=== PATIENT | female | born 1950 | race Caucasian/White ===

== ENCOUNTER 2022-01-13 11:10 | Outpatient (REF) | payer OTHER, SELFPAY ==
[2022-01-13 13:40] LABS: MANUAL DIFF FLAG NO
[2022-01-13 13:47] LABS: Basophils Absolute Auto 0.1 X10*3/uL (0.0-0.2); Basophils Percent Auto 1.2 % (0-2); Eosinophils Absolute Auto 0.2 X10*3/uL (0.0-0.4); Hematocrit 34.9 % (37.0-47.0); Hemoglobin 11.5 g/dl (12.0-16.0); Imm Gran Abs Auto 0.02 X10*3/uL (0.00-0.03); Imm Gran Pct Auto 0.4 % (0.0-0.4); Lymphocytes Absolute Auto 1.4 X10*3/uL (1.2-4.9); Lymphocytes Percent Auto 25.4 % (20-40); Mean Corpuscular Hemoglobin 29.1 pg (27.0-33.0); Mean Corpuscular Volume 88.4 fL (80.0-98.0); Mean Platelet Volume 9.2 fL (9.4-12.3); Monocytes Absolute Auto 0.4 X10*3/uL (0.1-1.2); Monocytes Percent Auto 7.4 % (2-11); Neutrophils Absolute Auto 3.5 x10*3/uL (2.0-8.3); Neutrophils Percent Auto 62.6 % (45-73); Platelet Count 372 X10*3/uL (160-400); Red Blood Count 3.95 X10*6/uL (4.20-5.50); Red Cell Distribution Width 12.7 % (11.0-16.0); White Blood Count 5.7 X10*3/uL (4.8-10.8)
[2022-01-13 14:28] LABS: Erythrocyte Sedimentation Rate 55 MM/HR (0-20)
[2022-01-13 14:30] LABS: Alanine Aminotransferase 25 U/L (0-31); Alkaline Phosphatase 132 U/L (39-117); Anion Gap 14 (12-20); Aspartate Amino Transferase 25 U/L (5-31); Bilirubin Total 0.4 mg/dL (0.0-1.0); Blood Urea Nitrogen 10 mg/dL (9-16); C Reactive Protein 0.88 mg/dL (< or = 0.50); Calcium 9.4 mg/dL (8.4-10.2); Carbon Dioxide 27 mmol/L (22-29); Chloride 103 mmol/L (96-108); Estimated Glomerular Filt Rate > 60; Glucose Random 91 mg/dL (60-115); Potassium 4.5 mmol/L (3.3-5.1); Sodium 139 mmol/L (135-145); Total Protein 7.6 g/dL (6.5-8.0)
[2022-01-14 07:53] LABS: HBS Num1 1.62 mIU/mL (0-7.99); HBc Num1 0.15 S/CO (0.00-0.79); HBsAGNum1 0.23 S/CO (0.00-0.99); Hepatitis B Core Antibody Nonreactive (Nonreactive); Hepatitis B Surface Antigen Negative (Negative); ~HepC Num1 0.09 S/CO (0.00-0.79); ~Hepatitis B Surface Antibody NONREACTIVE (Nonreactive); ~Hepatitis C Antibody Nonreactive (Nonreactive)
[2022-01-14 18:31] LABS: Cyclic Citrullinated Peptide >250 UNITS
[2022-01-15 07:55] LABS: Hepatitis A Antibody IgM 0.12 Index (0-0.79); ~Hepatitis A Antibody IgM Nonreactive (Nonreactive)
[2022-01-18 12:46] LABS: TS Negative Control Passed; TS Panel A 0; TS Panel B 0; TS Positive Control Passed; TSpotTB Negative (Negative)
== END 2022-01-13 11:11 | disposition home or self-care (01) ==
LOC: HO.10HDL 11:10
PROVIDERS: Visit Provider Internal Medicine Rheumatology
DX: Z11.1 Encounter for screening for respiratory tuberculosis (principal); M06.9 Rheumatoid arthritis, unspecified
CPT/HCPCS: 36415; 80053; 85025; 85652; 86140; 86200; 86431; 86481; 86704; 86706; 86709; 86803; 87340

== ENCOUNTER 2022-03-02 10:10 | Outpatient (REF) | payer OTHER, SELFPAY ==
[2022-03-02 10:49] LABS: MANUAL DIFF FLAG NO
[2022-03-02 10:53] LABS: Basophils Absolute Auto 0.1 X10*3/uL (0.0-0.2); Basophils Percent Auto 1.2 % (0-2); Eosinophils Absolute Auto 0.2 X10*3/uL (0.0-0.4); Eosinophils Percent Auto 3.1 % (0-4); Hematocrit 34.5 % (37.0-47.0); Hemoglobin 11.2 g/dl (12.0-16.0); Imm Gran Abs Auto 0.01 X10*3/uL (0.00-0.03); Imm Gran Pct Auto 0.1 % (0.0-0.4); Lymphocytes Absolute Auto 1.7 X10*3/uL (1.2-4.9); Lymphocytes Percent Auto 25.2 % (20-40); Mean Corpuscular HGB Conc 32.5 g/dl (31.0-35.0); Mean Corpuscular Volume 89.4 fL (80.0-98.0); Mean Platelet Volume 9.1 fL (9.4-12.3); Monocytes Absolute Auto 0.5 X10*3/uL (0.1-1.2); Monocytes Percent Auto 6.7 % (2-11); Neutrophils Absolute Auto 4.2 x10*3/uL (2.0-8.3); Neutrophils Percent Auto 63.7 % (45-73); Platelet Count 458 X10*3/uL (160-400); Red Blood Count 3.86 X10*6/uL (4.20-5.50); Red Cell Distribution Width 12.8 % (11.0-16.0); White Blood Count 6.7 X10*3/uL (4.8-10.8)
[2022-03-02 11:04] LABS: Alanine Aminotransferase 20 U/L (0-31); Aspartate Amino Transferase 17 U/L (5-31); C Reactive Protein 0.53 mg/dL (< or = 0.50); Estimated Glomerular Filt Rate > 60
[2022-03-02 11:33] LABS: Erythrocyte Sedimentation Rate 64 MM/HR (0-20)
== END 2022-03-02 10:11 | disposition home or self-care (01) ==
LOC: HO.10HDL 10:10
PROVIDERS: Visit Provider Internal Medicine Rheumatology
DX: M06.9 Rheumatoid arthritis, unspecified (principal); Z79.899 Other long term (current) drug therapy
CPT/HCPCS: 36415; 82565; 84450; 84460; 85025; 85652; 86140

== ENCOUNTER 2022-05-26 12:21 | Outpatient (REF) | payer OTHER, SELFPAY ==
[2022-05-26 13:55] LABS: MANUAL DIFF FLAG NO
[2022-05-26 14:01] LABS: Basophils Absolute Auto 0.1 X10*3/uL (0.0-0.2); Basophils Percent Auto 1.3 % (0-2); Eosinophils Absolute Auto 0.2 X10*3/uL (0.0-0.4); Eosinophils Percent Auto 3.1 % (0-4); Hematocrit 33.8 % (37.0-47.0); Imm Gran Abs Auto 0.01 X10*3/uL (0.00-0.03); Imm Gran Pct Auto 0.2 % (0.0-0.4); Lymphocytes Absolute Auto 1.8 X10*3/uL (1.2-4.9); Lymphocytes Percent Auto 30.1 % (20-40); Mean Corpuscular HGB Conc 32.5 g/dl (31.0-35.0); Mean Corpuscular Hemoglobin 29.1 pg (27.0-33.0); Mean Corpuscular Volume 89.4 fL (80.0-98.0); Mean Platelet Volume 9.3 fL (9.4-12.3); Monocytes Absolute Auto 0.4 X10*3/uL (0.1-1.2); Monocytes Percent Auto 6.8 % (2-11); Neutrophils Absolute Auto 3.6 x10*3/uL (2.0-8.3); Neutrophils Percent Auto 58.5 % (45-73); Platelet Count 393 X10*3/uL (160-400); Red Blood Count 3.78 X10*6/uL (4.20-5.50); Red Cell Distribution Width 12.7 % (11.0-16.0); White Blood Count 6.1 X10*3/uL (4.8-10.8)
[2022-05-26 14:21] LABS: Alanine Aminotransferase 15 U/L (0-31); Aspartate Amino Transferase 16 U/L (5-31); C Reactive Protein 0.42 mg/dL (< or = 0.50); Estimated Glomerular Filt Rate > 60
[2022-05-26 14:39] LABS: Erythrocyte Sedimentation Rate 44 MM/HR (0-20)
== END 2022-05-26 12:22 | disposition home or self-care (01) ==
LOC: HO.WFDLDS 12:21
PROVIDERS: Visit Provider Internal Medicine Rheumatology
DX: M06.9 Rheumatoid arthritis, unspecified (principal); Z79.899 Other long term (current) drug therapy
CPT/HCPCS: 36415; 82565; 84450; 84460; 85025; 85652; 86140

== ENCOUNTER → 2022-06-02 09:42 | Outpatient (BNVA) | payer OTHER, SELFPAY | PROVIDERS: PCP Internal Medicine; Visit Provider Internal Medicine Rheumatology | DX: M17.0 Bilateral primary osteoarthritis of knee (principal) ==

== ENCOUNTER 2022-09-09 11:01 | Outpatient (REF) | payer OTHER, SELFPAY ==
[2022-09-09 14:23] LABS: MANUAL DIFF FLAG NO
[2022-09-09 14:27] LABS: Basophils Absolute Auto 0.1 X10*3/uL (0.0-0.2); Basophils Percent Auto 1.6 % (0-2); Eosinophils Absolute Auto 0.2 X10*3/uL (0.0-0.4); Hematocrit 32.7 % (37.0-47.0); Hemoglobin 10.8 g/dl (12.0-16.0); Imm Gran Abs Auto 0.01 X10*3/uL (0.00-0.03); Imm Gran Pct Auto 0.2 % (0.0-0.4); Lymphocytes Absolute Auto 1.7 X10*3/uL (1.2-4.9); Mean Corpuscular Hemoglobin 29.9 pg (27.0-33.0); Mean Corpuscular Volume 90.6 fL (80.0-98.0); Mean Platelet Volume 9.3 fL (9.4-12.3); Monocytes Absolute Auto 0.4 X10*3/uL (0.1-1.2); Monocytes Percent Auto 6.9 % (2-11); Neutrophils Absolute Auto 3.7 x10*3/uL (2.0-8.3); Neutrophils Percent Auto 60.3 % (45-73); Platelet Count 404 X10*3/uL (160-400); Red Blood Count 3.61 X10*6/uL (4.20-5.50); Red Cell Distribution Width 13.4 % (11.0-16.0); White Blood Count 6.1 X10*3/uL (4.8-10.8)
[2022-09-09 14:34] LABS: Alanine Aminotransferase 27 U/L (0-31); Aspartate Amino Transferase 22 U/L (5-31); C Reactive Protein 0.53 mg/dL (< or = 0.50); Estimated Glomerular Filt Rate > 60
[2022-09-09 15:19] LABS: Erythrocyte Sedimentation Rate 38 MM/HR (0-20)
== END 2022-09-09 11:02 | disposition home or self-care (01) ==
LOC: HO.WFDLDS 11:01
PROVIDERS: Visit Provider Internal Medicine Rheumatology
DX: M06.9 Rheumatoid arthritis, unspecified (principal); Z79.899 Other long term (current) drug therapy
CPT/HCPCS: 36415; 82565; 84450; 84460; 85025; 85652; 86140

== ENCOUNTER 2022-09-15 08:33 | Outpatient (REF) | payer OTHER, SELFPAY ==
--- NOTE | ~2022-09-15 | XR_ITS ---
EXAMINATION: XR HIP, RIGHT CLINICAL INFORMATION: Pain COMPARISON: None available. TECHNIQUE: Two views of the right hip. FINDINGS: Bone alignment is normal. No fracture or dislocation. Severe right hip arthritis with joint space narrowing, osteophyte formation and subchondral cyst formation. Soft tissues are normal. XR/XR hip RT min 2V IMPRESSION: Severe right hip osteoarthritis.
== END 2022-09-15 08:34 | disposition home or self-care (01) ==
LOC: HO.XRAY 08:33
PROVIDERS: PCP Internal Medicine; Visit Provider Internal Medicine Rheumatology
DX: M06.9 Rheumatoid arthritis, unspecified (principal); M25.551 Pain in right hip; M17.0 Bilateral primary osteoarthritis of knee; Z79.899 Other long term (current) drug therapy
CPT/HCPCS: 73502

== ENCOUNTER 2022-11-22 12:36 | Outpatient (REF) | payer OTHER, SELFPAY ==
[2022-11-22 13:48] LABS: MANUAL DIFF FLAG NO
[2022-11-22 14:01] LABS: Basophils Absolute Auto 0.1 X10*3/uL (0.0-0.2); Basophils Percent Auto 1.9 % (0-2); Eosinophils Absolute Auto 0.2 X10*3/uL (0.0-0.4); Eosinophils Percent Auto 3.4 % (0-4); Hematocrit 32.9 % (37.0-47.0); Imm Gran Abs Auto 0.03 X10*3/uL (0.00-0.03); Imm Gran Pct Auto 0.4 % (0.0-0.4); Lymphocytes Absolute Auto 1.6 X10*3/uL (1.2-4.9); Lymphocytes Percent Auto 23.7 % (20-40); Mean Corpuscular HGB Conc 33.4 g/dl (31.0-35.0); Mean Corpuscular Hemoglobin 30.1 pg (27.0-33.0); Mean Corpuscular Volume 89.9 fL (80.0-98.0); Mean Platelet Volume 9.3 fL (9.4-12.3); Monocytes Absolute Auto 0.4 X10*3/uL (0.1-1.2); Monocytes Percent Auto 6.4 % (2-11); Neutrophils Absolute Auto 4.3 x10*3/uL (2.0-8.3); Neutrophils Percent Auto 64.2 % (45-73); Platelet Count 352 X10*3/uL (160-400); Red Blood Count 3.66 X10*6/uL (4.20-5.50); Red Cell Distribution Width 13.2 % (11.0-16.0); White Blood Count 6.7 X10*3/uL (4.8-10.8)
[2022-11-22 14:21] LABS: Alanine Aminotransferase 18 U/L (0-31); Aspartate Amino Transferase 19 U/L (5-31); C Reactive Protein 0.58 mg/dL (< or = 0.50); Estimated Glomerular Filt Rate > 60
[2022-11-22 14:51] LABS: Erythrocyte Sedimentation Rate 40 MM/HR (0-20)
== END 2022-11-22 12:37 | disposition home or self-care (01) ==
LOC: HO.WFDLDS 12:36
PROVIDERS: Visit Provider Internal Medicine Rheumatology
DX: M06.9 Rheumatoid arthritis, unspecified (principal); Z79.899 Other long term (current) drug therapy
CPT/HCPCS: 36415; 82565; 84450; 84460; 85025; 85652; 86140

== ENCOUNTER 2022-12-16 09:26 | Outpatient (AMB) | payer OTHER, SELFPAY ==
[2022-12-16 09:28] VITALS: BP 118/70; PULSE 76; TEMP 36.5; O2SAT 97; BMI 24.9
--- NOTE | 2022-12-16 09:28 | MHC.OFFVIS ---
Intake Vital Signs 12/16/22 09:28 Height 5 ft 4 in Weight 145 lb 4.554 oz BMI 24.9 BP 118/70 Blood Pressure Location Rt brachial Position Sitting Pulse 76 Pulse Source Pulse Oximeter Temp 97.7 F Temp Source Skin Pulse Oximetry (%) 97 Intake Visit Reasons: RA Intake Note: Pt seen today for RA follow up. Reports she went to [place] ED for stomach issues last week. Representative Government Relations Required: No Accompanied by: Self / Same As Patient Allergies erythromycin base Allergy (Intermediate, Verified 12/16/22 09:30) Vomiting Seasonal Allergies Allergy (Intermediate, Verified 12/16/22 09:30) Runny Nose codeine [CODEINE] Allergy (Unknown, Unverified 12/16/22 09:30) NAUSEA Medication List - Last Reconciled 12/16/22 by Jef Turner MD acetaminophen ER (Tylenol 8 Hour) 650 mg PO Q8H PRN calcium carbonate-vitamin D3 500 mg-10 mcg (400 unit) (Calcium 500 With D) 1 tab PO BID cyanocobalamin (vitamin B-12) 500 mcg PO DAILY famotidine 20 mg PO BID folic acid 1 mg PO DAILY methotrexate sodium 15 mg (6 x 2.5 mg) PO QWEEK psyllium husk (Metamucil) 1 tbsp PO DAILY HPI HPI Comments History of Present Illness Details The patient returns for evaluation of her rheumatoid arthritis. She remains on 15 mg weekly methotrexate and folic acid 1 mg daily. She had another episode of left lower quadrant pain. She went to the ER last week. CT scanning did not reveal diverticulitis. Her methotrexate was continued. She says she is thought to have irritable bowel symptoms. She does take Metamucil which is somewhat helpful but she alternates between constipation and diarrhea. There is some intermittent medial knee compartment pain with walking. She has known mild osteoarthritis in the right hip but that does not currently bother her. PFSH Surgical History Hx of cataract extraction Hx of colonoscopy Hx of eye surgery Hx of tonsillectomy S/P breast biopsy, right S/P fine needle aspiration Family History Mother Anemia Breast cancer Hypertension Father Rheumatoid arthritis Lung cancer Hypertension Daughter Thyroid cancer Social History Household Members Other:: lives alone Housing: House Are you a primary day care aide to a significant other at home: No Do you presently have visiting nurse or other home services: No 75 years or older and lives alone: No Alcohol intake: current Alcohol intake frequency: holidays/special occasions only Alcohol type: hard liquor Patient Tobacco Use Status: Former Tobacco user Quit Date: 2017 e-Cigarette/Vaping Use: Never Used service: No Current occupational status: retired 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 Card Details: Negative chest pain, edema and syncope Resp Details: Negative for SOB, cough and wheezing GI Details: Alternating constipation and diarrhea. Occasional lower abdominal pains. Negative indigestion/heartburn, nausea, bowel changes, and bloody stool. Details: Negative for dysuria, hematuria, nocturia, decreased force/flow and genital discharge Endo Details: Negative for polyuria and polydypsia Cesar/Lymph Details: Negative for excessive bruising or bleeding. Physical Exam Vital Signs: Last Vital Signs Temp 97.7 F 12/16/22 09:28 Pulse 76 12/16/22 09:28 BP 118/70 12/16/22 09:28 Pulse Ox 97 12/16/22 09:28 BMI result Body Mass Index 24.9 APPEARANCE: Patient in no acute distress EYES no redness, pupils equal and reactive to light, eyelids normal ABD: Normal bowel sounds, no organomegaly, masses or tenderness. EXTREMITIES: No edema, no calf tenderness, normal peripheral pulses. JOINT EXAM:?? Cervical Spine:.? Mild discomfort with lateral flexion at 10 degrees of rotation at 45 degrees.? Some cervical muscle tenderness. Thoracic Spine:.? No scoliosis.? No tenderness on palpation. Lumbar Spine:.? Alignment normal.? Full range of motion without pain, no tenderness. Chest Wall:.? No tenderness, swelling, increased warmth or erythema. Hands:.? Right:? There is mild soft tissue swelling at the 1st 3 MCPs but they are not tender today.? There is some bony enlargement without tenderness at the thumb IP and 2nd PIP joints..? There is no thenar atrophy, flexor tendon triggering, or sensory loss.? Left:? There is a suggestion of some slight swelling in the 1st MCP joint but they are not tender.? There is some minimal bony enlargement at the thumb IP joint without tenderness.? No thenar atrophy, sensory loss or flexor tendon triggering.? Wrists: Right: Mild pain with flexion extension at 75 degrees with some slight dorsal tenderness.? There does seem to be some thickening on the volar aspect.? No redness or warmth.? Left: Pain-free range of motion to 75 degrees flexion or extension with some slight volar thickening and mild tenderness today.? No redness or warmth.? Negative Phalen's and Tinel signs. Elbows:. Normal pain-free range of motion without tenderness, swelling, increased warmth or erythema. Shoulders:.?? Left: Slight pain with extremes of motion with some minimal anterior tenderness.? No abductor weakness or adenopathy .? Right:? Full range of motion without pain. No tenderness, weakness, swelling, increased warmth or erythema. Hips:? Right:? She has limitation of internal and external rotation.? There is no apparent hyperabduction possible.? Attempts to push these ranges of motion cause some groin and buttock pains.? normal pain free range of motion..? Left:? Full range of motion without pain. Hip bursa:.? No tenderness. Knees: Right:? Mild patellofemoral crepitus with pain at the extremes of full extension or flexion beyond 90 degrees.? There is mild medial tenderness without effusion, tenderness, swelling, increased warmth or erythema.? Left:? Mild pain with extremes of flexion or extension.? There is moderate patellofemoral crepitus and mild medial tenderness with no effusion, redness or warmth. Ankles:.? Normal pain-free range of motion without tenderness, swelling, increased warmth or erythema. Feet:? Normal pain-free range of motion with mild 1st MTP bony enlargement bilaterally.? There is hallux valgus deformity bilaterally but no tenderness, soft tissue swelling, increased warmth or erythema.? Results Reviewed Results Reviewed: Laboratory Tests 11/22/22 11/22/22 11/22/22 12:40 12:40 12:40 WBC 6.7 Hgb 11.0 L ESR 40 H Creatinine 0.72 AST 19 ALT 18 C-Reactive Protein 0.58 H 12/06/2022: Lab work from [facility]: Hemoglobin 11.5, white count normal, AST 17, ALT 16, creatinine 0.7 [facility] Result Report Patient: Johanne Gomes Date of Service: 05/26/21 ? ? Patient Gender: Female Ordering Provider: Denise Rubio : 1950 ? ? ? Final X-RAY KNEE 3 VIEW - W/O INJURY Exam Date: 05/26/2021 11:05 AM Ordering Diagnosis: Chronic pain of both knees ? History: Chronic pain. ? Bilateral knees, 3 views each: ? PRIOR: None. ? FINDINGS: Bony structures are radiographically intact. ? There is moderate narrowing of the medial femoral tibial compartment bilaterally. ? There is mild degenerative spurring of the patellofemoral compartment of the right knee. ? There is mild degenerative spurring of the medial femoral tibial compartment and patellofemoral compartment of the left knee. ? There is a small left knee joint effusion. ? There is atherosclerosis. ? IMPRESSION Degenerative changes of both knees, left greater than right. ? Small left knee joint effusion. ? 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 Rheumatoid factor and CCP markedly positive. January,: Methotrexate started Code(s): M06.9 - Rheumatoid arthritis, unspecified Plan Rheumatoid arthritis with good control of symptoms with current treatment. Unfortunately she still gets this abdominal pain and and she has a hiistory of 1 episode of diverticulitis. Therefore there will always be this concern that these episodes of pain could be another bout of diverticulitis. For now we will continue with current treatment as the lab work looks good. She does have some mild OA in the right hip and knees but hopefully those will not progress with continued treatment of her rheumatoid arthritis. We will schedule her back for 3-4 months with lab work before that visit. Orders: Orders Alanine Aminotransferase Today M06.9 - Rheumatoid arthritis, unspecified, Z79.899 - Other termite control service representative (current) drug therapy Aspartate Amino Transferase Today M06.9 - Rheumatoid arthritis, unspecified, Z79.899 - Other senior care (current) drug therapy Creatinine Today M06.9 - Rheumatoid arthritis, unspecified, Z79.899 - Other termite control service representative (current) drug therapy C Reactive Protein Today M06.9 - Rheumatoid arthritis, unspecified Complete Blood Count Auto Diff Today M06.9 - Rheumatoid arthritis, unspecified, Z79.899 - Other senior care (current) drug therapy Erythrocyte Sedimentation Rate Today M06.9 - Rheumatoid arthritis, unspecified Coding Level of Care Code Est Pt Level 3 (39831) Diagnoses Osteoarthritis of knees, bilateral M17.0 Osteoarthritis of right hip M16.11 MCC current use of immunosuppressive drug Z79.899 Rheumatoid arthritis M06.9
== END 2022-12-16 09:57 | disposition home or self-care (01) ==
PROVIDERS: PCP Internal Medicine; Visit Provider Internal Medicine Rheumatology
DX: M17.0 Bilateral primary osteoarthritis of knee (principal); M16.11 Unilateral primary osteoarthritis, right hip; Z79.899 Other long term (current) drug therapy; M06.9 Rheumatoid arthritis, unspecified
CPT/HCPCS: 99213

== ENCOUNTER → 2022-12-16 09:26 | Outpatient (BNVA) | payer OTHER, SELFPAY | PROVIDERS: PCP Internal Medicine; Visit Provider Internal Medicine Rheumatology ==

== ENCOUNTER 2023-04-12 12:15 | Outpatient (REF) | payer OTHER, SELFPAY ==
[2023-04-12 14:41] LABS: MANUAL DIFF FLAG NO
[2023-04-12 14:43] LABS: Basophils Absolute Auto 0.1 X10*3/uL (0.0-0.2); Basophils Percent Auto 1.8 % (0-2); Eosinophils Absolute Auto 0.1 X10*3/uL (0.0-0.4); Eosinophils Percent Auto 2.4 % (0-4); Hematocrit 32.9 % (37.0-47.0); Hemoglobin 10.8 g/dl (12.0-16.0); Imm Gran Abs Auto 0.01 X10*3/uL (0.00-0.03); Imm Gran Pct Auto 0.2 % (0.0-0.4); Lymphocytes Absolute Auto 1.2 X10*3/uL (1.2-4.9); Lymphocytes Percent Auto 23.6 % (20-40); Mean Corpuscular HGB Conc 32.8 g/dl (31.0-35.0); Mean Corpuscular Hemoglobin 29.1 pg (27.0-33.0); Mean Corpuscular Volume 88.7 fL (80.0-98.0); Mean Platelet Volume 9.2 fL (9.4-12.3); Monocytes Absolute Auto 0.4 X10*3/uL (0.1-1.2); Monocytes Percent Auto 6.9 % (2-11); Neutrophils Absolute Auto 3.3 x10*3/uL (2.0-8.3); Neutrophils Percent Auto 65.1 % (45-73); Platelet Count 350 X10*3/uL (160-400); Red Blood Count 3.71 X10*6/uL (4.20-5.50); Red Cell Distribution Width 13.5 % (11.0-16.0); White Blood Count 5.1 X10*3/uL (4.8-10.8)
[2023-04-12 15:05] LABS: Estimated Glomerular Filt Rate > 60
[2023-04-12 15:24] LABS: Erythrocyte Sedimentation Rate 51 MM/HR (0-20)
== END 2023-04-12 12:16 | disposition home or self-care (01) ==
LOC: HO.WFDLDS 12:15
PROVIDERS: Visit Provider Internal Medicine Rheumatology
DX: M06.9 Rheumatoid arthritis, unspecified (principal); Z79.899 Other long term (current) drug therapy
CPT/HCPCS: 36415; 82565; 85025; 85652

== ENCOUNTER 2023-04-21 10:37 | Outpatient (AMB) | payer OTHER, SELFPAY ==
[2023-04-21 10:44] VITALS: BP 138/70; PULSE 69; RESP 15; TEMP 36.6; O2SAT 98; BMI 24.0
--- NOTE | 2023-04-21 10:44 | A.OFFVIS_ITS ---
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 Required: No Accompanied by: Self / Same As Patient Allergies erythromycin base Allergy (Intermediate, Verified 04/21/23 10:46) Vomiting Seasonal Allergies Allergy (Intermediate, Verified 04/21/23 10:46) Runny Nose codeine [CODEINE] Allergy (Unknown, Unverified 04/21/23 10:46) NAUSEA Medication List - Last Reconciled 04/21/23 by Maggie Souza RN acetaminophen ER (Tylenol 8 Hour) 650 mg PO Q8H PRN calcium carbonate-vitamin D3 500 mg-10 mcg (400 unit) (Calcium 500 With D) 1 tab PO BID cyanocobalamin (vitamin B-12) 500 mcg PO DAILY famotidine 20 mg PO BID folic acid 1 mg PO DAILY methotrexate sodium 15 mg (6 x 2.5 mg) PO QWEEK NS psyllium husk (Metamucil) 1 tbsp PO DAILY HPI HPI Comments History of Present Illness Details The patient returns for evaluation of her rheumatoid arthritis. She remains on methotrexate 15 mg weekly, folic acid 1 mg daily, acetaminophen 650 mg 2 or 3 times a day if needed for pain. In general the peripheral joints are doing okay. She does have some pain in the knees particularly with longer periods of standing or walking. On those days she does take more acetaminophen. She does not think she has had any side effects with the medication. There is intermittent lower abdominal crampy pain. This is helped with various laxatives. She is currently taking the prune juice rather than the Metamucil. PFSH Surgical History Hx of cataract extraction Hx of colonoscopy Hx of eye surgery Hx of tonsillectomy S/P breast biopsy, right S/P fine needle aspiration Family History Mother Anemia Breast cancer Hypertension Father Rheumatoid arthritis Lung cancer Hypertension Daughter Thyroid cancer Social History (Reviewed 12/16/22 @ 09:32 by OBED Welch Household Members Other:: lives alone Housing: House Are you a primary primary care physician to a significant other at home: No Do you presently have visiting nurse or other home services: No Alcohol intake: current Alcohol intake frequency: holidays/special occasions only Alcohol type: hard liquor Patient Tobacco Use Status: Former Tobacco user Quit Date: 2017 e-Cigarette/Vaping Use: Never Used service: No Current occupational status: retired 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 Card Details: Negative chest pain, edema and syncope Resp Details: Negative for SOB, cough and wheezing GI Details: Intermittent crampy pains with constipation. Thought to be IBS. Negative indigestion/heartburn, nausea, bowel changes, diarrhea, constipation and bloody stool. Endo Details: Negative for polyuria and polydypsia Cesar/Lymph Details: Negative for excessive bruising or bleeding. Physical Exam Vital Signs: Last Vital Signs Temp 97.8 F 04/21/23 10:44 Pulse 69 04/21/23 10:44 Resp 15 04/21/23 10:44 BP 138/70 04/21/23 10:44 Pulse Ox 98 04/21/23 10:44 Oxygen Delivery Method Room Air 04/21/23 10:44 BMI result Body Mass Index 24.0 APPEARANCE: Patient in no acute distress EYES no redness, pupils equal and reactive to light, eyelids normal ABD: Normal bowel sounds, no organomegaly, masses or tenderness. EXTREMITIES: No edema, no calf tenderness, normal peripheral pulses. JOINT EXAM:?? Cervical Spine:? Mild discomfort with lateral flexion at 10 degrees of rotation at 45 degrees.? Some cervical muscle tenderness. Thoracic Spine:.? No scoliosis.? No tenderness on palpation. Lumbar Spine:.? Alignment normal.? Full range of motion without pain, no tenderness. Chest Wall:.? No tenderness, swelling, increased warmth or erythema. Hands:.? Right:? There is mild soft tissue swelling at the 3rd MCP without tenderness today.? There is some bony enlargement without tenderness at the thumb IP and 2nd PIP joints..? There is no thenar atrophy, flexor tendon triggering, or sensory loss.? Left:? There is a suggestion of some slight swelling in the 1st MCP joint but it is not tender.? There is some minimal bony enlargement at the thumb IP joint without tenderness.? No thenar atrophy, sensory loss or flexor tendon triggering.? Wrists: Right: No pain with flexion extension at 75 degrees with some slight dorsal tenderness.? There does seem to be some thickening on the volar aspect.? No redness or warmth.? Left: Pain-free range of motion to 75 degrees flexion or extension with some slight volar thickening and mild tenderness today.? No redness or warmth.? Negative Phalen's and Tinel signs. Elbows: Normal pain-free range of motion without tenderness, swelling, increased warmth or erythema. Shoulders:?? Left: Slight pain with extremes of motion with some minimal anterior tenderness.? No abductor weakness or adenopathy .? Right:? Full range of motion without pain. No tenderness, weakness, swelling, increased warmth or erythema. Hips:? Right:? She has limitation of internal and external rotation.? There is no apparent hyperextension possible.? Attempts to push these ranges of motion cause some groin and buttock pains.? normal pain free range of motion..? Left:? Full range of motion without pain. Hip bursa:.? No tenderness. Knees: Right:? Mild patellofemoral crepitus with pain at the extremes of full extension or flexion beyond 90 degrees.? There is mild medial tenderness without effusion, tenderness, swelling, increased warmth or erythema.? Left:? Mild pain with extremes of flexion or extension.? There is moderate patellofemoral crepitus and mild medial tenderness with no effusion, redness or warmth. Ankles:? Normal pain-free range of motion without tenderness, swelling, increased warmth or erythema. Feet:? Normal pain-free range of motion with mild 1st MTP bony enlargement bilaterally.? There is hallux valgus deformity bilaterally but no tenderness, soft tissue swelling, increased warmth or erythema.? Results Reviewed Results Reviewed: Laboratory Tests 11/22/22 04/12/23 12:40 12:17 WBC 5.1 Hgb 10.8 L ESR 51 H Creatinine 0.70 AST 19 ALT 18 C-Reactive Protein 0.58 H Assessment & Plan Assessment & Plan (1) Osteoarthritis of right hip: Code(s): M16.11 - Unilateral primary osteoarthritis, right hip (2) residential current use of immunosuppressive drug: Code(s): Z79.899 - Other retirement (current) drug therapy (3) Osteoarthritis of knees, bilateral: Code(s): M17.0 - Bilateral primary osteoarthritis of knee (4) Rheumatoid arthritis: Comment: Onset May 2021. Rheumatoid factor and CCP markedly positive. January,: Methotrexate started Code(s): M06.9 - Rheumatoid arthritis, unspecified Plan Rheumatoid arthritis with I think good control of synovitis with current treatment. The knee pain I think is primarily due to longstanding osteoarthritis. She also has some findings of OA in the hips, more common on the right. That may be giving her some knee pain but she does not really have much in the way of hip pain. She is tolerating the methotrexate at the above dose so we will continue as above. For some reason the LFTs did not get checked with the lab work last weeks so I will ask her to go to the lab today. Labs are also ordered before the next visit in about 4 months. Orders: Orders Erythrocyte Sedimentation Rate Today M06.9 - Rheumatoid arthritis, unspecified Alanine Aminotransferase Today M06.9 - Rheumatoid arthritis, unspecified, Z79.899 - Other retirement (current) drug therapy Aspartate Amino Transferase Today M06.9 - Rheumatoid arthritis, unspecified, Z79.899 - Other retirement (current) drug therapy Complete Blood Count Auto Diff Today M06.9 - Rheumatoid arthritis, unspecified, Z79.899 - Other retirement (current) drug therapy C Reactive Protein Today M06.9 - Rheumatoid arthritis, unspecified Creatinine Today M06.9 - Rheumatoid arthritis, unspecified, Z79.899 - Other intermodal truck driver (current) drug therapy Coding Level of Care Code Est Pt Level 3 (19640) Diagnoses Osteoarthritis of right hip 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
== END 2023-04-21 11:08 | disposition home or self-care (01) ==
PROVIDERS: PCP Internal Medicine; Visit Provider Internal Medicine Rheumatology
DX: M16.11 Unilateral primary osteoarthritis, right hip (principal); Z79.899 Other long term (current) drug therapy; M17.0 Bilateral primary osteoarthritis of knee; M06.9 Rheumatoid arthritis, unspecified
CPT/HCPCS: 99213

== ENCOUNTER → 2023-04-21 10:37 | Outpatient (BNVA) | payer OTHER, SELFPAY | PROVIDERS: PCP Internal Medicine; Visit Provider Internal Medicine Rheumatology ==

== ENCOUNTER 2023-04-21 11:12 | Outpatient (REF) | payer OTHER, SELFPAY ==
[2023-04-21 13:45] LABS: Alanine Aminotransferase 16 U/L (0-31); Aspartate Amino Transferase 15 U/L (5-31)
== END 2023-04-21 11:13 | disposition home or self-care (01) ==
LOC: HO.10HDL 11:12
PROVIDERS: Visit Provider Internal Medicine Rheumatology
DX: M06.9 Rheumatoid arthritis, unspecified (principal); Z79.899 Other long term (current) drug therapy
CPT/HCPCS: 36415; 84450; 84460

== ENCOUNTER 2023-08-12 11:17 | Outpatient (REF) | payer OTHER, SELFPAY ==
[2023-08-12 15:08] LABS: MANUAL DIFF FLAG NO
[2023-08-12 15:20] LABS: Basophils Absolute Auto 0.1 X10*3/uL (0.0-0.2); Basophils Percent Auto 1.4 % (0-2); Eosinophils Absolute Auto 0.1 X10*3/uL (0.0-0.4); Eosinophils Percent Auto 1.9 % (0-4); Hematocrit 32.7 % (37.0-47.0); Hemoglobin 10.8 g/dl (12.0-16.0); Imm Gran Abs Auto 0.02 X10*3/uL (0.00-0.03); Imm Gran Pct Auto 0.3 % (0.0-0.4); Lymphocytes Absolute Auto 1.3 X10*3/uL (1.2-4.9); Lymphocytes Percent Auto 21.2 % (20-40); Mean Corpuscular Hemoglobin 29.5 pg (27.0-33.0); Mean Corpuscular Volume 89.3 fL (80.0-98.0); Mean Platelet Volume 9.5 fL (9.4-12.3); Monocytes Absolute Auto 0.4 X10*3/uL (0.1-1.2); Monocytes Percent Auto 6.6 % (2-11); Neutrophils Absolute Auto 4.3 x10*3/uL (2.0-8.3); Neutrophils Percent Auto 68.6 % (45-73); Platelet Count 367 X10*3/uL (160-400); Red Blood Count 3.66 X10*6/uL (4.20-5.50); Red Cell Distribution Width 13.8 % (11.0-16.0); White Blood Count 6.3 X10*3/uL (4.8-10.8)
[2023-08-12 15:52] LABS: Alanine Aminotransferase 17 U/L (0-31); Aspartate Amino Transferase 15 U/L (5-31); Estimated Glomerular Filt Rate > 60
[2023-08-12 15:57] LABS: Erythrocyte Sedimentation Rate 57 MM/HR (0-20)
== END 2023-08-12 11:18 | disposition home or self-care (01) ==
LOC: HO.WFDLDS 11:17
PROVIDERS: Visit Provider Internal Medicine Rheumatology
DX: M06.9 Rheumatoid arthritis, unspecified (principal); Z79.899 Other long term (current) drug therapy
CPT/HCPCS: 36415; 82565; 84450; 84460; 85025; 85652; 86140

== ENCOUNTER 2023-08-18 11:36 | Outpatient (AMB) | payer OTHER, SELFPAY ==
--- NOTE | 2023-08-18 11:43 | MHC.OFFVIS ---
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: No Accompanied by: Self / Same As Patient Allergies erythromycin base Allergy (Intermediate, Verified 08/18/23 11:44) Vomiting Seasonal Allergies Allergy (Intermediate, Verified 08/18/23 11:44) Runny Nose codeine [CODEINE] Allergy (Unknown, Unverified 08/18/23 11:44) NAUSEA Medication List - Last Reconciled 08/18/23 by BRITTANI Mccann acetaminophen ER (Tylenol 8 Hour) 650 mg PO Q8H PRN calcium carbonate-vitamin D3 500 mg-10 mcg (400 unit) (Calcium 500 With D) 1 tab PO BID cyanocobalamin (vitamin B-12) 500 mcg PO DAILY dicyclomine 10 mg PO TID famotidine 20 mg PO BID folic acid 1 mg PO DAILY methotrexate sodium 15 mg (6 x 2.5 mg) PO QWEEK NS HPI HPI Comments History of Present Illness Details Ms. Hayward 73-year-old female returns for evaluation of her rheumatoid arthritis. She remains on methotrexate 15 mg weekly, folic acid 1 mg daily, acetaminophen 650 mg 2 or 3 times a day if needed for pain. In general the peripheral joints are doing okay but she continues with intermittent swelling and soreness to her hands and feet. She she also does have some pain in the knees particularly with longer periods of standing or walking. On those days she does take more acetaminophen. She denies any no side effects with the medication. There is intermittent lower abdominal crampy pain and she sees GI and was recently prescribed Bentyl. [facility], [facility] Medical History (Updated 08/18/23 @ 14:54 by BRITTANI Mccann) Anemia, iron deficiency Intermittent pain and swelling of hand Surgical History Hx of tonsillectomy Hx of eye surgery Hx of colonoscopy Hx of cataract extraction S/P fine needle aspiration S/P breast biopsy, right Family History Mother Anemia Breast cancer Hypertension Father Rheumatoid arthritis Lung cancer Hypertension Daughter Thyroid cancer Social History Household Members Other:: lives alone Housing: House Are you a primary resident care technician to a significant other at home: No Do you presently have visiting nurse or other home services: No 75 years or older and lives alone: No Alcohol intake: current Alcohol intake frequency: holidays/special occasions only Alcohol type: hard liquor Patient Tobacco Use Status: Former Tobacco user Quit Date: 2017 e-Cigarette/Vaping Use: Never Used service: No Current occupational status: retired 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 Regular rhythm, S1-S2 heard, no murmurs, rubs or gallops. LUNG:? Clear to percussion and auscultation EXTREMITIES: No edema, no calf tenderness, normal peripheral pulses. JOINT EXAM:?? Cervical Spine:? Mild discomfort with lateral flexion at 10 degrees of rotation at 45 degrees.? Some cervical muscle tenderness. Thoracic Spine:.? No scoliosis.? No tenderness on palpation. Lumbar Spine:.? Alignment normal.? Full range of motion without pain, no tenderness. Chest Wall:.? No tenderness, swelling, increased warmth or erythema. Hands:.? Right:? There is mild soft tissue swelling at the 3rd MCP with some tenderness.? There is bony enlargement without tenderness at the thumb IP and but tenderness at 2nd PIP joints..? There is no thenar atrophy, flexor tendon triggering, or sensory loss.? Left:? There is swelling in the 1st MCP joint and is mildly tender.? There is some minimal bony enlargement at the thumb IP joint without tenderness.? No thenar atrophy, sensory loss or flexor tendon triggering.? Wrists: Right: No pain with flexion extension at 75 degrees with some slight dorsal tenderness.? There does seem to be some thickening on the volar aspect.? No redness or warmth.? Left: Pain-free range of motion to 75 degrees flexion or extension with some slight volar thickening and mild tenderness today.? No redness or warmth.? Negative Phalen's and Tinel signs. Elbows: Normal pain-free range of motion without tenderness, swelling, increased warmth or erythema. Shoulders:?? Left: Slight pain with extremes of motion with some minimal anterior tenderness.? No abductor weakness or adenopathy .? Right:? Full range of motion without pain. No tenderness, weakness, swelling, increased warmth or erythema. Hips:? Right:? She has limitation of internal and external rotation.? There is no apparent hyperextension possible.? Attempts to push these ranges of motion cause some groin and buttock pains.? normal pain free range of motion..? Left:? Full range of motion without pain. Hip bursa:.? No tenderness. Knees: Right:? Mild patellofemoral crepitus with pain at the extremes of full extension or flexion beyond 90 degrees.? There is mild medial tenderness without effusion, tenderness, swelling, increased warmth or erythema.? Left:? Mild pain with extremes of flexion or extension.? There is moderate patellofemoral crepitus and mild medial tenderness with no effusion, redness or warmth. Ankles:? Normal pain-free range of motion without tenderness, swelling, increased warmth or erythema. Feet:? Normal pain-free range of motion with mild 1st MTP bony enlargement bilaterally.? There is hallux valgus deformity bilaterally but no tenderness, soft tissue swelling, increased warmth or erythema.? Results Reviewed Results Reviewed: Laboratory Tests 08/12/23 11:20 WBC 6.3 RBC 3.66 L Hgb 10.8 L Hct 32.7 L ESR 57 H Creatinine 0.69 Estimated GFR > 60 AST 15 ALT 17 C-Reactive Protein 0.40 Lab work from [place], May 2021: ESR 78, rheumatoid factor 38, hand x-ray showed mild degenerative disease. The left knee x-ray showed mild osteoarthritis. 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 Rheumatoid factor and CCP markedly positive. January,: Methotrexate started Code(s): M06.9 - Rheumatoid arthritis, unspecified Qualifiers: Rheumatoid arthritis location: multiple sites Rheumatoid factor presence: without rheumatoid factor Qualified Code(s): M06.09 - Rheumatoid arthritis without rheumatoid factor, multiple sites (5) Anemia, iron deficiency: Code(s): D50.9 - Iron deficiency anemia, unspecified Qualifiers: Iron deficiency anemia type: inadequate dietary iron intake Qualified Code(s): D50.8 - Other iron deficiency anemias Plan #+RF+CCP RA: The rheumatoid arthritis management can be improved from current treatment. The frequency of hand swelling and soreness and the consistently elevated ESR/CRP suggests that there is active disease. At this time I will increase the MTX to 8 pills QW and reassess for improvement. She will continue Folic acid 1 mg QD. #OA Multiple Joints. The knee pain I think is primarily due to longstanding osteoarthritis. She also has some findings of OA in the hips, more common on the right. That may be giving her some knee pain but she does not really have much in the way of hip pain. She can continue to use the Tylenol PRN. #Anemia,JOSIANE: Per patient she notified by the pharmacy of Ferrous Sulphate prescribed by her PCP. She will start to take those. She reports a long history of bouts of JOSIANE. 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 She does have some cytopenias so we will monitor that. It is likely because of JOSIANE. Labs are also ordered before the next visit in about 3 months. Patient knows to hold MTX for infections, fevers, surgeries and non-healing wounds. Orders: Orders Complete Blood Count Auto Diff Today M06.9 - Rheumatoid arthritis, unspecified, Z79.899 - Other equipment operator intermodal yard (current) drug therapy Comprehensive Met. Panel Today M06.9 - Rheumatoid arthritis, unspecified, Z79.899 - Other long-term (current) drug therapy C Reactive Protein Today M06.9 - Rheumatoid arthritis, unspecified, Z79.899 - Other equipment operator intermodal yard (current) drug therapy Erythrocyte Sedimentation Rate Today M06.9 - Rheumatoid arthritis, unspecified, Z79.899 - Other long-term (current) drug therapy Medications: Changed From methotrexate sodium 15 mg (6 x 2.5 mg) PO QWEEK 24 tabs 3RF NS M06.9 - Rheumatoid arthritis, unspecified, M79.643 - Pain in unspecified hand, M79.89 - Other specified soft tissue disorders To methotrexate sodium 20 mg (8 x 2.5 mg) PO QWEEK 32 tabs 3RF NS M06.9 - Rheumatoid arthritis, unspecified, M79.643 - Pain in unspecified hand, M79.89 - Other specified soft tissue disorders Coding Level of Care Code Est Pt Level 3 (92298) Diagnoses Primary osteoarthritis of right hip M16.11 Osteoarthritis type: primary intermodal 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
[2023-08-18 11:44] VITALS: BP 120/62; PULSE 71; TEMP 36.1; O2SAT 96; BMI 23.8
== END 2023-08-18 12:26 | disposition home or self-care (01) ==
PROVIDERS: PCP Internal Medicine; Visit Provider Nurse Practitioner Family
DX: M16.11 Unilateral primary osteoarthritis, right hip (principal); Z79.899 Other long term (current) drug therapy; M17.0 Bilateral primary osteoarthritis of knee; M06.09 Rheumatoid arthritis without rheumatoid factor, multiple sites; D50.8 Other iron deficiency anemias
CPT/HCPCS: 99213

== ENCOUNTER → 2023-08-18 11:36 | Outpatient (BNVA) | payer OTHER, SELFPAY | PROVIDERS: PCP Internal Medicine; Visit Provider Nurse Practitioner Family ==

== ENCOUNTER 2023-11-03 08:33 | Outpatient (AMB) | payer OTHER, SELFPAY ==
--- NOTE | 2023-11-03 08:21 | A.OFFPC_ITS ---
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 Went to [facility] ER on 11/01/23 for vomiting blood. Records not available on [facility] EMR Credit Card Control Clerk Required: No Allergies erythromycin base Allergy (Intermediate, Verified 11/03/23 08:22) Vomiting Seasonal Allergies Allergy (Intermediate, Verified 11/03/23 08:22) Runny Nose codeine [CODEINE] Allergy (Unknown, Verified 11/03/23 08:22) NAUSEA Medication List - Last Reconciled 11/03/23 by Kiah Sofia PA-C calcium carbonate-vitamin D3 500 mg-10 mcg (400 unit) (Calcium 500 With D) 1 tab PO BID cyanocobalamin (vitamin B-12) 500 mcg PO DAILY famotidine 20 mg PO BID folic acid 1 mg PO DAILY ibuprofen 200 mg PO Q6H PRN methotrexate sodium 20 mg (8 x 2.5 mg) PO QWEEK NS Tobacco use date assessed: 11/03/23 Fall risk assessment: No Falls in past year Last assessed Fall Risk: 11/03/23 Dental Screening Dental Screen Date: 11/03/23 Did you have a dental visit in the last 12 months?: Yes Did you have a dental problem in the last 6 months where you did not have access to dental care?: No Was dental information given to patient?: Patient has dentist 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 GI: She states she went to the [facility] ER on 10/31 after vomiting blood. She states that morning she vomited and noted black/tar like material. She states that made her nervous so she went to the ER. She states that weeks prior to that she had dark/black like stools. She states that at the ER they told her her labs looked normal. She states they told her the hgb was at 11. She does take iron daily. She takes famotidine daily to help with her baseline GERD. It does not help her nausea. She states that every day she wakes up nauseous for the last year. She states normally it goes away on it's own but on Tuesday it made her vomit. -She did see GI at [facility] in the fall a nd she states no testing was done. The sx she states were reported as a part of her IBS. -She cannot recall ever having an endosc opy. She thinks she is coming up to being due for her colonoscopy. -No abdominal pain or weight loss. No ni ght sweats. No fatigue, bruising or swollen lymph nodes. Heme/onc: She reports JOSIANE and being placed on iron this past year. She states the anemia was new. Musculoskeletal: Follows with rheumatology, Dr. Carrillo and is on methotrexate and folic acid which was started in 2021. Up-to-date with ophthalmology. She uses Tylenol as needed. Cannot tolerate NSAIDs with gi sx. Pulm: reports an ER visit where they told her she had COPD. No pfts. No wheezing. Does get sob for the last year or so. CV: bp today is 128/62. She does report chest pain intermittently over the last 2 years. Not usually brought on by exertion. Only lasts a few mins. No associated sx. Does not believe related to GERD. She does get sob with exertion at times. She states it is pretty stable and unrelated to the chest pain. Murmur noted on exam today and she does note that that has ever been looked at but has been heard in the past. She does get leg swelling by the end of the day and attributes this to arthritis. She did go to ED one time a couple years ago for cp and had ekg, labs, cxr which were all reassuring. cxr showed copd. former smoker no ldct. Mammogram: UTD, follows every year at [facility] Bone density: overdue, -reports osteopenia Colonoscopy: UTD, goes q 5 years Former Smoker: smoked 0.5-1 ppd x 50 years quit 5 years ago - has not had lung cancer screening. Father had lung ca. [facility] Medical History (Updated 11/03/23 @ 09:36 by Kiah Sofia PA-C) Anemia, iron deficiency Intermittent pain and swelling of hand Surgical History Hx of tonsillectomy Hx of eye surgery Hx of colonoscopy Hx of cataract extraction S/P fine needle aspiration S/P breast biopsy, right Family History Mother Anemia Breast cancer Hypertension Father Rheumatoid arthritis Lung cancer Hypertension Daughter Thyroid cancer Social History Household Members Other:: lives alone Housing: House Are you a primary rn coronary care unit to a significant other at home: No Do you presently have visiting nurse or other home services: No Alcohol intake: current Alcohol intake frequency: holidays/special occasions only Alcohol type: hard liquor Patient Tobacco Use Status: Former Tobacco user Quit Date: 2017 e-Cigarette/Vaping Use: Never Used service: No Current occupational status: retired 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 1. Little interest or pleasure in doing things: not at all 2. Feeling down, depressed, or hopeless: not at all 3. Trouble falling or staying asleep, or sleeping too much: several days 4. Feeling tired or having little energy: several days 5. Poor appetite or overeating: not at all 6. Feeling bad about yourself - or that you are a failure or have let yourself or your family down: not at all 7. Trouble concentrating on things, such as reading the newspaper or watching television: not at all 8. Moving or speaking so slowly that other people could have noticed. Or the opposite - being so fidgety or restless that you have been moving around a lot more than usual: not at all 9. Thoughts that you would be better off or of hurting yourself in some way: not at all Total score: 2 Depression Screening Interpretation: Negative Depression Screening Done: Yes 83324 - PHQ-9 Billing: Yes Source: Developed by Drs. Clarence Stacy, Preethi Lea, Phil Figueroa and colleagues, with an educational nga from [employer]. Thrive Questionnaire Date Thrive assessed: 11/03/23 I am a: Patient What is your living situation today?: I have a steady place to live Within the past 12 months, did the food you bought not last and you didn't have the money to get more?: Never true Within the past 12 months, did you worry whether your food would run out before you got money to buy more?: Never true Do you have trouble paying for medicines?: No Do you have trouble getting transportation to medical appointments?: No Do you have trouble paying your heating and electricity bill?: No Do you have trouble taking care of your child, family member or friend?: No Do you have trouble with day-to-day activities such as bathing, preparing meals, shopping, managing finances, etc.?: No Are you currently unemployed and looking for a job?: No Are you interested in more education?: Yes Please select the resources that you would like help with: Education Currently or been in a relationship where the following occur: no concerns reported THRIVE Score: 0 AUDIT C Alcohol Use Questionnaire (AUDIT-C) 1. How often do you have a drink containing alcohol?: Monthly or less 2. How many drinks containing alcohol do you have on a typical day when you are drinking?: 1 or 2 3. How often do you have six or more drinks on one occasion?: Never Total Score: 1 Score Reviewed/Action Taken: Yes LISA-7 AMB Questionnaire LISA-7 Date LISA - 7 assessed: 11/03/23 Feeling nervous, anxious, or on edge: 0 = Not at all Not being able to stop or control worryin = Not at all Worrying too much about different things: 0 = Not at all Trouble relaxin = Not at all Being so restless that it is hard to sit still: 1 = Several days Becoming easily annoyed or irritable: 1 = Several days Feeling afraid as if something awful might happen: 0 = Not at all Total LISA-7 score (0-4 normal; 5-9 mild; 10-14 moderate; 15-21 severe): 2 Source: Developed by Drs. Clarence Stacy, Preethi Lea, Phil Figueroa and colleagues, with an educational nga from [employer]. LISA-7 Assessment Billing LISA-7 Assessment Tool: LISA-7 Assessment 11188 Physical exam (Primary Care) Vital Signs: Last Vital Signs Temp 98.1 F 11/03/23 08:56 Pulse 72 11/03/23 08:56 Resp 14 11/03/23 08:56 BP 128/62 11/03/23 08:56 Pulse Ox 96 11/03/23 08:56 Oxygen Delivery Method Room Air 11/03/23 08:56 BMI result Body Mass Index 26.0 Tobacco/Smoking Status: Tobacco use Status Tobacco use date assessed 11/03/23 11/03/23 08:23 Patient Tobacco Use Status Former Tobacco user 11/03/23 08:23 e-Cigarette/Vaping Use Never Used 11/03/23 08:23 Depression Screening Interpretation: Negative Currently or been in a relationship where the following occur: no concerns reported Const Orientation/consciousness: patient oriented x3 HENMT Ears: hearing grossly normal bilaterally Neck Thyroid: Thyroid normal Lymphatic: no lymphadenopathy noted Resp Auscultation: clear to auscultation bilaterally Cardio Rate: regular rate Rhythm: regular rhythm Heart sounds: S1 normal heart sound present and S2 normal heart sound present GI Inspection: Yes normal to inspection Palpation (GI): Soft to palpation and Other GI palpation findings present (n ontender, no cva tenderness) Auscultation: normoactive bowel sounds Rectal Exam - Female: deferred Skin General skin exam: no rashes or lesions noted Neuro General: patient oriented x3, gait normal and no focal motor deficits Office Procedures EKG Details: EKG today in the office is normal sinus rhythm at a rate of 64 beats per nonspecific STT wave abnormalities. EKG interpreted by myself. [id number], Complete Results Reviewed Results Reviewed: Laboratory Tests 08/12/23 11:20 WBC 6.3 RBC 3.66 L Hgb 10.8 L Hct 32.7 L Plt Count 367 ESR 57 H Estimated GFR > 60 AST 15 ALT 17 Assessment and Plan Assessment & Plan (1) Anemia, iron deficiency: Code(s): D50.9 - Iron deficiency anemia, unspecified Qualifiers: Iron deficiency anemia type: inadequate dietary iron intake Qualified Code(s): D50.8 - Other iron deficiency anemias Plan: per labs here she has been anemic since at least 2021. Started iron fall of 2022. Reports UTD colonoscopy. Does also report rectal bleeding intemittently. -referral to GI. -will check labs today (2) Dark emesis: Code(s): K92.0 - Hematemesis Plan: reports offered admission to hospital 2 days ago (physician note not completed yet) but pt declined. reports labs were stable. -referral to [facility]. Does not like the idea of [facility]. She is an existing pt at [facility] and I encouraged her to call them and discuss possible double endoscopy. abdominal exam today is benign, eating and drinking well, vital wnl. will check labs (3) Black stool: Code(s): K92.1 - Melena Plan: last few stools normal. as above (4) MALIK (dyspnea on exertion): Code(s): R06.09 - Other forms of dyspnea Plan: cxr ordered ekg today NSR labs ordered nuclear stress test (arthritis) and echo ordered likely has copd from smoking and denies ever having pfts (reports methotrexate use starting in 2021 upon dx of RA). will order PFTs (5) Murmur: Code(s): R01.1 - Cardiac murmur, unspecified Plan: echo (6) Atypical chest pain: Code(s): R07.89 - Other chest pain Plan: as above, asymptomatic currently (7) Former smoker: Code(s): Z87.891 - Personal history of nicotine dependence Plan: has fam hx of lung ca referral to thoracic surgery for ldct Plan f/u in 2 - 3 weeks or sooner prn bone density ordered mammo ordered labs and as above Orders: Orders TSH reflex Free T4 Today D50.8 - Other iron deficiency anemias, K92.0 - H ematemesis, K92.1 - Melena IRON PROFILE Today D50.8 - Other iron deficiency anemias, K92.0 - Hematemesis, K92.1 - Melena Ferritin Today D50.8 - Other iron deficiency anemias, K92.0 - Hematemesis, K92.1 - Melena XR DEXA axial skeleton Today D50.8 - Other iron deficiency anemias, K92.0 - Hematemesis, K92.1 - Melena, Z78.0 - Asymptomatic menopausal state AMB EKG-In Office Today R01.1 - Cardiac murmur, unspecified, R06.09 - Other forms of dyspnea, R07.89 - Other chest pain, Z87.891 - Personal history of nicotine dependence Complete Blood Count Auto Diff Today D50.8 - Other iron deficiency anemias, K92.0 - Hematemesis, K92.1 - Melena Comprehensive [place]. Panel Fast Today D50.8 - Other iron deficiency anemias, K92.0 - Hematemesis, K92.1 - Melena Lipid Panel Today D50.8 - Other iron deficiency anemias, K92.0 - Hematemesis, K92.1 - Melena MM screening mammo BI Today D50.8 - Other iron deficiency anemias, K92.0 - Hematemesis, K92.1 - Melena, Z12.31 - Encounter for screening mammogram for malignant neoplasm of breast XR chest 2V Today R01.1 - Cardiac murmur, unspecified, R06.09 - Other forms of dyspnea, R07.89 - Other chest pain, Z87.891 - Personal history of nicotine dependence CA echo limited Today R01.1 - Cardiac murmur, unspecified, R06.09 - Other forms of dyspnea, R07.89 - Other chest pain, Z87.891 - Personal history of nicotine dependence NM cardiolite stress test Today M06.09 - Rheumatoid arthritis without rheumatoid factor, multiple sites, R06.09 - Other forms of dyspnea, R07.89 - Other chest pain PFT pulmonary function test Today M06.09 - Rheumatoid arthritis without rheumatoid factor, multiple sites, R06.09 - Other forms of dyspnea, Z87.891 - Personal history of nicotine dependence Referrals Gastroenterology Referral D50.8 - Other iron deficiency anemias, K92.0 - Hematemesis, K92.1 - Melena Thoracic/General Surgery Referral Z87.891 - Personal history of nicotine dependence Coding Level of Care Code New Pt Level 5 (18354) Complex EM visit Add On G2211 Diagnoses Iron deficiency anemia secondary to inadequate dietary iron intake D50.8 Iron deficiency anemia type: inadequate dietary iron intake Dark emesis K92.0 Black stool K92.1 MALIK (dyspnea on exertion) R06.09 Murmur R01.1 Atypical chest pain R07.89 Former smoker Z87.891 CPT Codes EKG - CPT: 03629-[id number], Complete ([id number]) Additional Codes LISA-7 Assessment Billing - LISA-7 Assessment Tool: LISA-7 Assessment 23836 ([id number])
[2023-11-03 08:56] VITALS: BP 128/62; PULSE 72; RESP 14; TEMP 36.7; O2SAT 96; BMI 26.0
== END 2023-11-03 09:53 | disposition home or self-care (01) ==
PROVIDERS: PCP Internal Medicine; Visit Provider Physician Assistant
DX: K92.0 Hematemesis (principal); R01.1 Cardiac murmur, unspecified; R07.89 Other chest pain; R06.09 Other forms of dyspnea; K92.1 Melena; D50.8 Other iron deficiency anemias; Z87.891 Personal history of nicotine dependence
CPT/HCPCS: 93000; 99205; G2211

== ENCOUNTER 2023-11-03 10:24 | Outpatient (REF) | payer OTHER, SELFPAY ==
[2023-11-03 11:18] LABS: MANUAL DIFF FLAG NO
[2023-11-03 11:32] LABS: Basophils Absolute Auto 0.1 X10*3/uL (0.0-0.2); Basophils Percent Auto 2.2 % (0-2); Eosinophils Absolute Auto 0.2 X10*3/uL (0.0-0.4); Eosinophils Percent Auto 3.9 % (0-4); Hematocrit 32.6 % (37.0-47.0); Imm Gran Abs Auto 0.01 X10*3/uL (0.00-0.03); Imm Gran Pct Auto 0.2 % (0.0-0.4); Lymphocytes Absolute Auto 1.3 X10*3/uL (1.2-4.9); Lymphocytes Percent Auto 24.1 % (20-40); Mean Corpuscular HGB Conc 33.7 g/dl (31.0-35.0); Mean Corpuscular Hemoglobin 30.6 pg (27.0-33.0); Mean Corpuscular Volume 90.6 fL (80.0-98.0); Mean Platelet Volume 9.3 fL (9.4-12.3); Monocytes Absolute Auto 0.4 X10*3/uL (0.1-1.2); Monocytes Percent Auto 7.2 % (2-11); Neutrophils Absolute Auto 3.4 x10*3/uL (2.0-8.3); Neutrophils Percent Auto 62.4 % (45-73); Platelet Count 376 X10*3/uL (160-400); Red Cell Distribution Width 13.6 % (11.0-16.0); White Blood Count 5.4 X10*3/uL (4.8-10.8)
[2023-11-03 12:05] LABS: Erythrocyte Sedimentation Rate 64 MM/HR (0-20)
[2023-11-03 12:23] LABS: Alanine Aminotransferase 16 U/L (0-31); Albumin Level 3.9 g/dL (3.5-5.0); Alkaline Phosphatase 122 U/L (39-117); Anion Gap 14 (12-20); Aspartate Amino Transferase 16 U/L (5-31); Bilirubin Total 0.5 mg/dL (0.0-1.0); Blood Urea Nitrogen 12 mg/dL (9-16); C Reactive Protein 1.06 mg/dL (< or = 0.50); Calcium 9.9 mg/dL (8.4-10.2); Carbon Dioxide 26 mmol/L (22-29); Chloride 105 mmol/L (96-108); Cholesterol 194 mg/dL (<200); Estimated Glomerular Filt Rate > 60; Glucose Fasting 87 mg/dL (60-99); Glucose Random 86 mg/dL (60-115); HDL Cholesterol 33 mg/dL (>40); Iron 100 mcg/dL (30-160); LDL Cholesterol Calculated 138 mg/dL (<100); Percent Iron Saturation 36 % (15-50); Potassium 3.9 mmol/L (3.3-5.1); Sodium 141 mmol/L (135-145); Total Iron Binding Capacity 275 mcg/dL (228-428); Total Protein 7.5 g/dL (6.5-8.0); Triglycerides 119 mg/dL (<150); Unsaturated Iron Binding 175 ug/dL
[2023-11-03 12:27] LABS: Ferritin 79 ng/mL (10-250)
== END 2023-11-03 10:25 | disposition home or self-care (01) ==
LOC: HO.WFDLDS 10:24
PROVIDERS: Referring Provider Nurse Practitioner Family; Visit Provider Physician Assistant
DX: M06.9 Rheumatoid arthritis, unspecified (principal); D50.8 Other iron deficiency anemias; K92.0 Hematemesis; K92.1 Melena; Z79.899 Other long term (current) drug therapy
CPT/HCPCS: 36415; 80053; 80061; 82728; 83540; 84443; 85025; 85652; 86140

== ENCOUNTER 2023-11-18 10:42 | Outpatient (AMB) | payer OTHER, SELFPAY ==
--- NOTE | 2023-11-18 10:46 | MHC.OFFVIS ---
Vital Signs 11/18/23 10:51 Height 5 ft 2 in Weight 143 lb 1.28 oz BMI 26.2 BP 128/62 Blood Pressure Location Rt brachial Position Sitting Pulse 76 Pulse Source Pulse Oximeter Pulse Oximetry (%) 98 Oxygen Delivery Method Room Air Intake Visit Reasons: RA/Increase MTX Intake Note: Patient last seen 08/18/23 by Gerardo, presents today for follow up and test results. Has not received/started injection would like to discuss further. 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 Hayward 73-year-old female returns for evaluation of her rheumatoid arthritis. She remains on methotrexate 20 mg weekly, folic acid 1 mg daily, acetaminophen 650 mg 2 or 3 times a day if needed for pain. In general the peripheral joints are doing okay but she continues with intermittent swelling and soreness to her hands and feet and now her shoulders are being more painful. She she also does have some pain in the knees particularly with longer periods of standing or walking. On those days she does take more acetaminophen. She denies any no side effects with the medication. There is intermittent lower abdominal crampy pain and she sees GI and was recently prescribed Bentyl and this has also increased with the increased dose of MTX. She did get notify of the approval for the Hyrimoz and will call for delivery. 08/18/2023 Ms. Hayward 73-year-old female returns for evaluation of her rheumatoid arthritis. She remains on methotrexate 15 mg weekly, folic acid 1 mg daily, acetaminophen 650 mg 2 or 3 times a day if needed for pain. In general the peripheral joints are doing okay but she continues with intermittent swelling and soreness to her hands and feet. She she also does have some pain in the knees particularly with longer periods of standing or walking. On those days she does take more acetaminophen. She denies any no side effects with the medication. There is intermittent lower abdominal crampy pain and she sees GI and was recently prescribed Bentyl. [facility] Medical History (Updated 11/18/23 @ 11:25 by Alicia Carrillo, AERIAL CROP DUSTER-) Screening examination for infectious disease Anemia, iron deficiency Intermittent pain and swelling of hand Surgical History Hx of tonsillectomy Hx of eye surgery Hx of colonoscopy Hx of cataract extraction S/P fine needle aspiration S/P breast biopsy, right Family History Mother Anemia Breast cancer Hypertension Father Rheumatoid arthritis Lung cancer Hypertension Daughter Thyroid cancer Social History Household Members Other:: lives alone Housing: House Are you a primary career technical supervisor to a significant other at home: No Do you presently have visiting nurse or other home services: No 75 years or older and lives alone: No Alcohol intake: current Alcohol intake frequency: holidays/special occasions only Alcohol type: hard liquor Patient Tobacco Use Status: Former Tobacco user e-Cigarette/Vaping Use: Never Used service: No Current occupational status: retired 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 Regular rhythm, S1-S2 heard, no murmurs, rubs or gallops. LUNG:? Clear to percussion and auscultation EXTREMITIES: No edema, no calf tenderness, normal peripheral pulses. JOINT EXAM:?? Cervical Spine:? Mild discomfort with lateral flexion at 10 degrees of rotation at 45 degrees.? Some cervical muscle tenderness. Thoracic Spine:.? No scoliosis.? No tenderness on palpation. Lumbar Spine:.? Alignment normal.? Full range of motion without pain, no tenderness. Chest Wall:.? No tenderness, swelling, increased warmth or erythema. Hands:.? Right:? There is mild soft tissue swelling at the 3rd MCP with some tenderness.? There is bony enlargement without tenderness at the thumb IP and but tenderness at 2nd PIP joints..? There is no thenar atrophy, flexor tendon triggering, or sensory loss.? Left:? There is swelling in the 1st MCP joint and is mildly tender.? There is some minimal bony enlargement at the thumb IP joint without tenderness.? No thenar atrophy, sensory loss or flexor tendon triggering.? Wrists: Right: No pain with flexion extension at 75 degrees with some slight dorsal tenderness.? There does seem to be some thickening on the volar aspect.? No redness or warmth.? Left: Pain-free range of motion to 75 degrees flexion or extension with some slight volar thickening and mild tenderness today.? No redness or warmth.? Negative Phalen's and Tinel signs. Elbows: Normal pain-free range of motion without tenderness, swelling, increased warmth or erythema. Shoulders:?? Left: Slight pain with extremes of motion with some minimal anterior tenderness.? No abductor weakness or adenopathy .? Right:? Full range of motion without pain. No tenderness, weakness, swelling, increased warmth or erythema. Hips:? Right:? She has limitation of internal and external rotation.? There is no apparent hyperextension possible.? Attempts to push these ranges of motion cause some groin and buttock pains.? normal pain free range of motion..? Left:? Full range of motion without pain. Hip bursa:.? No tenderness. Knees: Right:? Mild patellofemoral crepitus with pain at the extremes of full extension or flexion beyond 90 degrees.? There is mild medial tenderness without effusion, tenderness, swelling, increased warmth or erythema.? Left:? Mild pain with extremes of flexion or extension.? There is moderate patellofemoral crepitus and mild medial tenderness with no effusion, redness or warmth. Ankles:? Normal pain-free range of motion without tenderness, swelling, increased warmth or erythema. Feet:? Normal pain-free range of motion with mild 1st MTP bony enlargement bilaterally.? There is hallux valgus deformity bilaterally but no tenderness, soft tissue swelling, increased warmth or erythema.? Results Reviewed Results Reviewed: more elevated ESR and CRP Assessment & Plan Assessment & Plan (1) Osteoarthritis of right hip: Code(s): M16.11 - Unilateral primary osteoarthritis, right hip Category: Medical Qualifiers: Osteoarthritis type: primary Qualified Code(s): M16.11 - Unilateral primary osteoarthritis, right hip (2) alf current use of immunosuppressive drug: Code(s): Z79.899 - Other concrete spreader (current) drug therapy Category: Medical (3) Osteoarthritis of knees, bilateral: Code(s): M17.0 - Bilateral primary osteoarthritis of knee Category: Medical Qualifiers: Osteoarthritis type: primary Qualified Code(s): M17.0 - Bilateral primary osteoarthritis of knee (4) Rheumatoid arthritis: Comment: Onset May 2021. Rheumatoid factor and CCP markedly positive. January,: Methotrexate started Code(s): M06.9 - Rheumatoid arthritis, unspecified Category: Medical Qualifiers: Rheumatoid arthritis location: multiple sites Rheumatoid factor presence: without rheumatoid factor Qualified Code(s): M06.09 - Rheumatoid arthritis without rheumatoid factor, multiple sites (5) Anemia, iron deficiency: Code(s): D50.9 - Iron deficiency anemia, unspecified Category: Medical Qualifiers: Iron deficiency anemia type: inadequate dietary iron intake Qualified Code(s): D50.8 - Other iron deficiency anemias Plan #+RF+CCP RA: The rheumatoid arthritis management can be improved from current treatment. The frequency of hand swelling and soreness and the consistently elevated ESR/CRP suggests that there is active disease. We had increased the MTX to 8 pills QW but no improvement and she has more abdominal cramping. She will continue Folic acid 1 mg QD. Will start Hyrimoz 40 mg Q2W and we demonstrated the use of the pen today and patient verbalized understanding. #OA Multiple Joints. The knee pain I think is primarily due to longstanding osteoarthritis but there is certainly some active RA with warmth today. She also has some findings of OA in the hips, more common on the right. That may be giving her some knee pain but she does not really have much in the way of hip pain. She can continue to use the Tylenol PRN. #Anemia,JOSIANE: Per patient she notified by the pharmacy of Ferrous Sulphate prescribed by her PCP. She has start to take those. She reports a long history of bouts of JOSIANE. It may also be that the uncontrolled RA is contributing so we will see if this improves when she starts the HYRIMOZ. #Residential Use: Liver enzymes are within good range to continue MTX. She does have some cytopenias so we will monitor that. It is likely because of JOSIANE. Labs are also ordered before the next visit in about 3 months. Patient knows to hold medications for infections, fevers, surgeries and non-healing wounds. Patient informed to do Hep and TB labs before starting Hyrimoz f/u 8 weeks to reassess Hyrimoz 30 minutes spent reviewing chart, teaching and discussing medications, evaluating patient and documenting. Orders: Orders Erythrocyte Sedimentation Rate 8 Weeks M06.09 - Rheumatoid arthritis without rheumatoid factor, multiple sites, Z79.899 - Other longterm (current) drug therapy Complete Blood Count Auto Diff 8 Weeks M06.09 - Rheumatoid arthritis without rheumatoid factor, multiple sites, Z79.899 - Other longterm (current) drug therapy Comprehensive Met. Panel 8 Weeks M06.09 - Rheumatoid arthritis without rheumatoid factor, multiple sites, Z79.899 - Other longterm (current) drug therapy C Reactive Protein 8 Weeks M06.09 - Rheumatoid arthritis without rheumatoid factor, multiple sites, Z79.899 - Other longterm (current) drug therapy T Spot TB Today Z11.9 - Encounter for screening for infectious and parasitic diseases, unspecified Hepatitis A,B,C Profile Today Z11.9 - Encounter for screening for infectious and parasitic diseases, unspecified Coding Level of Care Code Est Pt Level 4 (49028) Complex EM visit Add On G2211 Diagnoses Primary osteoarthritis of right hip M16.11 Osteoarthritis type: primary alf current use of 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
[2023-11-18 10:51] VITALS: BP 128/62; PULSE 76; O2SAT 98; BMI 26.2
== END 2023-11-18 11:19 | disposition home or self-care (01) ==
PROVIDERS: PCP Physician Assistant; Visit Provider Nurse Practitioner Family
DX: M16.11 Unilateral primary osteoarthritis, right hip (principal); Z79.899 Other long term (current) drug therapy; M17.0 Bilateral primary osteoarthritis of knee; M06.09 Rheumatoid arthritis without rheumatoid factor, multiple sites; D50.8 Other iron deficiency anemias
CPT/HCPCS: 99214; G2211

== ENCOUNTER → 2023-11-18 10:42 | Outpatient (BNVA) | payer OTHER, SELFPAY | PROVIDERS: PCP Physician Assistant; Visit Provider Nurse Practitioner Family ==

== ENCOUNTER 2023-11-21 08:10 | Outpatient (REF) | payer OTHER, SELFPAY ==
[2023-11-21 11:27] LABS: MANUAL DIFF FLAG NO
[2023-11-21 11:31] LABS: Basophils Absolute Auto 0.1 X10*3/uL (0.0-0.2); Basophils Percent Auto 1.7 % (0-2); Eosinophils Absolute Auto 0.2 X10*3/uL (0.0-0.4); Eosinophils Percent Auto 3.8 % (0-4); Hematocrit 33.1 % (37.0-47.0); Hemoglobin 10.8 g/dl (12.0-16.0); Imm Gran Abs Auto 0.02 X10*3/uL (0.00-0.03); Imm Gran Pct Auto 0.3 % (0.0-0.4); Lymphocytes Absolute Auto 1.1 X10*3/uL (1.2-4.9); Mean Corpuscular HGB Conc 32.6 g/dl (31.0-35.0); Mean Corpuscular Hemoglobin 30.3 pg (27.0-33.0); Mean Platelet Volume 9.2 fL (9.4-12.3); Monocytes Absolute Auto 0.5 X10*3/uL (0.1-1.2); Neutrophils Absolute Auto 3.8 x10*3/uL (2.0-8.3); Neutrophils Percent Auto 66.2 % (45-73); Platelet Count 371 X10*3/uL (160-400); Red Blood Count 3.56 X10*6/uL (4.20-5.50); Red Cell Distribution Width 13.8 % (11.0-16.0); White Blood Count 5.8 X10*3/uL (4.8-10.8)
[2023-11-21 11:46] LABS: Alanine Aminotransferase 16 U/L (0-31); Albumin Level 3.9 g/dL (3.5-5.0); Alkaline Phosphatase 121 U/L (39-117); Anion Gap 12 (12-20); Aspartate Amino Transferase 19 U/L (5-31); Bilirubin Total 0.4 mg/dL (0.0-1.0); Blood Urea Nitrogen 15 mg/dL (9-16); Calcium 9.3 mg/dL (8.4-10.2); Carbon Dioxide 28 mmol/L (22-29); Chloride 105 mmol/L (96-108); Estimated Glomerular Filt Rate > 60; Glucose Random 93 mg/dL (60-115); Potassium 3.9 mmol/L (3.3-5.1); Sodium 141 mmol/L (135-145); Total Protein 7.5 g/dL (6.5-8.0)
[2023-11-21 11:58] LABS: Erythrocyte Sedimentation Rate 62 MM/HR (0-20)
[2023-11-22 03:58] LABS: HBc Num1 0.09 S/CO (0.00-0.79); HBsAGNum1 0.25 S/CO (0.00-0.99); Hepatitis A Antibody IgM 0.11 Index (0-0.79); Hepatitis B Core Antibody Nonreactive (Nonreactive); Hepatitis B Surface Antigen Negative (Negative); ~HepC Num1 0.09 S/CO (0.00-0.79); ~Hepatitis A Antibody IgM Nonreactive (Nonreactive); ~Hepatitis B Surface Antibody NONREACTIVE (Nonreactive); ~Hepatitis C Antibody Nonreactive (Nonreactive)
[2023-11-24 01:53] LABS: TS Negative Control Passed; TS Panel A 0; TS Panel B 0; TS Positive Control Passed; TSpotTB Negative (Negative)
== END 2023-11-21 08:11 | disposition home or self-care (01) ==
LOC: HO.WFDLDS 08:10
PROVIDERS: Visit Provider Nurse Practitioner Family
DX: Z11.9 Encounter for screening for infectious and parasitic diseases, unspecified (principal); M06.09 Rheumatoid arthritis without rheumatoid factor, multiple sites; Z79.899 Other long term (current) drug therapy
CPT/HCPCS: 36415; 80053; 85025; 85652; 86140; 86481; 86704; 86706; 86709; 86803; 87340

== ENCOUNTER 2023-11-30 08:41 | Outpatient (AMB) | payer OTHER, SELFPAY ==
--- NOTE | 2023-11-30 08:47 | MHC.PC.OV ---
Vital Signs 11/30/23 08:48 11/30/23 09:17 Height 5 ft 2 in Weight 141 lb 4 oz BMI 25.8 BP 142/72 H 122/68 Blood Pressure Location Rt brachial Rt brachial Position Sitting Sitting Pulse 75 Pulse Source Pulse Oximeter Pulse Oximetry (%) 95 Oxygen Delivery Method Room Air Intake Visit Reasons: chest pain, labs, GI sx Allergies erythromycin base Allergy (Intermediate, Verified 11/30/23 08:48) Vomiting Seasonal Allergies Allergy (Intermediate, Verified 11/30/23 08:48) Runny Nose codeine [CODEINE] Allergy (Unknown, Verified 11/30/23 08:48) NAUSEA Tobacco use date assessed: 11/03/23 Fall risk assessment: No Falls in past year Last assessed Fall Risk: 11/30/23 Dental Screening Dental Screen Date: 11/03/23 HPI chest pain, labs, GI sx HPI Details Patient is a 73-year-old female with a significant past medical history of rheumatoid arthritis, iron deficiency anemia, osteoarthritis, GERD, diverticulosis, IBS and history of basal cell carcinoma presenting today for a follow up. Overall feeling well and at baseline. GI: At our last visit she was referred to GI for an endoscopy (she had a couple episodes of vomiting blood and nausea). She states that she saw [facility] last [place] and was told the endoscopy was normal. She has an appointment in February with [facility] for her IBS sx. She states she is excited for the second opinion. Heme/onc: She reports JOSIANE and being placed on iron this past year. She states the anemia was new. Musculoskeletal: Follows with rheumatology, Dr. Carrillo and is on methotrexate and folic acid which was started in 2021. Discussed switching treatment plan to methotrexate not being effective enough. She cannot afford the other treatments. Up-to-date with ophthalmology. She uses Tylenol as needed. Cannot tolerate NSAIDs with gi sx. Pulm: reports an ER visit where they told her she had COPD. PFTs and ldct ordered, not yet booked. CV: bp today is 128/62. Stress test is booked for 12/25 and echo is scheduled 12/15. She does report chest pain intermittently over the last 2 years. Not usually brought on by exertion. Only lasts a few mins. No associated sx. Does not believe related to GERD. She does get sob with exertion at times. She states it is pretty stable and unrelated to the chest pain. Murmur noted on exam today and she does note that that has ever been looked at but has been heard in the past. She does get leg swelling by the end of the day and attributes this to arthritis. She did go to ED one time a couple years ago for cp and had ekg, labs, cxr which were all reassuring. cxr showed copd. former smoker no ldct. Mammogram: UTD, follows every year at [place] Bone density: overdue, -reports osteopenia- booked for 12/14 Colonoscopy: UTD, goes q 5 years Former Smoker: smoked 0.5-1 ppd x 50 years quit 5 years ago - has not had lung cancer screening. Father had lung ca. [facility] Medical History (Updated 11/30/23 @ 09:27 by Kiah Sofia PA-C) Screening examination for infectious disease Anemia, iron deficiency Intermittent pain and swelling of hand Surgical History Hx of tonsillectomy Hx of eye surgery Hx of colonoscopy Hx of cataract extraction S/P fine needle aspiration S/P breast biopsy, right Family History Mother Anemia Breast cancer Hypertension Father Rheumatoid arthritis Lung cancer Hypertension Daughter Thyroid cancer Social History Household Members Other:: lives alone Housing: House Are you a primary child care lead teacher to a significant other at home: No Do you presently have visiting nurse or other home services: No 75 years or older and lives alone: No Alcohol intake: current Alcohol intake frequency: holidays/special occasions only Alcohol type: hard liquor Patient Tobacco Use Status: Former Tobacco user e-Cigarette/Vaping Use: Never Used service: No Current occupational status: retired 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 Depression Screening Interpretation: Negative Depression Screening Done: Yes Source: Developed by Drs. Clarence Stacy, PreethiPhil Cassidy and colleagues, with an educational nga from [employer]. Thrive Questionnaire Date Thrive assessed: 11/03/23 Currently or been in a relationship where the following occur: no concerns reported THRIVE Score: 0 LISA-7 AMB Questionnaire LISA-7 Date LISA - 7 assessed: 11/03/23 Source: Developed by Drs. Clarence Stacy, Phil Hay and colleagues, with an educational nga from [employer]. Physical exam (Primary Care) Vital Signs: Last Vital Signs Pulse 75 11/30/23 08:48 BP 142/72 H 11/30/23 08:48 Pulse Ox 95 11/30/23 08:48 Oxygen Delivery Method Room Air 11/30/23 08:48 BMI result Body Mass Index 25.8 Tobacco/Smoking Status: Tobacco use Status Tobacco use date assessed 11/03/23 11/30/23 08:52 Patient Tobacco Use Status Former Tobacco user 11/30/23 08:52 e-Cigarette/Vaping Use Never Used 11/30/23 08:52 Depression Screening Interpretation: Negative Thrive Assessment: Date of Thrive Assessment Date Thrive assessed 11/03/23 11/30/23 08:52 Currently or been in a relationship where the following occur: no concerns reported Const Orientation/consciousness: patient oriented x3 HENMT Ears: hearing grossly normal bilaterally Neck Thyroid: Thyroid normal Lymphatic: no lymphadenopathy noted Resp Auscultation: clear to auscultation bilaterally Cardio Rate: regular rate Rhythm: regular rhythm Heart sounds: S1 normal heart sound present and S2 normal heart sound present GI Inspection: Yes normal to inspection Palpation (GI): Soft to palpation and Other GI palpation findings present (nontender, no cva tenderness) Auscultation: normoactive bowel sounds Rectal Exam - Female: deferred Skin General skin exam: no rashes or lesions noted Neuro General: patient oriented x3, gait normal and no focal motor deficits Results Reviewed Results Reviewed: Laboratory Tests 04/12/23 08/12/23 11/03/23 12:17 11:20 10:26 WBC RBC 3.71 L 3.66 L 3.60 L Hgb 10.8 L 10.8 L 11.0 L Hct 32.9 L 32.7 L 32.6 L Plt Count Sodium Potassium Chloride Carbon Dioxide Anion Gap BUN Creatinine Estimated GFR Random Glucose AST ALT 11/21/23 08:12 WBC 5.8 RBC 3.56 L Hgb 10.8 L Hct 33.1 L Plt Count 371 Sodium 141 Potassium 3.9 Chloride 105 Carbon Dioxide 28 Anion Gap 12 BUN 15 Creatinine 0.63 Estimated GFR > 60 Random Glucose 93 AST 19 ALT 16 Assessment and Plan Assessment & Plan (1) Atypical chest pain: Code(s): R07.89 - Other chest pain Plan: We will follow up pending cardiac testing. Sooner if anything changes. Discussed warning signs of chest pain that would require emergent medical treatment. (2) MALIK (dyspnea on exertion): Code(s): R06.09 - Other forms of dyspnea Plan: As above. Orders for a chest x-ray, PFTs and low-dose CT scan screening were ordered. (3) IBS (irritable bowel syndrome): Code(s): K58.9 - Irritable bowel syndrome without diarrhea Qualifiers: Irritable bowel syndrome type: with diarrhea Qualified Code(s): K58.0 - Irritable bowel syndrome with diarrhea Plan: Has upcoming appointment with GI. Overdue for colonoscopy. (4) Anemia, iron deficiency: Code(s): D50.9 - Iron deficiency anemia, unspecified Qualifiers: Iron deficiency anemia type: inadequate dietary iron intake Qualified Code(s): D50.8 - Other iron deficiency anemias Plan: As above. Continue with iron. Overdue colonoscopy. She has been scheduled with GI. Did have an endoscopy last week which she reports as normal. Coding Level of Care Code Est Pt Level 4 (34167) Diagnoses Atypical chest pain R07.89 MALIK (dyspnea on exertion) R06.09 Irritable bowel syndrome with diarrhea K58.0 Irritable bowel syndrome type: with diarrhea Iron deficiency anemia secondary to inadequate dietary iron intake D50.8 Iron deficiency anemia type: inadequate dietary iron intake
[2023-11-30 08:48] VITALS: BP 142/72; PULSE 75; O2SAT 95; BMI 25.8
[2023-11-30 09:17] VITALS: BP 122/68
== END 2023-11-30 09:25 | disposition home or self-care (01) ==
PROVIDERS: PCP Physician Assistant; Visit Provider Physician Assistant
DX: R07.89 Other chest pain (principal); R06.09 Other forms of dyspnea; K58.0 Irritable bowel syndrome with diarrhea; D50.8 Other iron deficiency anemias
CPT/HCPCS: 99214

== ENCOUNTER 2023-12-14 10:43 | Outpatient (REF) | payer OTHER, SELFPAY ==
--- NOTE | ~2023-12-14 | MM_ITS ---
EXAMINATION: BONE DENSITOMETRY CLINICAL INDICATION: Asymptomatic menopausal state. COMPARISON: This is the patient's baseline examination. TECHNIQUE: Using a Virtual Web DXA System (software version: 13.1) manufactured by [employer], dual-energy x-ray absorptiometry was performed of the lumbar spine and left hip. The images are of good technical quality. Summary results are attached. FINDINGS: LEFT FEMUR, NECK: BMD 0.862 g/cm2, Z-score 0.5, T-score -1.3, osteopenia. LEFT FEMUR, TOTAL: BMD 0.899 g/cm2, Z-score 0.7, T-score -0.9, normal. AP SPINE L1-L4: BMD 0.892 g/cm2, Z-score -0.7, T-score -2.4, osteopenia. IDENTIFIED RISK FACTORS: Height loss, menopause, rheumatoid arthritis. HISTORY OF FRACTURE: None listed. MEDICATIONS: Calcium, vitamin D. MM/XR DEXA axial skeleton IMPRESSION: 1. DIAGNOSIS: Osteopenia based on the lowest T-score value of -2.4 in the lumbar spine applying World Health Organization criteria. 2. 10-YEAR FRACTURE RISK PREDICTION, FRAX: Major osteoporotic fracture (clinical spine, forearm, hip or shoulder) 12.9%. Hip fracture 2.1%. 3. Treatment Recommendations: NOF guidelines recommend consideration for treatment in postmenopausal women and men age 50 and older presenting with the following: -A hip or vertebral (clinical or morphometric) fracture. -T-score less than or equal to -2.5 at the femoral neck or spine after appropriate evaluation to exclude secondary causes. -Low bone mass at the hip or spine and a 10-year fracture probability by FRAX of greater than or equal to 3% for hip fracture or greater than or equal to 20% for major osteoporotic fracture based on the [place] adapted WHO algorithm. 4. Other Recommendations: All treatment decisions require clinical judgment and consideration of individual patient factors, including patient preferences, comorbidities, previous drug use, risk factors not captured in the FRAX model (e.g. frailty, falls, vitamin D deficiency, increased bone turnover, interval significant decline in bone density) and possible under or overestimation of fracture risk by FRAX. Additional medical evaluation for secondary cause of low bone mineral density may be appropriate. FUTURE SCAN RECOMMENDATION: People with diagnosed cases of osteoporosis or at high risk for fracture should have regular bone mineral density tests. For patients eligible for Medicare, routine testing is allowed once every 2 years. The testing frequency can be increased to one year for patients who have rapidly progressing disease, those who are receiving or discontinuing medical therapy to restore bone mass, or have additional risk factors.
== END 2023-12-14 10:44 | disposition home or self-care (01) ==
LOC: HO.MAMMO 10:43
PROVIDERS: PCP Physician Assistant; Visit Provider Physician Assistant
DX: Z13.820 Encounter for screening for osteoporosis (principal); Z78.0 Asymptomatic menopausal state
CPT/HCPCS: 77080

== ENCOUNTER → 2023-12-26 07:47 | Outpatient (REF) | payer OTHER, SELFPAY ==
--- NOTE | ~2023-12-26 | NM_ITS ---
Exercise Myocardial perfusion study Indication: Shortness of breath to evaluate for myocardial ischemia Technique: The patient was brought in for an exercise perfusion study on 12/26/2023. Patient performed exercise as per Blas protocol and was injected 25 mCi of sestamibi was given intravenously one target HR was achieved. Images were obtained using the SPECT gamma camera interlaced with the gating device. Images were obtained in supine position. Resting perfusion study was performed on 12/27/2023. Patient was administered 25 mCi of sestamibi intravenously at rest. Images were then obtained in supine position. Images obtained with and without CT attenuation. Total DLP 55 mGy-cm Images were processed with the software and compared side to side in short axis, horizontal long axis and vertical long axis views. Findings: The stress perfusion study showed non attenuated images minimal to mildly reduced distal anterior/anteroseptal wall of the LV myocardium as well as subtle reduced uptake in the inferolateral wall of the LV myocardium. . Attenuation corrected images show normal uptake of. The gated study shows normal LV systolic function with calculated LVEF of 73%. LV cavity is normal in size. The gated study shows normal systolic wall thickening and contraction of all segments. There is no obvious transient ischemic dilation. Resting study shows non attenuated images show improved uptake in the inferolateral wall of the LV myocardium.. Gating at rest reveals normal systolic wall motion with ejection fraction at 71%. The findings are consistent with possible mild intensity small area of distal anteroseptal as reversible defect suggestive of ischemia suggesting ischemia. NM/NM cardiolite stress test Impression: 1. Small area intensity distal anterior ischemia and equivocal inferolateral ischemia 2. Gated LVEF is 73% 3. Transient ischemic dilatation not present Stress EKG is positive for ischemia
--- NOTE | 2023-12-26 07:50 | CA_ITS ---
Acquisition Time: 2023-12-26 07:53:08 Total Exercise Time: 00:05:00 Test Indications: CP, SOB Medications: SEE H Protocol: INDIO Max HR: 137 BPM 92% of Pred: 148 BPM Max BP: 160/068 mmHG Max Work Load: 4.6 METS Exercise stress test exercise 5 mins of Indio stage 1 protocol achieving 93% MPHR, with moderate SOB, no chest discofmort, with isolated PACs and PVCs, short run of atrial tach, with normotensive is response to exericse, with horizontal depressions in leads 2, 3, aVF, V3-V6. Breathing returned to baseline. Nuclear images pending. Test reviewed with Dr. Cannon. Referred By: Kiah Sofia Overread By: Leslie Joseph
== END ==
LOC: HO.CARD 07:47
PROVIDERS: PCP Physician Assistant; Visit Provider Physician Assistant
DX: R07.89 Other chest pain (principal); R06.09 Other forms of dyspnea; R01.1 Cardiac murmur, unspecified; M06.09 Rheumatoid arthritis without rheumatoid factor, multiple sites
CPT/HCPCS: 78452; 93017; A9500

== ENCOUNTER → 2023-12-26 07:50 | Outpatient (BNV) | payer OTHER, SELFPAY | PROVIDERS: PCP Physician Assistant; Visit Provider Nurse Practitioner | DX: R06.02 Shortness of breath (principal) | CPT/HCPCS: 78452; 93016; 93018 ==

== ENCOUNTER 2024-01-19 08:37 | Outpatient (AMB) | payer OTHER, SELFPAY ==
--- NOTE | 2024-01-19 08:40 | A.OFFVIS_ITS ---
Vital Signs 01/19/24 08:45 Height 5 ft 2 in Weight 136 lb 3.931 oz BMI 24.9 BP 116/60 Blood Pressure Location Lt brachial Position Sitting Pulse 68 Pulse Source Pulse Oximeter Pulse Oximetry (%) 98 Oxygen Delivery Method Room Air Intake Visit Reasons: RA/Hyrimoz Start/CM Intake Note: Patient presents for RA/Hyrimoz start. Allergies erythromycin base Allergy (Intermediate, Verified 01/19/24 08:45) Vomiting Seasonal Allergies Allergy (Intermediate, Verified 01/19/24 08:45) Runny Nose codeine [CODEINE] Allergy (Unknown, Verified 01/19/24 08:45) NAUSEA Medication List - Last Reconciled 01/19/24 by Tonia Salomon MD calcium carbonate-vitamin D3 500 mg-10 mcg (400 unit) (Calcium 500 With D) 1 tab PO BID cyanocobalamin (vitamin B-12) 500 mcg PO DAILY famotidine 20 mg PO BID folic acid 1 mg PO DAILY ibuprofen 200 mg PO Q6H PRN methotrexate sodium 20 mg (8 x 2.5 mg) PO QWEEK NS HPI Comments Details: This is a 73-year-old female with seropositive RA who presents for follow-up. She states that she continues to have flare-ups affecting different joints including her shoulders, hands, wrists, hips, knees. She states that most recently she has been having frequent right hip pain, she could not sleep last night, due to the pain. She has pain in the inside of her right hip as well as the eye side of the hip. She takes Tylenol with little relief. She continues to take methotrexate 20 mg weekly plus folic acid 1 mg daily. She did not feel much improvement when methotrexate dose was increased from 15 to 20 mg weekly She has history of periodontal disease and gets deep cleaning regularly. Recent stress test was positive [facility] Medical History (Updated 01/19/24 @ 09:49 by Tonia Salomon MD) Periodontal disease Anemia, iron deficiency Intermittent pain and swelling of hand Surgical History Hx of tonsillectomy Hx of eye surgery Hx of colonoscopy Hx of cataract extraction S/P fine needle aspiration S/P breast biopsy, right Family History Mother Anemia Breast cancer Hypertension Father Rheumatoid arthritis Lung cancer Hypertension Daughter Thyroid cancer Social History Household Members Other:: lives alone Housing: House Are you a primary geriatric personal care aide to a significant other at home: No Do you presently have visiting nurse or other home services: No 75 years or older and lives alone: No Alcohol intake: current Alcohol intake frequency: holidays/special occasions only Alcohol type: hard liquor Patient Tobacco Use Status: Former Tobacco user e-Cigarette/Vaping Use: Never Used service: No Current occupational status: 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 Current occupational exposures/hazards: No Cognitive needs: No Hearing needs: Yes (some hearing loss) Vision needs: Yes (glasses) Review of Systems Musc Reports abnormal gait, Reports arthralgias, Reports joint swelling, Reports limited range of motion and Reports stiffness Neuro Reports abnormal gait Physical Exam Vital Signs: Last Vital Signs Pulse 68 01/19/24 08:45 BP 116/60 01/19/24 08:45 Pulse Ox 98 01/19/24 08:45 Oxygen Delivery Method Room Air 01/19/24 08:45 BMI result Body Mass Index 24.9 Const General: cooperative, healthy appearing and comfortable Nutritional Appearance: average body habitus Orientation/consciousness: patient oriented x3 Limitations: no limitations HEENT Head: Yes normocephalic and Yes atraumatic Mouth: moist mucous membranes Resp Effort & Inspection: normal respiratory effort and able to speak in complete sentences Skin General skin exam: no rashes or lesions noted Neuro General: patient oriented x3 Extrem Other: Right 5th MCP swelling but no tenderness Range of motion of hands, wrists, elbows and shoulders without pain today No knee swelling or tenderness today Significant bilateral knee crepitus Ankle swelling or tenderness today Negative MTP squeeze test Right trochanteric bursa area tenderness Patient limping on exam today Results Reviewed Results Reviewed: X-RAY EXAM OF HAND, 3+ VIEWS Exam Date: 05/26/2021 11:05 AM Ordering Diagnosis: Joint pain in both hands ? BILATERAL HANDS, 3 VIEWS EACH ? HISTORY: Bilateral hand pain. ? PRIOR: Right hand 04/10/2020. ? FINDINGS: ? Right hand: There is mild degenerative spurring of the IP joint; 2nd, 3rd, 4th and 5th DIP joints.. ? Left hand: There is mild degenerative spurring of the 2nd, 3rd, 4th and 5th DIP joints.. ? There is no acute fracture, malalignment, joint effusion, soft tissue abnormality, or radiopaque foreign body in either hand. ? IMPRESSION IMPRESSION: Mild degenerative changes of both hands as described. BONE DENSITOMETRY CLINICAL INDICATION: Asymptomatic menopausal state. COMPARISON: This is the patient's baseline examination. TECHNIQUE: Using a [employer] DXA System (software version: 13.1) manufactured by [employer], dual-energy x-ray absorptiometry was performed of the lumbar spine and left hip. The images are of good technical quality. Summary results are attached. FINDINGS: LEFT FEMUR, NECK: BMD 0.862 g/cm2, Z-score 0.5, T-score -1.3, osteopenia. LEFT FEMUR, TOTAL: BMD 0.899 g/cm2, Z-score 0.7, T-score -0.9, normal. AP SPINE L1-L4: BMD 0.892 g/cm2, Z-score -0.7, T-score -2.4, osteopenia. IDENTIFIED RISK FACTORS: Height loss, menopause, rheumatoid arthritis. HISTORY OF FRACTURE: None listed. MEDICATIONS: Calcium, vitamin D. MM/XR DEXA axial skeleton IMPRESSION: 1. DIAGNOSIS: Osteopenia based on the lowest T-score value of -2.4 in the lumbar spine applying World Health Organization criteria. 2. 10-YEAR FRACTURE RISK PREDICTION, FRAX: Major osteoporotic fracture (clinical spine, forearm, hip or shoulder) 12.9%. Hip fracture 2.1%. ? Assessment & Plan Assessment & Plan (1) Rheumatoid arthritis: Comment: Onset May 2021 +++RF+++CCP January,: Methotrexate started Code(s): M06.9 - Rheumatoid arthritis, unspecified Category: Medical Qualifiers: Rheumatoid arthritis location: multiple sites Rheumatoid factor presence: without rheumatoid factor Qualified Code(s): M06.09 - Rheumatoid arthritis without rheumatoid factor, multiple sites Plan: This is a 73-year-old female with seropositive rheumatoid arthritis who presents for follow-up. Her 1st visit with me. Patient continues to have numerous flare-ups. I think her condition is not well controlled. Last visit adalimumab was pursued but patient has co-pay was too high and she did not qualify for Copay assistance. She has lost some weight since last visit. She has a reduced appetite. I had a long conversation with patient today regarding her diagnosis and the im portance of optimizing disease control. Discussed complications of rheumatoid arthritis including joint pains stiffness, rupture joints, progressive osteoarthritis as well as extra-articular manifestations such as cardiovascular events and interstitial lung disease. This is relevant because patient recently had a positive stress test I think at this time last option would be to optimize her methotrexate. 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 Advised patient take take vitamin- D. Check a DEXA scan in 12/2023 (4) Osteoarthritis of right hip: Code(s): M16.11 - Unilateral primary osteoarthritis, right hip Category: Medical Qualifiers: Osteoarthritis type: primary Qualified Code(s): M16.11 - Unilateral primary osteoarthritis, right hip Plan: I think her symptoms today are due to right hip osteoarthritis as well as right hip bursitis. I suggested bursitis steroid injection today. Patient refused. I think patient should be evaluated by pain management and/or Orthopedics. She also declined at this time. Plan This is patient's 1st visit with me. 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
[2024-01-19 08:45] VITALS: BP 116/60; PULSE 68; O2SAT 98; BMI 24.9
== END 2024-01-19 09:15 | disposition home or self-care (01) ==
PROVIDERS: PCP Physician Assistant; Visit Provider Student in an Organized Health Care Education/Training Program
DX: M06.09 Rheumatoid arthritis without rheumatoid factor, multiple sites (principal); Z79.899 Other long term (current) drug therapy; M85.80 Other specified disorders of bone density and structure, unspecified site; M16.11 Unilateral primary osteoarthritis, right hip
CPT/HCPCS: 99215

== ENCOUNTER → 2024-01-19 08:37 | Outpatient (BNVA) | payer OTHER, SELFPAY | PROVIDERS: PCP Physician Assistant; Visit Provider Student in an Organized Health Care Education/Training Program ==

== ENCOUNTER 2024-01-31 14:02 | Outpatient (AMB) | payer OTHER, SELFPAY ==
[2024-01-31 14:02] VITALS: BP 122/52; PULSE 80; BMI 25.5
--- NOTE | 2024-01-31 14:02 | A.OFFVIS_ITS ---
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/Abn results function study Licensed Therapist Required: No Accompanied by: Self / Same As Patient Allergies erythromycin base Allergy (Intermediate, Verified 01/19/24 08:45) Vomiting Seasonal Allergies Allergy (Intermediate, Verified 01/19/24 08:45) Runny Nose codeine [CODEINE] Allergy (Unknown, Verified 01/19/24 08:45) NAUSEA Medication List - Last Reconciled 01/31/24 by Logan Cannon MD calcium carbonate-vitamin D3 500 mg-10 mcg (400 unit) (Calcium 500 With D) 1 tab PO BID famotidine 20 mg PO BID folic acid 1 mg PO DAILY ibuprofen 200 mg PO Q6H PRN insulin syringe-needle U-100 (BD Insulin Syringe) Use once weekly with methotrexate methotrexate sodium (PF) 25 mg subcut QWEEK prednisone Take 3 tabs daily for 1 week, 2 tabs daily for 1 week, 1 tab daily for 1 week then stop HPI Comments Details: Johanne is here for consultation regarding chest pain and abnormal stress test. Per PCP note, she has had chest pain for the last 2 years. Nonexertional pain. When I questioned her, she initially stated that it was not with exertion but later reported that it was indeed more so with physical exertion. Hence not entirely clear which way it is. Otherwise, no history of any coronary disease or myocardial infarction or cardiomyopathy. History of rheumatoid arthritis on immunosuppressive agents. FORMERLY [facility], [facility] Medical History (Updated 01/31/24 @ 14:33 by Logan Cannon MD) Periodontal disease Anemia, iron deficiency Intermittent pain and swelling of hand Surgical History Hx of tonsillectomy Hx of eye surgery Hx of colonoscopy Hx of cataract extraction S/P fine needle aspiration S/P breast biopsy, right Family History Mother Anemia Breast cancer Hypertension Father Rheumatoid arthritis Lung cancer Hypertension Daughter Thyroid cancer Social History Household Members Other:: lives alone Housing: House Are you a primary resident care spec to a significant other at home: No Do you presently have visiting nurse or other home services: No 75 years or older and lives alone: No Alcohol intake: current Alcohol intake frequency: holidays/special occasions only Alcohol type: hard liquor Patient Tobacco Use Status: Former Tobacco user e-Cigarette/Vaping Use: Never Used service: No Current occupational status: retired 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 Current occupational exposures/hazards: No Cognitive needs: No Hearing needs: Yes (some hearing loss) Vision needs: Yes (glasses) Review of Systems Const Denies chills, Denies daytime sleepiness, Denies fatigue, Denies fever(s), Denies poor appetite, Denies snoring, Denies stops breathing during sleep, Denies weakness, Denies weight gain and Denies weight loss Eyes Denies loss of vision ENT Denies dizziness and Denies hearing loss Card Denies chest pain, Denies irregular heart rhythm, Denies claudication, Denies leg edema, Denies lightheadedness, Reports palpitations, Denies dyspnea on exertion and Denies orthopnea Resp Denies cough, Denies excessive phlegm production, Denies dyspnea on exertion, Denies snoring and Denies wheezing GI Denies abdominal pain, Denies hematochezia, Denies change in bowel habits, Denies nausea and Denies vomiting Denies urinary frequency and Denies dysuria Musc Denies arthralgias, Denies muscle weakness, Denies numbness and Denies other Skin/Breast Denies nail changes and Denies rash Neuro Denies Abnormal speech present, Denies dizziness, Denies loss of vision, Denies memory loss, Denies numbness and Denies weakness Psych Denies depression and Denies memory loss Endo Denies fatigue and Reports palpitations Cesar/Lymph Denies easy bruising Aller/Immun Denies wheezing Physical Exam Vital Signs: Last Vital Signs Pulse 80 01/31/24 14:02 BP 122/52 L 01/31/24 14:02 BMI result Body Mass Index 25.5 Const General: comfortable and no acute distress Orientation/consciousness: patient oriented x3 HEENT Other: Unremarkable Head: Yes normal to inspection Neck Neck: Yes normal visual inspection Chest Chest palpation & inspection: normal inspection of the chest Resp Auscultation: clear to auscultation bilaterally Cardio Palpation: normal PMI Heart sounds: S1 normal heart sound present, S2 normal heart sound present, no gallops, Murmur heart sound present systolic III/ and at the right sternal border and no rubs GI Palpation (GI): Soft to palpation Back/Spine/Pelvis Other: unremarkable Skin General skin exam: no rashes or lesions noted Neuro General: patient oriented x3 Speech: No Abnormal speech present Extrem General: Yes normal to inspection Psych Mental Status: mental status grossly normal Assessment & Plan Assessment & Plan (1) Precordial chest pain: Code(s): R07.2 - Precordial pain Category: Medical (2) Abnormal stress test: Code(s): R94.39 - Abnormal result of other cardiovascular function study Category: Medical Plan Baseline EKG-underlying sinus rhythm at 64/Min; possible left atrial enlargement; no significant ST-T changes and otherwise unremarkable. In the exercise stress test, she was able to do up to 4.6 Mets on Blas protocol. Reached target heart rate and had some shortness of breath but no chest discomfort. There was evidence of ST depression-seen during stage I of exercise as well as during recovery. The ST depression does persist several minutes into recovery. In the perfusion component, thought to be possible ischemia in the distal anteroseptal/inferolateral areas. Overall, chest pain with varying descriptions and above stress test findings. On clinical exam, she has murmur of aortic sclerosis/stenosis. Obtain echocardiogram. Following this, possible diagnostic catheterization but to be decided. Plan discussed with patient and she agrees. Orders: Orders CA echo transthoracic complete Today I35.0 - Nonrheumatic aortic (valve) stenosis Coding Level of Care Code New Pt Level 4 (96905) Diagnoses Precordial chest pain R07.2 Abnormal stress test R94.39
== END 2024-01-31 14:29 | disposition home or self-care (01) ==
PROVIDERS: PCP Physician Assistant; Visit Provider Internal Medicine
DX: R07.2 Precordial pain (principal); R94.39 Abnormal result of other cardiovascular function study
CPT/HCPCS: 99204

== ENCOUNTER → 2024-01-31 14:02 | Outpatient (BNVA) | payer OTHER, SELFPAY | PROVIDERS: PCP Physician Assistant; Visit Provider Internal Medicine ==

== ENCOUNTER → 2024-02-07 09:56 | Outpatient (BNVA) | payer OTHER, SELFPAY | PROVIDERS: PCP Physician Assistant; Visit Provider Student in an Organized Health Care Education/Training Program ==

== ENCOUNTER → 2024-02-13 09:54 | Outpatient (BNVA) | payer OTHER, SELFPAY | PROVIDERS: PCP Physician Assistant; Visit Provider Student in an Organized Health Care Education/Training Program ==

== ENCOUNTER → 2024-03-02 10:54 | Outpatient (REF) | payer OTHER, SELFPAY ==
--- NOTE | 2024-03-02 10:56 | CA_ITS ---
Transthoracic Echocardiogram Patient (Last, First, Middle): Johanne Gomes, Gender: Female Date of : 1950 Age: 73 Procedure Date: 03/02/2024 Procedure Type: Transthoracic Echocardiogram Location: OP Height: 162.56 cm Weight: 63.5 kg BSA: 1.68 m2 Heart Rate: bpm BP: 120 / 70 mmHg Hand Spring Repairer: TO Referring MD: Logan Cannon MD Symptoms: I35.0 - Nonrheumatic aortic (valve) stenosis Study Quality: Adequate ECG Rhythm: Sinus Conclusions: - The left ventricular systolic function is normal. The calculated ejection fraction is 59% by biplane method. - There is moderate aortic valve stenosis. Findings Left Ventricle Normal left ventricular cavity size. The left ventricular systolic function is normal. The calculated ejection fraction is 59% by biplane method. There is no evidence of regional wall motion abnormalities. Evidence suggests grade I (mild) diastolic dysfunction. There is mild septal asymmetric hypertrophy. Right Ventricle Normal right ventricular cavity size and systolic function. Atria Both atria are normal in size. Aortic Valve There is severe calcification of the aortic valve. There is moderate aortic valve stenosis. The peak aortic velocity is 3.09 m/s with a calculated peak gradient of 38 mmHg. The mean gradient is 19 mmHg. The aortic valve area is 1.24 cm2. There is mild aortic valve regurgitation. Mitral Valve There is moderate mitral annular calcification. There is mild mitral valve regurgitation. There is no mitral valve stenosis. Pulmonic Valve The pulmonic valve is likely normal. Tricuspid Valve Normal tricuspid valve structure. There is mild tricuspid valve regurgitation. There is no evidence of pulmonary hypertension. Great Vessels The asc aorta is normal in size. Venous The inferior vena cava is mildly dilated and collapses greater than 50% with inspiration. Pericardium/Pleural There is no evidence of pericardial effusion. Prior Study Comparison No prior study available for comparison. Measurements 2D Linear Measurements IVSd: 1.23 0.6-0.9/0.6-1.0 cm LVIDd: 3.58 3.9-5.3/4.2-5.9 cm LVIDd Index: 2.13 2.4-3.2/2.2-3.1 cm/m2 LVIDs: 2.44 2.0-3.6 cm LVPWd: 0.96 0.7-1.1 cm LA Diam: 3.40 2.7-3.8/3.0-4.0 cm LAIDs Index: 2.02 1.5-2.3 cm/m2 LV Mass: 152.07 67-162/88-224 g LV Mass Index: 90.52 43-95/49-115 g/m2 LVOT Diam: 2.00 3.0+(-)1.3 cm 2D Systolic Function EF 4C: 57.30 >55% EF 2C: 61.90 >55% EF BiP: 58.90 >55% Mitral Valve MV VTI: 0.40 MV Pk Jose Raul: 1.45 MV Mn Jose Raul: 0.76 MV Pk Grad: 8.00 MV Mn Grad: 3.00 MV Pk E: 0.99 MV PK A: 1.25 MV Decel Time: 252.00 E/A: 0.80 E'Lateral: 5.00 E'Medial: 5.22 E/E' Med: 19.00 E/E' Lat: 19.80 PHT: 74.00 MVA PHT: 2.97 MVA Continuity: 2.43 Decel [place]: 3.92 Aortic Valve AoV Pk Jose Raul: 3.09 AoV Mn Jose Raul: 1.98 AoV VTI: 0.78 AoV Pk Grad: 38.00 Aov Mn Grad: 19.00 SHIRA Cont.VTI: 1.24 AI Pk Jose Raul: 3.43 AI [place]: 1.71 LVOT LVOT Pk Jose Raul: 1.27 LVOT Mn Jose Raul: 0.86 LVOT VTI: 0.31 LVOT Pk Grad: 6.00 LVOT Mn Grad: 3.00 LVOT Diam: 2.00 LVOT Area: 3.14 Diastolic Function MV Pk E: 0.99 MV Pk A: 1.25 E/A: 0.80 E'Medial: 5.22 E/E' Med: 19.00 E' Laterial: 5.00 E/E' Lat: 19.80 Right Ventricle TAPSE (mm): 24.20 TVS' Jose Raul: 11.50 Tricuspid Valve TR Pk Jose Raul: 2.32 TR Pk Grad: 22.00 RA Press: 8.00 RVSP: 30.00 Great Vessels Aorta Sinus of Valsalva: 3.07 2.0-3.5 cm Ao Asc: 3.10 2.1-3.4 cm Updated in Other Vendor System with Status of Final Logan Cannon MD electronically signed on 03/03/2024 1:24:14 PM with status of Final
== END ==
LOC: HO.CARD 10:54
PROVIDERS: PCP Physician Assistant; Visit Provider Internal Medicine
DX: R01.1 Cardiac murmur, unspecified (principal); I35.0 Nonrheumatic aortic (valve) stenosis; R06.02 Shortness of breath; R94.39 Abnormal result of other cardiovascular function study
CPT/HCPCS: 93306

== ENCOUNTER → 2024-03-02 10:56 | Outpatient (BNV) | payer OTHER, SELFPAY | PROVIDERS: PCP Physician Assistant; Visit Provider Internal Medicine | DX: I35.2 Nonrheumatic aortic (valve) stenosis with insufficiency (principal); I34.0 Nonrheumatic mitral (valve) insufficiency; I36.1 Nonrheumatic tricuspid (valve) insufficiency; I42.2 Other hypertrophic cardiomyopathy | CPT/HCPCS: 93306 ==

== ENCOUNTER 2024-03-21 11:24 | Outpatient (REF) | payer OTHER, SELFPAY ==
[2024-03-21 14:14] LABS: MANUAL DIFF FLAG NO
[2024-03-21 14:27] LABS: Basophils Absolute Auto 0.1 X10*3/uL (0.0-0.2); Basophils Percent Auto 1.5 % (0-2); Eosinophils Absolute Auto 0.2 X10*3/uL (0.0-0.4); Eosinophils Percent Auto 2.9 % (0-4); Hematocrit 34.3 % (37.0-47.0); Hemoglobin 11.5 g/dl (12.0-16.0); Imm Gran Abs Auto 0.02 X10*3/uL (0.00-0.03); Imm Gran Pct Auto 0.3 % (0.0-0.4); Lymphocytes Absolute Auto 1.4 X10*3/uL (1.2-4.9); Lymphocytes Percent Auto 20.7 % (20-40); Mean Corpuscular HGB Conc 33.5 g/dl (31.0-35.0); Mean Corpuscular Hemoglobin 30.3 pg (27.0-33.0); Mean Corpuscular Volume 90.3 fL (80.0-98.0); Monocytes Absolute Auto 0.5 X10*3/uL (0.1-1.2); Monocytes Percent Auto 7.1 % (2-11); Neutrophils Absolute Auto 4.4 x10*3/uL (2.0-8.3); Neutrophils Percent Auto 67.5 % (45-73); Platelet Count 320 X10*3/uL (160-400); Red Cell Distribution Width 13.5 % (11.0-16.0); White Blood Count 6.5 X10*3/uL (4.8-10.8)
[2024-03-21 14:44] LABS: Alanine Aminotransferase 21 U/L (0-31); Albumin Level 4.1 g/dL (3.5-5.0); Alkaline Phosphatase 116 U/L (39-117); Anion Gap 10 (12-20); Aspartate Amino Transferase 24 U/L (5-31); Bilirubin Total 0.5 mg/dL (0.0-1.0); Blood Urea Nitrogen 12 mg/dL (9-16); Carbon Dioxide 28 mmol/L (22-29); Chloride 104 mmol/L (96-108); Estimated Glomerular Filt Rate > 60; Glucose Random 93 mg/dL (60-115); Potassium 4.4 mmol/L (3.3-5.1); Sodium 138 mmol/L (135-145); Total Protein 7.3 g/dL (6.5-8.0)
[2024-03-21 15:09] LABS: Erythrocyte Sedimentation Rate 46 MM/HR (0-20)
== END 2024-03-21 11:25 | disposition home or self-care (01) ==
LOC: HO.WFDLDS 11:24
PROVIDERS: Visit Provider Student in an Organized Health Care Education/Training Program
DX: Z79.899 Other long term (current) drug therapy (principal)
CPT/HCPCS: 36415; 80053; 85025; 85652; 86140

== ENCOUNTER 2024-03-30 10:53 | Outpatient (AMB) | payer OTHER, SELFPAY ==
--- NOTE | 2024-03-30 10:57 | MHC.OFFVIS ---
Vital Signs 03/30/24 11:01 Height 5 ft 2 in Weight 141 lb 15.643 oz BMI 26.0 BP 122/70 Blood Pressure Location Rt brachial Position Sitting Pulse 66 Pulse Source Pulse Oximeter Pulse Oximetry (%) 98 Oxygen Delivery Method Room Air Intake Visit Reasons: RA/LM Intake Note: Patient presents for RA. Allergies erythromycin base Allergy (Intermediate, Verified 03/30/24 10:59) Vomiting Seasonal Allergies Allergy (Intermediate, Verified 03/30/24 10:59) Runny Nose codeine [CODEINE] Allergy (Unknown, Verified 03/30/24 10:59) NAUSEA Medication List - Last Reconciled 03/30/24 by Tonia Salomon MD calcium carbonate-vitamin D3 500 mg-10 mcg (400 unit) (Calcium 500 With D) 1 tab PO BID famotidine 20 mg PO BID folic acid 1 mg PO DAILY ibuprofen 200 mg PO Q6H PRN insulin syringe-needle U-100 (BD Insulin Syringe) Use once weekly with methotrexate methotrexate sodium (PF) 25 mg subcut QWEEK HPI Comments Details: This is a 73-year-old female with seropositive RA who presents for follow-up. She has been taking methotrexate 25 mg subcutaneously once weekly since last visit. She has noticed improvement. She states that the flare-ups are now very few and far in between and lasts less than 1 day. She states that she gets some GI upset and nausea 1 or 2 days after methotrexate injection. This happened the 1st couple of doses. She does not feel it as much anymore Her main complaint is bilateral knee pain, worse on the left from knee osteoarthritis. She denies any cough or shortness of breath. [facility] Medical History Personal history of nicotine dependence Periodontal disease Anemia, iron deficiency Intermittent pain and swelling of hand Surgical History Hx of tonsillectomy Hx of eye surgery Hx of colonoscopy Hx of cataract extraction S/P breast biopsy, right Family History Mother Anemia Breast cancer Hypertension Father Rheumatoid arthritis Lung cancer Hypertension Daughter Thyroid cancer Social History Household Members Other:: lives alone Housing: House Are you a primary floor care technician to a significant other at home: No Do you presently have visiting nurse or other home services: No 75 years or older and lives alone: No Alcohol intake: current Alcohol intake frequency: holidays/special occasions only Alcohol type: hard liquor Patient Tobacco Use Status: Former Tobacco user e-Cigarette/Vaping Use: Never Used service: No Current occupational status: retired 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 Current occupational exposures/hazards: No Cognitive needs: No Hearing needs: Yes (some hearing loss) Vision needs: Yes (glasses) Review of Systems Musc Reports arthralgias, Reports limited range of motion and Reports stiffness Physical Exam Vital Signs: Last Vital Signs Pulse 66 03/30/24 11:01 BP 122/70 03/30/24 11:01 Pulse Ox 98 03/30/24 11:01 Oxygen Delivery Method Room Air 03/30/24 11:01 BMI result Body Mass Index 26.0 Const General: cooperative, healthy appearing and comfortable Nutritional Appearance: average body habitus Orientation/consciousness: patient oriented x3 Limitations: no limitations HEENT Head: Yes normocephalic and Yes atraumatic Mouth: moist mucous membranes Resp Effort & Inspection: normal respiratory effort and able to speak in complete sentences Skin General skin exam: no rashes or lesions noted Neuro General: patient oriented x3 Extrem Other: no active synovitis both hands, wrists Normal Range of motion of hands, wrists, elbows and shoulders without pain today Significant bilateral knee crepitus Left knee pain with full flexion and extension, small Rosales's cyst No Ankle swelling or tenderness today Negative MTP squeeze test Bilateral hammertoes Results Reviewed Results Reviewed: X-RAY EXAM OF HAND, 3+ VIEWS Exam Date: 05/26/2021 11:05 AM Ordering Diagnosis: Joint pain in both hands ? BILATERAL HANDS, 3 VIEWS EACH ? HISTORY: Bilateral hand pain. ? PRIOR: Right hand 04/10/2020. ? FINDINGS: ? Right hand: There is mild degenerative spurring of the IP joint; 2nd, 3rd, 4th and 5th DIP joints.. ? Left hand: There is mild degenerative spurring of the 2nd, 3rd, 4th and 5th DIP joints.. ? There is no acute fracture, malalignment, joint effusion, soft tissue abnormality, or radiopaque foreign body in either hand. ? IMPRESSION IMPRESSION: Mild degenerative changes of both hands as described. BONE DENSITOMETRY CLINICAL INDICATION: Asymptomatic menopausal state. COMPARISON: This is the patient's baseline examination. TECHNIQUE: Using a [employer] DXA System (software version: 13.1) manufactured by [employer], dual-energy x-ray absorptiometry was performed of the lumbar spine and left hip. The images are of good technical quality. Summary results are attached. FINDINGS: LEFT FEMUR, NECK: BMD 0.862 g/cm2, Z-score 0.5, T-score -1.3, osteopenia. LEFT FEMUR, TOTAL: BMD 0.899 g/cm2, Z-score 0.7, T-score -0.9, normal. AP SPINE L1-L4: BMD 0.892 g/cm2, Z-score -0.7, T-score -2.4, osteopenia. IDENTIFIED RISK FACTORS: Height loss, menopause, rheumatoid arthritis. HISTORY OF FRACTURE: None listed. MEDICATIONS: Calcium, vitamin D. MM/XR DEXA axial skeleton IMPRESSION: 1. DIAGNOSIS: Osteopenia based on the lowest T-score value of -2.4 in the lumbar spine applying World Health Organization criteria. 2. 10-YEAR FRACTURE RISK PREDICTION, FRAX: Major osteoporotic fracture (clinical spine, forearm, hip or shoulder) 12.9%. Hip fracture 2.1%. ? Assessment & Plan Assessment & Plan (1) Rheumatoid arthritis: Comment: Onset May 2021 +++RF+++CCP January,: Methotrexate started. changed to SQ 01/2024 Code(s): M06.9 - Rheumatoid arthritis, unspecified Category: Medical Qualifiers: Rheumatoid arthritis location: multiple sites Rheumatoid factor presence: without rheumatoid factor Qualified Code(s): M06.09 - Rheumatoid arthritis without rheumatoid factor, multiple sites Plan: This is a 73-year-old female with seropositive rheumatoid arthritis who presents for follow-up. She is on methotrexate 25 mg subcutaneously weekly. Doing well overall with active synovitis on exam. She does get intermittent methotrexate flu symptoms but it looks like she is tolerating it. Discussed with patient that we can potentially add Robitussin weekly with methotrexate which may help her symptoms. At this time she does not feel the need to add anything. Continue current meds Labs before next visit in 4 months (2) medical terminologist current use of immunosuppressive drug: Code(s): Z79.899 - Other halfway (current) drug therapy Category: Medical Plan: Monitor safety labs for methotrexate (3) Osteopenia: Code(s): M85.80 - Other specified disorders of bone density and structure, unspecified site Category: Medical Plan: T-score is -2.4 at the L-spine, panic range. Advised patient take take vitamin-D. Vitamin-D level before next visit. Check a DEXA scan in 12/2025 (4) Bilateral primary osteoarthritis of knee: Code(s): M17.0 - Bilateral primary osteoarthritis of knee Category: Medical Plan I spent 25 minutes reviewing patient's chart, evaluating patient, ordering diagnostic workup, counseling patient and documenting in the chart Orders: Orders Complete Blood Count Auto Diff 4 Months M06.09 - Rheumatoid arthritis without rheumatoid factor, multiple sites, Z79.899 - Other medical terminologist (current) drug therapy C Reactive Protein 4 Months M06.09 - Rheumatoid arthritis without rheumatoid factor, multiple sites, Z79.899 - Other halfway (current) drug therapy Erythrocyte Sedimentation Rate 4 Months M06.09 - Rheumatoid arthritis without rheumatoid factor, multiple sites, Z79.899 - Other halfway (current) drug therapy Vitamin D 25-OH (D2 and D3) 4 Months E55.9 - Vitamin D deficiency, unspecified Comprehensive Met. Panel 4 Months M06.09 - Rheumatoid arthritis without rheumatoid factor, multiple sites, Z79.899 - Other medical terminologist (current) drug therapy Medications: Refilled insulin syringe-needle U-100 (BD Insulin Syringe) Use once weekly with methotrexate 10 ea 2RF methotrexate sodium (PF) Inject 25 mg once weekly (1.0 mL) discard the rest of the medication in the vial 25 mg subcut QWEEK 8 mL 2RF Coding Level of Care Code Est Pt Level 4 (05402) Complex EM visit Add On G2211 Diagnoses Rheumatoid arthritis of multiple sites with negative rheumatoid factor M06.09 Rheumatoid arthritis location: multiple sites Rheumatoid factor presence: without rheumatoid factor medical terminologist current use of immunosuppressive drug Z79.899 Osteopenia M85.80 Bilateral primary osteoarthritis of knee M17.0
[2024-03-30 11:01] VITALS: BP 122/70; PULSE 66; O2SAT 98; BMI 26.0
== END 2024-03-30 11:31 | disposition home or self-care (01) ==
PROVIDERS: PCP Physician Assistant; Visit Provider Student in an Organized Health Care Education/Training Program
DX: M06.09 Rheumatoid arthritis without rheumatoid factor, multiple sites (principal); Z79.899 Other long term (current) drug therapy; M85.80 Other specified disorders of bone density and structure, unspecified site; M17.0 Bilateral primary osteoarthritis of knee
CPT/HCPCS: 99214

== ENCOUNTER → 2024-03-30 10:53 | Outpatient (BNVA) | payer OTHER, SELFPAY | PROVIDERS: PCP Physician Assistant; Visit Provider Student in an Organized Health Care Education/Training Program ==

== ENCOUNTER 2024-04-02 15:07 | Outpatient (AMB) | payer OTHER, SELFPAY ==
--- NOTE | 2024-04-02 15:09 | MHC.OFFVIS ---
Vital Signs 04/02/24 15:10 Height 5 ft 2 in Weight 140 lb 10.479 oz BMI 25.7 BP 138/50 L Blood Pressure Location Lt brachial Position Sitting Pulse 80 Pulse Source Pulse Oximeter Intake Visit Reasons: f/up echo 2 mth B[employer] Labor Required: No Accompanied by: Self / Same As Patient Allergies erythromycin base Allergy (Intermediate, Verified 03/30/24 10:59) Vomiting Seasonal Allergies Allergy (Intermediate, Verified 03/30/24 10:59) Runny Nose codeine [CODEINE] Allergy (Unknown, Verified 03/30/24 10:59) NAUSEA Medication List - Last Reconciled 04/02/24 by Logan Cannon MD aspirin (Adult Aspirin Regimen) 81 mg PO DAILY calcium carbonate-vitamin D3 500 mg-10 mcg (400 unit) (Calcium 500 With D) 1 tab PO BID famotidine 20 mg PO BID folic acid 1 mg PO DAILY ibuprofen 200 mg PO Q6H PRN insulin syringe-needle U-100 (BD Insulin Syringe) Use once weekly with methotrexate methotrexate sodium (PF) 25 mg subcut QWEEK HPI Comments Details: Johanne returns for follow-up. Recently seen in consultation regarding abnormal stress test. Per PCP note, she has had chest pain for the last 2 years. Varying description from patient with both nonexertional as well as exertional chest pains. No documented coronary history. History of rheumatoid arthritis on immunosuppressive agents. [facility] Medical History (Updated 04/02/24 @ 15:43 by Logan Cannon MD) Osteopenia IBS (irritable bowel syndrome) Personal history of nicotine dependence Periodontal disease Anemia, iron deficiency Intermittent pain and swelling of hand Surgical History History of basal cell carcinoma (BCC) excision History of colonoscopy History of eye surgery History of cataract surgery History of tonsillectomy S/P breast biopsy, right Family History Mother Anemia Breast cancer Hypertension Father Rheumatoid arthritis Lung cancer Hypertension Daughter Thyroid cancer Social History Household Members Other:: lives alone Housing: House Are you a primary senior resident care director to a significant other at home: No Do you presently have visiting nurse or other home services: No 75 years or older and lives alone: No Alcohol intake: current Alcohol intake frequency: holidays/special occasions only Alcohol type: hard liquor Patient Tobacco Use Status: Former Tobacco user e-Cigarette/Vaping Use: Never Used service: No Current occupational status: retired 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 Current occupational exposures/hazards: No Cognitive needs: No Hearing needs: Yes (some hearing loss) Vision needs: Yes (glasses) Review of Systems Const Denies chills, Denies fatigue, Denies fever(s), Denies weight gain and Denies weight loss ENT Denies dizziness Card Denies chest pain, Denies leg edema, Denies lightheadedness, Denies palpitations, Denies dyspnea on exertion, Denies orthopnea and Denies other Resp Denies cough and Denies dyspnea on exertion GI Denies hematochezia and Denies change in stool character Musc Denies abnormal gait, Denies muscle weakness, Denies numbness, Denies radiating pain into limb and Denies tingling Neuro Denies Abnormal speech present, Denies abnormal gait, Denies dizziness, Denies numbness and Denies tingling Endo Denies fatigue and Denies palpitations Physical Exam Vital Signs: Last Vital Signs Pulse 80 04/02/24 15:10 BP 138/50 L 04/02/24 15:10 BMI result Body Mass Index 25.7 Const General: comfortable and no acute distress Orientation/consciousness: patient oriented x3 HEENT Other: Unremarkable Head: Yes normal to inspection Neck Neck: Yes normal visual inspection Chest Chest palpation & inspection: normal inspection of the chest Resp Auscultation: clear to auscultation bilaterally Cardio Palpation: normal PMI Heart sounds: S1 normal heart sound present, S2 normal heart sound present, no gallops, Murmur heart sound present systolic III/ and at the right sternal border and no rubs GI Palpation (GI): Soft to palpation Back/Spine/Pelvis Other: unremarkable Skin General skin exam: no rashes or lesions noted Neuro General: patient oriented x3 Speech: No Abnormal speech present Extrem General: Yes normal to inspection Psych Mental Status: mental status grossly normal Assessment & Plan Assessment & Plan (1) Precordial chest pain: Code(s): R07.2 - Precordial pain Category: Medical (2) Abnormal stress test: Code(s): R94.39 - Abnormal result of other cardiovascular function study Category: Medical (3) Nonrheumatic aortic (valve) stenosis: Code(s): I35.0 - Nonrheumatic aortic (valve) stenosis Category: Medical Plan Cardiac studies reviewed. Baseline EKG-underlying sinus rhythm at 64/Min; possible left atrial enlargement; no significant ST-T changes and otherwise unremarkable. In the exercise stress test, she was able to do up to 4.6 METS on Blas protocol. Reached target heart rate and had some shortness of breath but no chest discomfort. There was evidence of ST depression-seen during stage I of exercise as well as during recovery. The ST depression does persist several minutes into recovery. In the perfusion component, thought to be possible ischemia in the distal anteroseptal/inferolateral areas. In the echocardiogram, LVEF 59%. Severe calcification of the aortic valve with moderate stenosis. Moderate mitral annular calcification. Overall, chest pain with varying characteristics nonexertional as well as exertional; abnormal stress test; moderate aortic stenosis. Plan for diagnostic catheterization. Discussed with patient and she agrees. Per patient, she started taking aspirin recently after the stress test and since having nosebleeds. Discussed with , who recommended ENT consultation prior to scheduling catheterization. Hence this is being arranged. Plan discussed with patient in great detail and she agrees. Orders: Orders Complete Blood Count no Diff Today R07.2 - Precordial pain, R94.39 - Abnormal result of other cardiovascular function study Prothrombin Time INR Today I25.10 - Atherosclerotic heart disease of [place] coronary artery without angina pectoris Basic Metabolic Panel Today I50.9 - Heart failure, unspecified Cardiac Cath LT Diagnostic Today I25.10 - Atherosclerotic heart disease of [place] coronary artery without angina pectoris, R94.39 - Abnormal result of other cardiovascular function study Referrals Ear/Nose/Throat Referral R04.0 - Epistaxis Coding Level of Care Code Est Pt Level 5 (12876) Diagnoses Precordial chest pain R07.2 Abnormal stress test R94.39 Nonrheumatic aortic (valve) stenosis I35.0
[2024-04-02 15:10] VITALS: BP 138/50; PULSE 80; BMI 25.7
== END 2024-04-02 15:44 | disposition home or self-care (01) ==
LOC: HO.HCS 15:08
PROVIDERS: PCP Physician Assistant; Visit Provider Internal Medicine
DX: R07.2 Precordial pain (principal); R94.39 Abnormal result of other cardiovascular function study; I35.0 Nonrheumatic aortic (valve) stenosis
CPT/HCPCS: 99214

== ENCOUNTER → 2024-04-02 15:07 | Outpatient (BNVA) | payer OTHER, SELFPAY | PROVIDERS: PCP Physician Assistant; Visit Provider Internal Medicine ==

== ENCOUNTER 2024-04-06 11:05 | Outpatient (AMB) | payer OTHER, SELFPAY ==
--- NOTE | 2024-04-06 08:04 | A.OFFVIS_ITS ---
Intake Visit Reasons: Former Smoker Allergies erythromycin base Allergy (Intermediate, Verified 03/30/24 10:59) Vomiting Seasonal Allergies Allergy (Intermediate, Verified 03/30/24 10:59) Runny Nose codeine [CODEINE] Allergy (Unknown, Verified 03/30/24 10:59) NAUSEA HPI HPI Former Smoker: Details: Initial visit for this 73yo formersmoker with a 50PYH. Patient started smoking at age 17 for 51 years at 1ppd. She quit 03/2019. . Denies marijuana use. Denies second hand smoke exposure. Denies exposure to chemicals or substances like asbestos. 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 . Reports family history of lung cancer. Dad at 73yo. Reports personal history of BCC skin cancer. Denies chest CT in last year. . Denies recent travel outside the [place]. Denies recent respiratory illness or recent hospitalization for respiratory issu es. Reports testing positive for COVID. Admits receiving COVID Vaccine. . History of RA on long-term immunosuppressants Denies fever, chills, new/worsening cough, hemoptysis, hoarseness or dysphagia. Denies significant chest pain, significant dyspnea or unintentional weight loss. Patient Lung Cancer Screening Questionnaire reviewed with patient by provider. . Shared Decision Making Completed. Patient meets criteria. Discussed in detail with patient, the risk vs benefit of LDCT screening. Patient consents to proceed with scan. Discussed and encouraged continued smoking cessation. [facility] Medical History (Updated 04/06/24 @ 11:13 by Peggy Rodriguez PA-C) correction current use of immunosuppressive drug Rheumatoid arthritis (~2020) Osteopenia IBS (irritable bowel syndrome) Personal history of nicotine dependence Periodontal disease Anemia, iron deficiency Intermittent pain and swelling of hand Surgical History (Updated 04/06/24 @ 11:15 by Peggy Rodriguez PA-C) History of basal cell carcinoma (BCC) excision History of colonoscopy History of eye surgery History of cataract surgery History of tonsillectomy S/P breast biopsy, right Family History Mother Anemia Breast cancer Hypertension Father Rheumatoid arthritis Lung cancer Hypertension Daughter Thyroid cancer Social History (Updated 04/06/24 @ 11:13 by Peggy Rodriguez PA-C) Household Members Other:: lives alone Housing: House Are you a primary child care group leader to a significant other at home: No Do you presently have visiting nurse or other home services: No Alcohol intake: current Alcohol intake frequency: holidays/special occasions only Alcohol type: hard liquor Patient Tobacco Use Status: Former Tobacco user Years Smoked: (onset 17yo, 1ppd x 51yrs, 50pyh - quit 03/2019) e-Cigarette/Vaping Use: Never Used service: No Current occupational status: retired 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 - Patient meets criteria for LDCT for lung cancer screening purposes and is asymptomatic. - Smoking cessation counseling offered. Patients can always call [phone]. - Will arrange for a LDCT scan of the chest for screening purposes at [facility]. - Risks, benefits, and alternatives were discussed in detail and the patient agrees to proceed. - Risks discussed include but are not limited to: radiation exposure, anxiety during testing and while awaiting results, false negatives, false positives and possibility of additional intervention such as further imaging or surgical procedures for benign disease. - Benefits are obviously detection of lung cancer at an early stage which can lead to improved outcomes. - Discussed the importance of screening program compliance with adherence to yea rly LDCT scan as scheduled - or sooner interval scans for personalized screening regimen. - Discussed follow up plan. Our office will send a letter discussing results and if needed set up phone call and office visit based on CT findings. - Patient educated on results categorization and the management decisions for suspicious findings potentially found on the screening LDCT scan. Any patient with a Lung RADS score of 3 or 4 will be reviewed by a multidisciplinary team at [facility] to form a plan of action in regards to scan findings. - If further work up is warranted for a suspicious lung finding this will be followed by the Lung Cancer Screening program in conjunction with the Thoracic Surgery Department at [facility]. - A copy of the office note and LDCT will be sent to the patient's PCP - as well as documentation on any associated further plans of care. - Incidental findings on LDCT are the PCP's responsibility. These findings are indicated with an S finding on the LDCT Assessment. A note discussing the findings will be sent to the PCP who is then responsible for further management. - All questions answered.? Coding Level of Care Code Lung Cancer Screening G0296 Diagnoses Personal history of nicotine dependence Z87.891
== END 2024-04-06 11:23 | disposition home or self-care (01) ==
LOC: HO.HPS 11:06
PROVIDERS: PCP Physician Assistant; Visit Provider Physician Assistant Medical
DX: Z87.891 Personal history of nicotine dependence (principal)
CPT/HCPCS: G0296

== ENCOUNTER 2024-04-06 11:21 | Outpatient (REF) | payer OTHER, SELFPAY | END 2024-04-06 11:22 | disposition home or self-care (01) | LOC: HO.CT 11:21 | PROVIDERS: PCP Physician Assistant; Visit Provider Physician Assistant Medical | DX: Z12.2 Encounter for screening for malignant neoplasm of respiratory organs (principal); Z87.891 Personal history of nicotine dependence | CPT/HCPCS: 71271; G0296 ==

== ENCOUNTER 2024-04-20 10:56 | Outpatient (REF) | payer OTHER, SELFPAY ==
--- NOTE | 2024-04-20 11:02 | PFT_ITS ---
Flows: FEV1: 100 % of predicted at 1.98 L FVC: 100 % of predicted at 2.58 L FEV1/FVC: 77 % Bronchodilator response: Not performed Volumes: Total lung capacity: 99 % of predicted at 4.54 L Residual volume: 100 % of predicted at 1.87 L Slow vital capacity: 99 % of predicted at 2.67 L Expiratory reserve volume: 188 % of predicted at 1.20 L Diffusion capacity: Mildly decreased, corrects to normal after adjustment for alveolar ventilation. Impression: No obstructive or restrictive ventilatory defect. No bronchodilator response. Decreased diffusion capacity suggests emphysema. MTDD
[2024-04-20 14:25] VITALS: PULSE 86; O2SAT 99
== END 2024-04-20 10:57 | disposition home or self-care (01) ==
LOC: HO.RESP 10:56
PROVIDERS: PCP Physician Assistant; Visit Provider Physician Assistant
DX: R06.09 Other forms of dyspnea (principal); M06.09 Rheumatoid arthritis without rheumatoid factor, multiple sites; Z87.891 Personal history of nicotine dependence
CPT/HCPCS: 94010; 94640; 94727; 94729

== ENCOUNTER → 2024-04-20 11:02 | Outpatient (BNV) | payer OTHER, SELFPAY | PROVIDERS: PCP Physician Assistant; Visit Provider Internal Medicine Pulmonary Disease | DX: R06.09 Other forms of dyspnea (principal); Z87.891 Personal history of nicotine dependence | CPT/HCPCS: 94060; 94727; 94729 ==

== ENCOUNTER 2024-04-23 14:31 | Outpatient (REF) | payer OTHER, SELFPAY ==
[2024-04-23 17:34] LABS: Hemoglobin 10.5 g/dl (12.0-16.0); Mean Corpuscular HGB Conc 32.8 g/dl (31.0-35.0); Mean Corpuscular Hemoglobin 30.1 pg (27.0-33.0); Mean Corpuscular Volume 91.7 fL (80.0-98.0); Mean Platelet Volume 9.2 fL (9.4-12.3); Platelet Count 352 X10*3/uL (160-400); Red Blood Count 3.49 X10*6/uL (4.20-5.50); Red Cell Distribution Width 13.8 % (11.0-16.0); White Blood Count 5.6 X10*3/uL (4.8-10.8)
[2024-04-23 17:39] LABS: Prothrombin Time 11.4 SEC (10.9-12.4)
[2024-04-23 17:41] LABS: Anion Gap 9 (12-20); Blood Urea Nitrogen 10 mg/dL (9-16); Calcium 8.9 mg/dL (8.4-10.2); Carbon Dioxide 29 mmol/L (22-29); Chloride 107 mmol/L (96-108); Estimated Glomerular Filt Rate > 60; Glucose Random 101 mg/dL (60-115); Potassium 3.8 mmol/L (3.3-5.1); Sodium 141 mmol/L (135-145)
== END 2024-04-23 14:32 | disposition home or self-care (01) ==
LOC: HO.WFDLDS 14:31
PROVIDERS: Visit Provider Internal Medicine
DX: R07.2 Precordial pain (principal); I50.9 Heart failure, unspecified; R94.39 Abnormal result of other cardiovascular function study; I25.10 Atherosclerotic heart disease of native coronary artery without angina pectoris
CPT/HCPCS: 36415; 80048; 85027; 85610

== ENCOUNTER → 2024-05-01 23:59 | Outpatient (BNV) | payer OTHER, SELFPAY | PROVIDERS: PCP Physician Assistant; Visit Provider Internal Medicine Cardiovascular Disease | DX: I20.89 Other forms of angina pectoris (principal); R83.1 Abnormal level of hormones in cerebrospinal fluid | CPT/HCPCS: 93458; 99152 ==

== ENCOUNTER 2024-05-21 12:52 | Outpatient (AMB) | payer OTHER, SELFPAY ==
[2024-05-21 13:11] VITALS: BP 124/60; PULSE 78; BMI 25.8
--- NOTE | 2024-05-21 13:11 | A.OFFVIS_ITS ---
Vital Signs 05/21/24 13:11 Height 5 ft 2 in Weight 141 lb 1.533 oz BMI 25.8 BP 124/60 Blood Pressure Location Lt brachial Position Sitting Pulse 78 Pulse Source Pulse Oximeter Intake Visit Reasons: 2 wk s/p Cardiac CATH Allergies erythromycin base Allergy (Intermediate, Verified 03/30/24 10:59) Vomiting Seasonal Allergies Allergy (Intermediate, Verified 03/30/24 10:59) Runny Nose codeine [CODEINE] Allergy (Unknown, Verified 03/30/24 10:59) NAUSEA Medication List - Last Reconciled 05/21/24 by Logan Cannon MD calcium carbonate-vitamin D3 500 mg-10 mcg (400 unit) (Calcium 500 With D) 1 tab PO BID famotidine 20 mg PO BID folic acid 1 mg PO DAILY ibuprofen 200 mg PO Q6H PRN insulin syringe-needle U-100 (BD Insulin Syringe) Use once weekly with methotrexate methotrexate sodium 25 mg subcut QWEEK HPI Comments Details: Johanne returns for follow-up. Recently seen in consultation regarding abnormal stress test. Per PCP note, she has had chest pain for the last 2 years. Varying description from patient with both nonexertional as well as exertional chest pains. No documented coronary history. History of rheumatoid arthritis on immunosuppressive agents. After noninvasive workup, she underwent a diagnostic catheterization but no clear obstructive findings. She states she feels fine for the most part these days. She has not had any further chest pains. Otherwise, she was getting some epistaxis with aspirin, but saw ENT and had nose cauterization and no epistaxis since. [facility] Medical History (Updated 04/06/24 @ 11:13 by Peggy Rodriguez PA-C) longterm current use of immunosuppressive drug Rheumatoid arthritis (~2020) Osteopenia IBS (irritable bowel syndrome) Personal history of nicotine dependence Periodontal disease Anemia, iron deficiency Intermittent pain and swelling of hand Surgical History (Updated 04/06/24 @ 11:15 by Peggy Rodriguez PA-C) History of basal cell carcinoma (BCC) excision History of colonoscopy History of eye surgery History of cataract surgery History of tonsillectomy S/P breast biopsy, right Family History Mother Anemia Breast cancer Hypertension Father Rheumatoid arthritis Lung cancer Hypertension Daughter Thyroid cancer Social History (Updated 04/06/24 @ 11:13 by Peggy Rodriguez PA-C) Household Members Other:: lives alone Housing: House Are you a primary pharmacy customer care specialist to a significant other at home: No Do you presently have visiting nurse or other home services: No 75 years or older and lives alone: No Alcohol intake: current Alcohol intake frequency: holidays/special occasions only Alcohol type: hard liquor Patient Tobacco Use Status: Former Tobacco user Years Smoked: (onset 17yo, 1ppd x 51yrs, 50pyh - quit 03/2019) e-Cigarette/Vaping Use: Never Used service: No Current occupational status: retired 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 Current occupational exposures/hazards: No Cognitive needs: No Hearing needs: Yes (some hearing loss) Vision needs: Yes (glasses) Review of Systems Const Denies weakness ENT Denies dizziness Card Denies chest pain, Denies chest pain with activity, Denies syncope, Denies rapid heart rate, Denies pedal edema, Denies edema, Denies leg edema, Denies ligh theadedness, Denies palpitations, Denies dyspnea, Denies dyspnea on exertion and Denies orthopnea Resp Denies cough, Denies dyspnea and Denies dyspnea on exertion GI Denies hematochezia and Denies change in stool character Musc Denies abnormal gait, Denies muscle cramps, Denies muscle weakness, Denies numbness, Denies radiating pain into limb and Denies tingling Neuro Denies Abnormal speech present, Denies abnormal gait, Denies dizziness, Denies syncope, Denies numbness, Denies tingling and Denies weakness Endo Denies palpitations Physical Exam Vital Signs: Last Vital Signs Pulse 78 05/21/24 13:11 BP 124/60 05/21/24 13:11 BMI result Body Mass Index 25.8 Const General: comfortable and no acute distress Orientation/consciousness: patient oriented x3 HEENT Other: Unremarkable Head: Yes normal to inspection Neck Neck: Yes normal visual inspection Chest Chest palpation & inspection: normal inspection of the chest Resp Auscultation: clear to auscultation bilaterally Cardio Palpation: normal PMI Heart sounds: S1 normal heart sound present, S2 normal heart sound present, no gallops, Murmur heart sound present systolic III/ and at the right sternal border and no rubs GI Palpation (GI): Soft to palpation Back/Spine/Pelvis Other: unremarkable Skin General skin exam: no rashes or lesions noted Neuro General: patient oriented x3 Speech: No Abnormal speech present Extrem General: Yes normal to inspection Psych Mental Status: mental status grossly normal Assessment & Plan Assessment & Plan (1) Precordial chest pain: Code(s): R07.2 - Precordial pain Category: Medical (2) Abnormal stress test: Code(s): R94.39 - Abnormal result of other cardiovascular function study Category: Medical (3) Nonrheumatic aortic (valve) stenosis: Code(s): I35.0 - Nonrheumatic aortic (valve) stenosis Category: Medical Plan Cardiac studies reviewed. Baseline EKG-underlying sinus rhythm at 64/Min; possible left atrial enlargement; no significant ST-T changes and otherwise unremarkable. In the exercise stress test, she was able to do up to 4.6 METS on Blas protocol. Reached target heart rate and had some shortness of breath but no ch est discomfort. There was evidence of ST depression-seen during stage I of exercise as well as during recovery. The ST depression does persist several minutes into recovery. In the perfusion component, thought to be possible ischemia in the distal anteroseptal/inferolateral areas. In the echocardiogram, LVEF 59%. Severe calcification of the aortic valve with moderate stenosis. Moderate mitral annular calcification. In the cardiac catheterization, minimal irregularities in the LAD but otherwise normal coronary arteries. Normal LVEDP. Overall, chest pain with atypical/typical characteristics but none recently; abnormal stress test; unremarkable catheterization; moderate aortic stenosis; epistaxis with aspirin status post nose cauterization; concurrent arthritic pains. In this context, we can stop her aspirin and monitor. Chest pain could have some components of microvascular disease but not entirely clear. Could all be still just musculoskeletal. If any recurrent issues, we can reassess. With regard to the aortic stenosis, we can recheck with an echocardiogram in about 6 months' time. We will be eventually a TAVR candidate. Orders: Orders CA echo transthoracic complete 6 Months I35.0 - Nonrheumatic aortic (valve) stenosis Coding Level of Care Code Est Pt Level 4 (43951) Diagnoses Precordial chest pain R07.2 Abnormal stress test R94.39 Nonrheumatic aortic (valve) stenosis I35.0
== END 2024-05-21 13:44 | disposition home or self-care (01) ==
PROVIDERS: PCP Physician Assistant; Visit Provider Internal Medicine
DX: R07.2 Precordial pain (principal); R94.39 Abnormal result of other cardiovascular function study; I35.0 Nonrheumatic aortic (valve) stenosis
CPT/HCPCS: 99214

== ENCOUNTER 2024-05-23 08:42 | Outpatient (AMB) | payer OTHER, SELFPAY ==
--- OUTSIDE RECORDS SUMMARY | 2024-05-23 08:54 | XMS_ITS | Continuity of Care Document ---
Author Organization [facility] ter Address [address] [place] [id number]- Care Team Providers Care Kettle Firer Name Role Phone Lindsey Pichardo MD Primary Care Physic zoila [place] [facility] [place]): [place] - 05/01/[address] [address]- Discharge Disposition: A-D/C Home Attending Physician: Colton Mallory MD Admitting Physician: Colton Mallory MD Referring Physician: Logan Cannon MD Encounter Type: Disch Daystay Allergies, Adverse Reactions, Alerts Substance Criticality Severity Reaction Reaction Severity Status codeine Active azithromycin vomiting Active Medications aspirin 81 mg oral capsule 1 capsule = 81 mg, By Mouth, Daily, do not exceed 48 capsules in 24 hours, # 30 capsule, 0 Refills,Maintenance, 05/01/24 9:09:00 AM EST, Capsule, Partial fill upon patient request if the prescription is for a schedule II opioid drug. Start Date: 05/01/24 Status: Ordered Quantity: 30.0 Unit: capsule Repeat number: 1 calcium (as carbonate) 500 mg oral tablet, chewable 1 tablet = 500 mg, Chew, Daily, # 150 tablet, 0 Refills, Maintenance, 05/01/24 9:10:00 AM EST, ChewTablet, Partial fill upon patient request if the prescription is for a schedule II opioid drug. Start Date: 05/01/24 Status: Ordered Quantity: 150.0 Unit: tablet Repeat number: 1 dicyclomine 20 mg oral tablet 1 tablet = 20 mg, By Mouth, 4 times a day, # 12 tablet, 0 Refills, Maintenance, 12/06/22 9:35:00 PM EDT, Tablet, [id number], Partial fill upon patient request if the prescription is fora schedule II opioid drug., 165, cm, 12/06/22 18:14:00 EDT, Height, 66, kg, 12/06/22 18:14:00 EDT, Dry Weight Start Date: 12/06/22 Stop Date: 12/09/22 Status: Ordered Quantity: 12.0 Unit: tablet Repeat number: 1 folic acid 1 mg oral tablet 1 mg, 1, tablet, By Mouth, Daily, # 30 tablet, Refills 0, Maintenance, 04/08/22 3:15:00 PM EDT, Partial fill upon patient request if the prescription is for a schedule II opioid drug. Start Date: 04/08/22 Status: Ordered Quantity: 30.0 Unit: tablet Repeat number: 1 methotrexate 7.5 mg oral tablet 1 tablet = 7.5 mg, By Mouth, Every week, # 4 tablet, 0 Refills, Maintenance, 04/08/22 3:15:00 PM EDT, Tablet, Partial fill upon patient request if the prescription is for a schedule II opioid drug. Start Date: 04/08/22 Status: Ordered Quantity: 4.0 Unit: tablet Repeat number: 1 pantoprazole 40 mg oral delayed release tablet 1 tablet = 40 mg, By Mouth, Daily, # 30 tablet, 0 Refills, Maintenance, 11/01/23 1:10:00 PM EDT, EC Tablet, 164, cm, 11/01/23 13:01:00 EDT, Height, 65.9, kg, 11/01/23 13:01:00 EDT, Dry Weight Start Date: 11/01/23 Status: Ordered Quantity: 30.0 Unit: tablet Repeat number: 1 Pepcid 20 mg oral tablet 1 tablet = 20 mg, By Mouth, 2 times a day, # 180 tablet, 0 Refills, Maintenance, 05/21/21 1:43:00 PM EST, Tablet, Partial fill upon patient request if the prescription is for a schedule II opioid drug. Start Date: 05/21/21 Status: Ordered Quantity: 180.0 Unit: tablet Repeat number: 1 Vitamin B12 50 mcg oral tablet 1 tablet = 50 mcg, By Mouth, Daily, # 30 tablet, 0 Refills, Maintenance, 04/08/22 3:15:00 PM EDT, Tablet, Partial fill upon patient request if the prescription is for a schedule II opioid drug. Start Date: 04/08/22 Status: Ordered Quantity: 30.0 Unit: tablet Repeat number: 1 Vital Signs Most recent to oldest [Reference Range]: 1 2 3 Height 163 cm (05/01/24 9:00 AM) Weight 65 kg (05/01/24 9:00 AM) Oxygen Saturation [94-100 %] 100 % (05/01/24 2:01 PM) 100 % (05/01/24 1:59 PM) 100 % (05/01/24 1:14 PM) Pulse Rate [55-90 bpm] 65 bpm (05/01/24 9:00 AM) Body Mass Index [18.5-24.99 kg/m2] 24.46 kg/m2 (05/01/24 9:00 AM) Blood Pressure [90-138/55-84 mm Hg] 123/64mm Hg (05/01/24 2:30 PM) 124/68mm Hg (05/01/24 2:00 PM) 128/68mm Hg (05/01/24 1:45 PM) Respiratory Rate [16-30 br/min] 18 br/min (05/01/24 2:01 PM) 16 br/min (05/01/24 1:59 PM) 16 br/min (05/01/24 1:14 PM) Temperature [96.8-100.4 DegF] 98 DegF (05/01/24 9:00 AM) Mode of Delivery (Oxygen) Room air (05/01/24 9:00 AM) Blood pressure sites Arm, right (05/01/24 9:00 AM) Temperature Route Temporal (05/01/24 9:00 AM) Dry Weight 65 kg (05/01/24 9:00 AM) Social History Social History Type Response Smoking Status Former smoker, quit more than 30 days ago; Other: quit 03/2019, smoked 1/2 per day for a long time ; entered on: 06/05/19 Sex Sex Representation Female (finding) Note * Event Display: Hemodynamic Procedure Report Authored Date: * Yovani Ibrahim: PERFORM, SIGN, VERIFY Event Display: Cardiac Rehab Note Authored Date: [id number] Patient: JOSEP COVINGTON Age: 73 years Sex: Female : 1950 Associated Diagnoses: None Author: Yovani Ibrahim Diagnosis Cardiac Rehab Diagnosis: Pt does not have a qualifying diagnosis for Cardiac Rehab, will sign off.. * Bette Nash RN: PERFORM Event Display: Discharge/Transfer Note Hospital Authored Date: [id number] Nursing Discharge Note Entered On: 05/01/2024 15:49 EST Performed On: 05/01/2024 15:48 EST by Bette Nash RN Nursing Discharge Note 2 Discharge Time : 05/01/2024 15:40 EST Discharge Level of Care at Discharge : Home/Senior Living/Foster Care Patient Left Unit Via : Wheelchair Patient Accompanied Off Unit with : Responsible adult DC Instructions Provided & Signed by Pt : Yes Patient Understands D/C Instructions : Yes Patient Instructions Discharge Signed : Yes Did Pt have Specialty Bed or Wound Vac : No Bette Nash RN - 05/01/2024 15:48 EST * Bette Nash RN: PERFORM Event Display: Patient Education/Instruction Authored Date: [id number] Inpatient Adult Discharge Instructions. [place] [id number] Name: JOSEP COVINGTON : 1950?? Visit: 05/01/2024 08:53?? Current Date: 05/01/2024 15:31 ?? Account: [id number]?? Inpatient Adult Discharge Instructions We would like to thank you for allowing us to assist you with your healthcare needs. The following includes patient education materials and information regarding your injury/illness. Our entire staffstrives to provide an excellent experience for our patients and their families. PLEASE ENSURE YOU FOLLOW-UP PER THE INSTRUCTIONS BELOW! ?? YOUR OPINION IS IMPORTANT TO US! Please complete the survey you may receive by mail or email. Your feedback will be used to make improvements to the healthcare experiences of our patients and their families. Surveys are administered by [employer] ?? If further treatment with your primary care physician or another doctor is recommended, it is important for you to keep the appointment. Call your primary care physician or return to the Emergency Department immediately if your condition worsens, fails to improve, or new symptoms develop. If you need to find a doctor, you can call [facility] Link for a referral at [phone] or toll free at [phone] or log in to [email or web address].. ?? [facility], in keeping with [facility] guidance, no longer requires face masks for staff, patientsor visitors in most situations. Similiar to time spent indoors at other locations, there is the chance that you were exposed to repiratory viruses during your time with us (such as flu or COVID-19). If you develop symptoms concerning for a viral respiratory infection, please seek testing (and treatment if indicated) from your medical provider or home test kit. ?? You can view and manage your care through the patient portal or by using a health care [facility] of your choosing. [employer] is a website that allows you to securely view your medical information including your hospital discharge summary, office visit summaries, medications and follow-up visits. You can also request appointments, renew medications, and request access to your medical information using a health care [facility] of your choosing, or just ask a question. You can enroll at [email or web address] or register during your next office visit. You have been discharged from [facility], Patient Care Unit: CARE??. If you have any questions regarding these instructions, including results of studies pending, afteryou leave, please call us and we will be happy to assist you 27/12. [facility] Nursing Unit Direct Phone Number, for 27/12 contact and results of studies pending CARE [address] [place] [id number] Your Care Team Attending Physician Colton Mallory MD?? Consulting Providers Colton Mallory MD?? Discharging Providers Sandie Negrete MD Tests Performed Below is a partial list of the tests performed during your hospitalization. You may have had other tests and procedures not included in this list. Please discuss all test results with your provider. Type and Screen Type and Screen?? Primary Care Provider Lindsey Pichardo MD? Advance Directive Health Care Proxy on File No Discharge Vitals Temperature: 98 DegF Height: 163 cm Pulse Rate: 65 bpm Weight: 65 kg Respiratory Rate: 18 br/min Body Mass Index: 24.46 kg/m2 Systolic Blood Pressure: 123 mm Hg Body surface area: 1.72 Diastolic Blood Pressure: 64 mm Hg ?? Oxygen Saturation: 100 % ?? Studies Pending All studies ordered during this hospital stay have been completed unless listed below. Please discuss all pending results with your provider listed above in these instructions. ?? No incomplete studies found?? What to do next Instructions From Your Doctor ?? Orders?? Daystay Protocol, ??05/01/24 10:23:00 EST?? Discharge Medications JOSEP COVINGTON :1950 Visit Date:05/01/2024 Medications: Please continue your medications until treatment is completed or stopped by your provider. Medications not listed below should be discontinued. Discuss any questions related to medications with your provider. What How Much When Instructions Next Dose Unchanged Aspirin (aspirin 81 mg oral capsule) 1 capsule Oral Daily do not exceed 48 capsules in 24 hours ?? resume Unchanged Calcium Carbonate (calcium (as carbonate) 500 mg oral tablet, chewable) 1 tab(s) Chew Daily resume Unchanged Cyanocobalamin (Vitamin B12 50 mcg oral tablet) 1 tab(s) Oral Daily resume Unchanged Dicyclomine (dicyclomine 20 mg oral tablet) 1 tab(s) Oral 4 times a day Duration: 3 Days resume Unchanged Famotidine (Pepcid 20 mg oral tablet) 1 tab(s) Oral Twice a day resume Unchanged Folic Acid (folic acid 1 mg oral tablet) 1 tab(s) Oral Daily resume Unchanged Methotrexate (methotrexate 7.5 mg oral tablet) 1 tab(s) Oral Every week resume Unchanged Pantoprazole (pantoprazole 40 mg oral delayed release tablet) 1 tab(s) Oral Daily resume Prescription Given During Visit No new medications prescribed at time of discharge.?? Laboratory Results Below is a partial list of the most recent Laboratory test results done prior to this discharge. You may have had other tests and procedures not included in this list. Please discuss all test resultswith your provider. Type and Screen (05/01/2024) ???Blood Type - A Negative???Antibody Screen - Negative You will be contacted within 72 hours with your results. Allergies (NKA means No Known Allergies) azithromycin??(vomiting) codeine Problems No qualifying data available Education Materials Below is the list of Educational Leaflet Providered with your Discharge Instructions. [employer] Patient Education - Surgery Radial Cath Approach Discharge Instructions?? [employer] Patient Education - Procedural Sedation?? Valuables and Belongings I fully understand and agree that [facility] accepts no responsibility for all my personal property including clothing, toilet articles, radios, jewelry, dentures, hearing aids, rings, money, or any other property that is in my possession or is brought to me after admission. I understand certain valuables may be placed in a hospital safe for a short period of time. I understand that the hospital is not liable for loss or damage due to accident, fire, or other natural occurrence while said property is in the safe. I accept full responsibility for any personal property that I keep with me, and will not hold the hospital responsible in case of loss or disappearance. I acknowledge that i have been encouraged to send valuables and belongings home. ?? Review of Valuable and Belonging List: With patient Date for Pt to Sign Valuables/Belongings: 05/01/24 13:35:00 ?? Valuables & Belongings ?? Clothes Electronic devices Jewelry Monetary Items Personal devices Miscellaneous Medications (Valuables) Valuables at Bedside Pants, Shirt, Shoes, Undergarments Cell phone ?? Purse ?? Books ?? Valuables Sent Home ? Valuables Sent to Security ? Valuables Sent to Locker ? Other Discharge Information ? Pulmonary Rehab Status?? Pulmonary Rehab Discharge Status?? Respiratory Rate: 18 br/min ? Common Emergency Awareness Tips IS IT A STROKE? Act FAST and Check for these signs: FACE Does the face look uneven? ARM Does one arm drift down? SPEECH Does their speech sound strange? TIME Call at any sign of stroke ?? Heart Attack Signs Chest discomfort: Most heart attacks involve discomfort in the center of the chest and lasts more than a few minutes, or goes away and comes back. It can feel like uncomfortable pressure, squeezing, fullness or pain. Discomfort in upper body: Symptoms can include pain or discomfort in one or both arms, back, neck, jaw or stomach. Shortness of breath: With or without discomfort. Other signs: Breaking out in a cold sweat, nausea, or lightheaded. Remember, MINUTES DO MATTER. If you experience any of these heart attack warning signs, call to get immediate medical attention! ?? Smoking can increase your chances of developing chronic health problems and can cause harmful effects to other family members in your house. If you smoke, you are strongly encouraged to quit. Please call [facility] [employer] Link at [phone] or [phone] ([phone]) or log in to [email or web address] for referrals to smoking cessation programs. ?? 473 Suicide & Crisis Lifeline is available 27/12 if you or someone you know needs to find a reason to keep living. By calling 046 you'll be connected to a skilled, trained counselor at a crisis center in your area. INPATIENT DISCHARGE INSTRUCTIONS SIGNATURE PAGE NADYAKAROLH Location:[facility] Registration Date and Time:05/01/2024 08:53 EST Primary Care Physician: Lindsey Pichardo MD, Attending Physician: Mohamud GONZALEZ, [facility], I JOSEP COVINGTON, have received the above patient education materials/instructions and have verbalized understanding. If ambulance or transport services are being used I further acknowledge being given a choice of service. ?? If you need to contact me, please call me at this number: . Patient/Services Program Manager Name: Patient/Services Program Manager Signature: Relationship to Patient: Witness Name/Signature: Date: * Bette Nash RN: PERFORM Event Display: Patient Education Leaflets Authored Date: [id number] Surgery Radial Cath Approach Discharge Instructions ?? 278 Radial Cath Approach Discharge Instructions ?? Activity Take it easy the rest of the day. Limit your activity on the affected side.?? Act as if your arm is broken for 24 hours. No lifting with affected arm for 24 hours. No pushing or pulling with the affected arm. Do not reach or lift with the affected arm. Do not place excessive pressure on the wrist. ?? Precautions Due to intravenous sedation: It is recommended that someone stay with you for the first night after your procedure. Do not drive or operate hazardous machinery for 24 hours. Do not make legal decisions for 24 hours. Avoid alcohol for 24 hours. Unless directed otherwise, keep yourself hydrated. ?? Dressing/Incision Care You may remove the dressing 24 hours after your procedure. Replace with band aid for an additional 24 hours. You may shower and cleanse the site with soap & water then pat dry. Avoid submersion of site in water x 5 days. Cover the with a clean band aid daily until site is healed. If the band aid becomes soiled, replacewith a clean new one. Do not apply any ointments, lotions, gels or powders to the puncture site. ?? When to contact your doctor If any of the following signs of infection occur: Fever greater than 100 degrees F Increased pain Drainage, redness or warmth at puncture site Tingling of the fingers and hand that last longer than 3 days Slight bubble of blood or bleeding from site: apply manual pressure and notify your doctor ?? Emergency situations: Bleeding from the site that will not stop: apply manual pressure and notify your doctor Profuse bleeding streaming from the puncture site: Apply manual pressure and notify your doctor immediately If your hand becomes bluish, cold to the touch, or painful, notify your doctor immediately or [facility]. For these emergent situations: If unable to contact your physician, call 911. ?? * Bette Nash RN: PERFORM Event Display: Patient Education Leaflets Authored Date: [id number] Procedural Sedation ?? [address] Procedural Sedation Procedural sedation is medicine to ease discomfort, pain, and anxiety during a procedure. The medicine is often given through an IV (intravenous) line in your arm or hand. In some cases, the medicinemay be taken by mouth or inhaled. While you are under sedation, you will likely be awake. But you may not remember it afterward. Why procedural sedation is used Sedation is used for many types of procedures. The goal is to reduce pain, anxiety, and stressful memories of a procedure. It can help your healthcare provider treat you. For example, having a brokenbone fixed may be easier if you feel relaxed. This type of sedation is used only for short, basic procedures. It's not used for complex surgery. Some procedures that use this type of sedation include: ??? Dental surgery ??? Breast biopsy, to take a sample of breast tissue ??? Endoscopy, to look at gastrointestinal problems ??? Bronchoscopy, tocheck for lung problems ??? Bone or joint realignment, to fix a broken bone or dislocated joint ???Minor foot or skin surgery ??? Electrical cardioversion, to restore a normal heart rhythm ??? Lumbar puncture, to check for neurological disease ?? Risks of procedural sedation Risks and possible side effects include: ??? Headache ??? Nausea and vomiting ??? Bad memories of the procedure ??? Slowed breathing ??? Changes in heart rate and blood pressure (rare) ??? Inhalation of stomach contents into your lungs (rare) Side effects will likely go away shortly after the procedure. Your healthcare team will watch your heart rate and breathing during and after your sedation. This is to help prevent problems. Your own risks may vary. They can be based on your age and your overall health. They also depend onthe type of sedation you are given. Talk with your healthcare provider about the risks that apply most to you. ?? Getting ready for procedural sedation Talk with your provider about how to get ready for your procedure. Tell them about all the medicines you take. This includes qjhy-zeb-[id number] medicines, such as ibuprofen. It also includes vitamins, herbs, and other supplements. You may need to stop taking some medicines before the procedure, such as blood thinners and aspirin. If you smoke, you should stop. This is to lessen the chance of a lungproblem. Talk with your provider if you need help to stop smoking. Tell your provider if you: ??? Have had any problems in the past with sedation or anesthesia ??? Have had any recent changes in your health, such as an infection or fever ??? Are or think you could be Also: ??? Follow any directions you are given for not eating or drinking before procedure. ??? Ask a trusted adult to take you home after the procedure. You can???t drive on the day you have sedation. ??? Ask a trusted adult to stay with you for a few hours while you recover. ??? Don't make any important decisions, such as financial or legal, on the day after you have sedation. ??? Follow all other instructions from your provider. ?? During your procedural sedation You may have your procedure in a hospital or a clinic. Sedation is done by a trained healthcare provider. In general, you can expect the following: ??? You will be given medicine through an IV line in your arm or hand. Or you may get a shot or take it by mouth. Or you may inhale it through a mask. ??? If you have medicine through an IV, you may feel the effects very quickly. You will start to feel relaxed and drowsy. ??? During the procedure, your heart rate, breathing, and blood pressure will be closely watched. Your breathing and blood pressure may decrease a little. But you will likely notneed help with your breathing. You may get a little extra oxygen. This is done through a mask or some soft plastic prongs under your nose. ??? You will likely be awake the whole time. If you do fall asleep, you should be easy to wake up, if needed. You should feel little or no pain. ??? When your procedure is over, the sedative medicine will be stopped. ?? After your procedural sedation You will start to feel more awake and aware. But you will likely be drowsy for a while afterward. You will be closely watched as you become more alert. You may have a faint memory of the procedure. Or you may not remember it at all. You should be able to go home within 1 to 2 hours after your procedure. Plan to have a trusted adult stay with you for a few hours. This person should make sure your condition is not getting worse. They should also watch for problems, and keep you safe. You may have side effects, such as nausea, fatigue, or unsteadiness for up to 24 hours. You may also feel lightheaded. Tell your healthcare provider if they continue. Don???t drive or operate dangerous machines during the next 24 hours. Also, don't make any important business or personal decisions. And don't drink any alcohol during the next 24 hours. Take extra care when walking and moving, You may be at a higher risk of falling. Follow any instructions you were given for eating and drinking. Be sure to follow all after-care directions. ?? When to call your healthcare provider Have someone call your healthcare provider right away if any of the following occur: ??? Drowsinessthat gets worse ??? Weakness or dizziness that gets worse ??? Repeated vomiting ??? Your speech is slurred, and others cannot understand you ??? Severe or ongoing pain from the procedure, not relieved by the pain medicine (if prescribed) ??? Fever of 100.4?? F (38??C) or higher, or as advised by your healthcare provider ??? New rash ?? Call 911 Have someone call 911 if any of the following occur: ??? Trouble breathing ??? Trouble swallowing ??? Chest pain ??? Loss of consciousness or you can't be awakened ?? Last Reviewed Date: 2021 ?? [id number] [employer]. All rights reserved. This information is not intended as a substitute for professional medical care. Always follow your healthcare professional's instructions. ?? History and physical note * Event Display: History and Physical Hospital Authored Date: [id number] EKG study * Event Display: ECG 12-Lead Authored Date: Please click on pdf link to open report * Event Display: ECG 12-Lead Authored Date: Ventricular Rate: 68 BPM Atrial Rate: 68 BPM P-R Interval: 164 ms QRS Duration: 76 ms Q-T Interval: 400 ms QTC Calculation(Bazett): 425 ms P [place]: 71 degrees R [place]: 31 degrees T [place]: 33 degrees Normal sinus rhythm Nonspecific ST abnormality Abnormal ECG When compared with ECG of 01-Nov-2023 11:35, ST elevation now present in Anterior leads Confirmed by CHEY MILLAN MD ([id number]) on 05/01/2024 2:48:47 PM [place]: CHEY MILLAN MD Patient Care team information Care Team Personnel Name: Lindsey Pichardo MD Position: [facility] Physician - Pediatrics Member Role: PCP Address: [address] [place], [place] [id number] Telecom: Name: Preethi Mayorga [facility] [facility] Outreach Member Role: Lifetime Consulting Physician Name: Jef Turner Position: [facility] Outreach Member Role: Lifetime Consulting Physician Care Team Related Persons Name: DEONNA MERCADO Insurance Providers Guarantor name: DEONTE Health Plan Information #: 1 Payer: [facility] POS Member Number: [id number] Policy Number: NA Group Number: NA Health Plan Information #: 2 Payer: [facility] POS Member Number: [id number] Policy Number: NA Group Number: [id number]
--- NOTE | 2024-05-23 08:57 | MHC.PC.OV ---
Vital Signs 05/23/24 09:02 Height 5 ft 2 in Weight 141 lb BMI 25.8 BP 126/58 L Blood Pressure Location Lt brachial Position Sitting Pulse 82 Pulse Source Pulse Oximeter Pulse Oximetry (%) 97 Oxygen Delivery Method Room Air Intake Visit Reasons: bp f/u arthritis GI sx Intake Note: Follow up Labor Relations Director Required: No Allergies erythromycin base Allergy (Intermediate, Verified 05/23/24 08:57) Vomiting Seasonal Allergies Allergy (Intermediate, Verified 05/23/24 08:57) Runny Nose codeine [CODEINE] Allergy (Unknown, Verified 05/23/24 08:57) NAUSEA Medication List - Last Reconciled 05/23/24 by Kiah Sofia PA-C calcium carbonate-vitamin D3 500 mg-10 mcg (400 unit) (Calcium 500 With D) 1 tab PO BID famotidine 20 mg PO BID folic acid 1 mg PO DAILY ibuprofen 200 mg PO Q6H PRN insulin syringe-needle U-100 (BD Insulin Syringe) Use once weekly with methotrexate methotrexate sodium 25 mg subcut QWEEK Tobacco use date assessed: 11/03/23 Dental Screening Dental Screen Date: 11/03/23 HPI bp f/u arthritis GI sx HPI Details Patient is a 73-year-old female with a significant past medical history of rheumatoid arthritis, iron deficiency anemia, osteoarthritis, GERD, diverticulosis, IBS and history of basal cell carcinoma presenting today for a follow up. Overall feeling well and at baseline. She is excited about the holidays as her daughter is coming to visit from [place]. Her grandson, 14 years old, was recently making [employer] houses with her. GI: Has had a double endoscopy for nausea and upset stomach but states that it was normal. This was done earlier this year. It is believes that this is likely related to methotrexate and considered methotrexate flu. Symptoms resolve within 2 days following administration of methotrexate. Heme/onc: She reports JOSIANE and being placed on iron this past year. Musculoskeletal: Follows with rheumatology. Pulm: LDCT pending. PFTs were overall reassuring. Patient did see pulmonology. CV: bp today is 126/58. Recent cardiac cath was neg. We will be following up in 6 months with Cardiology for her aortic stenosis. Mammogram: UTD, would like this done at [place] instead of [place]. Bone density: Up-to-date Colonoscopy: UTD, goes q 5 years Former Smoker: smoked 0.5-1 ppd x 50 years quit 5 years ago. Father had lung ca. PFSH Medical History (Updated 04/06/24 @ 11:13 by Peggy Rodriguez PA-C) [facility] current use of immunosuppressive drug Rheumatoid arthritis (~2020) Osteopenia IBS (irritable bowel syndrome) Personal history of nicotine dependence Periodontal disease Anemia, iron deficiency Intermittent pain and swelling of hand Surgical History History of basal cell carcinoma (BCC) excision History of colonoscopy History of eye surgery History of cataract surgery History of tonsillectomy S/P breast biopsy, right Family History Mother Anemia Breast cancer Hypertension Father Rheumatoid arthritis Lung cancer Hypertension Daughter Thyroid cancer Social History (Updated 05/23/24 @ 08:58 by Yasmeen Vazquez CMA) Household Members Other:: lives alone Housing: House Are you a primary dog daycare provider to a significant other at home: No Do you presently have visiting nurse or other home services: No 75 years or older and lives alone: No Alcohol intake: current Alcohol intake frequency: holidays/special occasions only Alcohol type: hard liquor Patient Tobacco Use Status: Former Tobacco user Years Smoked: (onset 17yo, 1ppd x 51yrs, 50pyh - quit 03/2019) e-Cigarette/Vaping Use: Never Used service: No Current occupational status: retired 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 1. Little interest or pleasure in doing things: not at all 2. Feeling down, depressed, or hopeless: not at all 3. Trouble falling or staying asleep, or sleeping too much: several days 4. Feeling tired or having little energy: several days 5. Poor appetite or overeating: not at all 6. Feeling bad about yourself - or that you are a failure or have let yourself or your family down: not at all 7. Trouble concentrating on things, such as reading the newspaper or watching television: not at all 8. Moving or speaking so slowly that other people could have noticed. Or the opposite - being so fidgety or restless that you have been moving around a lot more than usual: not at all 9. Thoughts that you would be better off or of hurting yourself in some way: not at all Total score: 2 Source: Developed by Drs. Clarence Stacy, Preethi Lea, Phil Figueroa and colleagues, with an educational nga from [employer] [address]. Thrive Questionnaire Date Thrive assessed: 05/16/24 I am a: Patient What is your living situation today?: I have a steady place to live Within the past 12 months, did the food you bought not last and you didn't have the money to get more?: Never true Within the past 12 months, did you worry whether your food would run out before you got money to buy more?: Never true Do you have trouble paying for medicines?: No Do you have trouble getting transportation to medical appointments?: No Do you have trouble paying your heating and electricity bill?: No Do you have trouble taking care of your child, family member or friend?: No Do you have trouble with day-to-day activities such as bathing, preparing meals, shopping, managing finances, etc.?: No Are you currently unemployed and looking for a job?: No Are you interested in more education?: No Please select the resources that you would like help with: None Currently or been in a relationship where the following occur: No concerns reported THRIVE Score: 0 AUDIT C Alcohol Use Questionnaire (AUDIT-C) 1. How often do you have a drink containing alcohol?: 2-4 times a month 2. How many drinks containing alcohol do you have on a typical day when you are drinking?: 1 or 2 3. How often do you have six or more drinks on one occasion?: Never Total Score: 2 LISA-7 AMB Questionnaire LISA-7 Date LISA - 7 assessed: 11/03/23 Feeling nervous, anxious, or on edge: 0 = Not at all Not being able to stop or control worryin = Not at all Worrying too much about different things: 0 = Not at all Trouble relaxin = Not at all Being so restless that it is hard to sit still: 0 = Not at all Becoming easily annoyed or irritable: 0 = Not at all Feeling afraid as if something awful might happen: 0 = Not at all Total LISA-7 score (0-4 normal; 5-9 mild; 10-14 moderate; 15-21 severe): 0 Source: Developed by Drs. Clarence Stacy, Preethi Lea, Phil Figueroa and colleagues, with an educational nga from [employer] [address]. Physical exam (Primary Care) Vital Signs: Last Vital Signs Pulse 82 05/23/24 09:02 BP 126/58 L 05/23/24 09:02 Pulse Ox 97 05/23/24 09:02 Oxygen Delivery Method Room Air 05/23/24 09:02 BMI result Body Mass Index 25.8 Tobacco/Smoking Status: Tobacco use Status Tobacco use date assessed 11/03/23 05/23/24 09:00 Patient Tobacco Use Status Former Tobacco user 05/23/24 09:00 e-Cigarette/Vaping Use Never Used 05/23/24 09:00 PHQ-9: PHQ-9 Score PHQ-9: Total score 2 05/23/24 09:15 Thrive Assessment: Date of Thrive Assessment Date Thrive assessed 05/16/24 05/23/24 09:00 Currently or been in a relationship where the following occur: No concerns reported Const Orientation/consciousness: patient oriented x3 HENMT Ears: hearing grossly normal bilaterally Neck Thyroid: Thyroid normal Lymphatic: no lymphadenopathy noted Resp Auscultation: clear to auscultation bilaterally Cardio Rate: regular rate Rhythm: regular rhythm Heart sounds: S1 normal heart sound present and S2 normal heart sound present GI Inspection: Yes normal to inspection Palpation (GI): Soft to palpation and Other GI palpation findings present (nontender, no cva tenderness) Auscultation: normoactive bowel sounds Rectal Exam - Female: deferred Skin General skin exam: no rashes or lesions noted Neuro General: patient oriented x3, gait normal and no focal motor deficits Coding Level of Care Code Est Pt Level 4 (59947) Complex EM visit Add On G2211 Diagnoses History of basal cell carcinoma (BCC) of skin Z85.828 Rheumatoid arthritis of multiple sites with negative rheumatoid factor M06.09 Rheumatoid arthritis location: multiple sites Rheumatoid factor presence: without rheumatoid factor Atypical chest pain R07.89 Nonrheumatic aortic (valve) stenosis I35.0 Assessment & Plan Assessment & Plan (1) History of basal cell carcinoma (BCC) of skin: Code(s): Z85.828 - Personal history of other malignant neoplasm of skin Category: Medical Plan: Being monitored by [facility] derm. Referral placed (2) Rheumatoid arthritis: Onset Date: ~2020 Comment: Onset May 2021 +++RF+++CCP January,: Methotrexate started. changed to SQ 01/2024 Code(s): M06.9 - Rheumatoid arthritis, unspecified Category: Medical Qualifiers: Rheumatoid arthritis location: multiple sites Rheumatoid factor presence: without rheumatoid factor Qualified Code(s): M06.09 - Rheumatoid arthritis without rheumatoid factor, multiple sites Plan: Following with Rheumatology (3) Atypical chest pain: Code(s): R07.89 - Other chest pain Category: Medical Plan: Has seen cardiology. Had a reassuring cardiac catheterization. Chest pain is actually improved since she was seen this summer. (4) Nonrheumatic aortic (valve) stenosis: Code(s): I35.0 - Nonrheumatic aortic (valve) stenosis Category: Medical Plan: Being followed. Orders: Orders Comprehensive [place]. Panel Fast Today I35.0 - Nonrheumatic aortic (valve) stenosis, M06.09 - Rheumatoid arthritis without rheumatoid factor, multiple sites, R07.89 - Other chest pain Lipid Panel Today I35.0 - Nonrheumatic aortic (valve) stenosis, M06.09 - Rheumatoid arthritis without rheumatoid factor, multiple sites, R07.89 - Other chest pain UA CC w/rflx Micro + Cult Today I35.0 - Nonrheumatic aortic (valve) stenosis, M06.09 - Rheumatoid arthritis without rheumatoid factor, multiple sites, R07.89 - Other chest pain, Z13.220 - Encounter for screening for lipoid disorders MM screening mammo BI Today Z12.31 - Encounter for screening mammogram for malignant neoplasm of breast TSH reflex Free T4 Today I35.0 - Nonrheumatic aortic (valve) stenosis, M06.09 - Rheumatoid arthritis without rheumatoid factor, multiple sites, R07.89 - Other chest pain Referrals Dermatology Referral Z85.828 - Personal history of other malignant neoplasm of skin
[2024-05-23 09:02] VITALS: BP 126/58; PULSE 82; O2SAT 97; BMI 25.8
== END 2024-05-23 09:33 | disposition home or self-care (01) ==
PROVIDERS: PCP Physician Assistant; Visit Provider Physician Assistant
DX: Z85.828 Personal history of other malignant neoplasm of skin (principal); M06.09 Rheumatoid arthritis without rheumatoid factor, multiple sites; R07.89 Other chest pain; I35.0 Nonrheumatic aortic (valve) stenosis

== ENCOUNTER 2024-07-20 10:54 | Outpatient (REF) | payer OTHER, SELFPAY ==
--- OUTSIDE RECORDS SUMMARY | 2024-07-20 11:52 | XMS_ITS | Encounter Summary ---
Author Organization [facility] Address [address] [place] [address] Care Team Providers Care Sustainable Products Marketing Manager Name Role Phone Jose G Shannon MD Primary Care Provider Unavail Lindsey Iverson MD Primary Care Provider Lindsey Matos MD Primary Care Provider Vish Malloy Primary Care Provider [phone] Encounter Details Date Type Department Care Team Description 02/12/2013 Hospital Medical Records [address] [place] [address] Ayaz Zelaya MD Social History Tobacco Use Types Packs/Day Years Used Date Smoking Tobacco: Former Cigarettes 0.3 Q uit: 08/04/2017 Smokeless Tobacco: Never Comments:1/4 to 1/2 ppd Alcohol Use Standard Drinks/Week Comments Yes 0 (1 standard drink = 0.6 oz pur e alcohol) 2 drinks/week Sex Assigned at Date Recorded Not on file Job Start Date Occupation Industry Not on file Not on file Not on file documented as of this encounter Plan of Treatment Not on file documented as of this encounter Visit Diagnoses Not on filedocumented in this encounter Care Teams Sustainable Products Marketing Manager Relationship Specialty Start Date End Date Jose G Shannon MD PCP - General 06/25/06 08/08/13 Lindsey Pichardo MD PCP - General Internal Medicine 08/09/13 10/07/21 Lindsey Pichardo MD PCP - General Internal Medicine 10/08/21 11/25/21 Vish Lopez [address] [place], [place] [id number] PCP - General Internal Medicine 11/26/21 documented as of this encounter
--- OUTSIDE RECORDS SUMMARY | 2024-07-20 11:52 | XMS_ITS | Encounter Summary ---
Author Organization [facility] Address [address] [place] [address] Care Team Providers Care Power Crane Operator Name Role Phone Vish Lopez Primary Care Provider [phone] Encounter Details Date Type Department Care Team Description 09/15/2022 Battery Inspector Report Medical Records [address] [place] [address] Jef Turner MD Social History Tobacco Use Types Packs/Day [...] on filedocumented in this encounter Care Teams Power Crane Operator Relationship Specialty Start Date End Date Vish Lopez [address] [place] [address] PCP - General Internal Medicine 11/26/21 documented as of this encounter
--- OUTSIDE RECORDS SUMMARY | 2024-07-20 11:52 | XMS_ITS | Encounter Summary ---
Author Organization [facility] Address [address] [place] [address] Care Team Providers Care Fire Sprinkler Inspector Name Role Phone Jose G Shannon MD Primary Care Provider Unavail Lindsey Iverson MD Primary Care Provider Lindsey Matos MD Primary Care Provider Vish Malloy Primary Care Provider [phone] Encounter Details Date Type Department Care Team Description 02/14/2013 [facility] Medical Records [address] [place] [address] Ayaz Zelaya MD Social History Tobacco Use [...] on filedocumented in this encounter Care Teams Fire Sprinkler Inspector Relationship Specialty Start Date End Date Jose G Shannon MD PCP - General 06/25/06 08/08/13 Lindsey Pichardo MD PCP - General Internal Medicine 08/09/13 10/07/21 Lindsey Pichardo MD PCP - General Internal Medicine 10/08/21 11/25/21 Vish Lopez [address] [place], [place] [id number] PCP - General Internal Medicine 11/26/21 documented as of this encounter
--- OUTSIDE RECORDS SUMMARY | 2024-07-20 11:52 | XMS_ITS | Encounter Summary ---
Author Organization [facility] Address [address] [place] [address] Care Team Providers Care Manager Of Enterprise Name Role Phone Lindsey Pichardo MD Primary Care Provider Lindsey Matos MD Primary Care Provider Vish Malloy Primary Care Provider [phone] Encounter Details Date Type Department Care Team Description 06/05/2019 Hospital Medical Records [address] [place] [address] Social History Tobacco Use Types Packs/Day Years Used Date Smoking Tobacco: Former Cigarettes 0.3 Q uit: 08/04/2017 Smokeless Tobacco: Never Comments:06/09 to 1/2 ppd Alcohol Use Standard Drinks/Week Comments Yes 0 (1 standard drink = 0.6 oz pur e alcohol) 2 drinks/week Sex Assigned at Date Recorded Not on file Job Start Date Occupation Industry Not on file Not on file Not on file documented as of this encounter Plan of Treatment Not on file documented as of this encounter Procedures Procedure Name Priority Date/Time Associated Diagnosis Comments OUTSIDE PLAIN FILM Routine 06/05/2019 OUTSIDE LAB Routine 06/05/2019 documented in this encounter Results * OUTSIDE PLAIN FILM (06/05/2019) Provider Abstract RADIOLOGY * OUTSIDE LAB (06/05/2019) Provider Abstract LAB documented in this encounter Visit Diagnoses Not on filedocumented in this encounter Care Teams Manager Of Enterprise Relationship Specialty Start Date End Date Lindsey Pichardo MD PCP - General Internal Medicine 08/09/13 10/07/21 Lindsey Pichardo MD PCP - General Internal Medicine 10/08/21 11/25/21 Vish Lopez [address] [place] [id number] PCP - General Internal Medicine 11/26/21 documented as of this encounter
--- OUTSIDE RECORDS SUMMARY | 2024-07-20 11:52 | XMS_ITS | Encounter Summary ---
Author Organization [facility] Address [address] [place] [address] Care Team Providers Care Stablehand Name Role Phone Vish Lopez Primary Care Provider [phone] Encounter Details Date Type Department Care Team Description 12/16/2022 R[place] Report Medical Records [address] [place] [address] Jef Turner MD Social History Tobacco Use [...] file Not on file Not on file COVID-19 Exposure Response Date Recorded In the last 10 days, have yo u been in contact with someone who was confirmed or suspected to have Coronavirus/COVID-19? No / Unsure 12/08/2022 9:14 AM EDT documented as of this encounter Plan of Treatment Not on file documented as of this encounter Visit Diagnoses Not on filedocumented in this encounter Care Teams Stablehand Relationship Specialty Start Date End Date Vish Lopez [address] [place] [id number] PCP - General Internal Medicine 11/26/21 documented as of this encounter
--- OUTSIDE RECORDS SUMMARY | 2024-07-20 11:52 | XMS_ITS | Encounter Summary ---
Author Organization [facility] Address [address] [place] [address] Care Team Providers Care Preparing Box Tender Name Role Phone Lindsey Pichardo MD Primary Care Provider Lindsey Matos MD Primary Care Provider Vish Malloy Primary Care Provider [phone] Encounter Details Date Type Department Care Team Description 01/28/2016 Director Oncology Report Medical Records [address] [place] [address] Winnie Dennis Social History Tobacco Use Types Packs/Day Years Used Date Smoking Tobacco: Former Cigarettes 0.3 Q uit: 06/01/2010 Smokeless Tobacco: Never Comments:/4 to 1/ ppd Alcohol Use Standard Drinks/Week Comments Yes 0 (1 standard drink = 0.6 oz pure alcohol) beer/wine or mixed drinks 3-4/week (bottle of wine lasts 1 week); fridays 1 bottle of wine (more on weekend) Sex Assigned at Date Recorded Not on file Job Start Date Occupation Industry Not on file Not on file Not on file documented as of this encounter Plan of Treatment Not on file documented as of this encounter Visit Diagnoses Not on filedocumented in this encounter Care Teams Preparing Box Tender Relationship Specialty Start Date End Date Lindsey Pichardo MD PCP - General Internal Medicine 08/09/13 10/07/21 Lindsey Pichardo MD PCP - General Internal Medicine 10/08/21 11/25/21 Vish Lopez [address] [place] [id number] PCP - General Internal Medicine 11/26/21 documented as of this encounter
--- OUTSIDE RECORDS SUMMARY | 2024-07-20 11:52 | XMS_ITS | Encounter Summary ---
Author Organization [facility] Address [address] [place] [address] Care Team Providers Care Farm Butcher Name Role Phone Lindsey Pichardo MD Primary Care Provider Lindsey Matos MD Primary Care Provider Vish Malloy Primary Care Provider [phone] Encounter Details Date Type Department Care Team Description 12/28/2017 Substation Electrician Report Medical Records [address] [place] [address] Markell Madera PA-C Social History Tobacco Use Types Packs/Day Years Used Date Smoking Tobacco: Former Cigarettes 0.3 Q uit: 08/04/2017 Smokeless Tobacco: Never Comments:4 to 1/ ppd Alcohol Use Standard Drinks/Week [...] on filedocumented in this encounter Care Teams Farm Butcher Relationship Specialty Start Date End Date Lindsey Pichardo MD PCP - General Internal Medicine 08/09/13 10/07/21 Lindsey Pichardo MD PCP - General Internal Medicine 10/08/21 11/25/21 Vish Lopez [address] [place] [address] PCP - General Internal Medicine 11/26/21 documented as of this encounter
--- OUTSIDE RECORDS SUMMARY | 2024-07-20 11:52 | XMS_ITS | Encounter Summary ---
Author Organization [facility] Address [address] [place] [address] Care Team Providers Care Kiln Maintenance Name Role Phone Vish Lopez Primary Care Provider [phone] Encounter Details Date Type Department Care Team Description 02/05/2022 Orders Only Adult Medicine [address] [address] Vish Lopez [address] [place] [phone] Social History Tobacco Use Types Packs/Day Years [...] suspected to have Coronavirus/COVID-19? No / Unsure 02/04/2022 1:35 PM EDT documented as of this encounter Plan of Treatment Not on file documented as of this encounter Visit Diagnoses Not on filedocumented in this encounter Care Teams Kiln Maintenance Relationship Specialty Start Date End Date Vish Lopez [address] [place] [id number] PCP - General Internal Medicine 11/26/21 documented as of this encounter
== END 2024-07-20 10:55 | disposition home or self-care (01) ==
LOC: HO.MAMMO 10:54
PROVIDERS: PCP Physician Assistant; Visit Provider Physician Assistant
DX: Z12.31 Encounter for screening mammogram for malignant neoplasm of breast (principal)
CPT/HCPCS: 77063; 77067

== ENCOUNTER → 2024-07-20 11:15 | Outpatient (BNV) | payer OTHER, SELFPAY | PROVIDERS: PCP Physician Assistant; Visit Provider Internal Medicine | DX: Z12.31 Encounter for screening mammogram for malignant neoplasm of breast (principal) | CPT/HCPCS: 77063; 77067 ==

== ENCOUNTER 2024-07-25 15:12 | Outpatient (REF) | payer OTHER, SELFPAY ==
--- OUTSIDE RECORDS SUMMARY | 2024-07-25 15:15 | XMS_ITS | Encounter Summary ---
Author Organization [facility] Address [address] [place] [address] Care Team Providers Care Log Hooker Name Role Phone Jose G Shannon MD Primary Care Provider Unavail Lindsey Iverson MD Primary Care Provider Lindsey Matos MD Primary Care Provider Vish Malloy Primary Care Provider Encounter Details Date Type Department Care Team Description 02/14/2013 [facility] Medical Records [address] [place] [address] Abstract, Provider Social History Tobacco Use Types Packs/Day Years Used Date Smoking Tobacco: Some Days Cigarettes 0.3 Last attempted to quit: 06/01/2010 Smokeless Tobacco: Never Comments:Quit Feb 2011 Alcohol Use Standard Drinks/Week Comments Yes 0 (1 standard drink = 0.6 oz pure alcohol) beer/wine or mixed drinks 3x/week Sex Assigned at Date Recorded Not on file Job Start Date Occupation Industry Not on file Not on file Not on file documented as of this encounter Plan of Treatment Not on file documented as of this encounter Procedures Procedure Name Priority Date/Time Associated Diagnosis Comments OUTSIDE EKG Routine 02/14/2013 documented in this encounter Results * OUTSIDE EKG (02/14/2013) Provider Abstract CARDIOLOGY documented in this encounter Visit Diagnoses Not on filedocumented in this encounter Care Teams Log Hooker Relationship Specialty Start Date End Date Jose G Shannon MD PCP - General 06/25/06 08/08/13 Lindsey Pichardo MD PCP - General Internal Medicine 08/09/13 10/07/21 Lindsey Pichardo MD PCP - General Internal Medicine 10/08/21 11/25/21 Vish Lopez [address] [place] [id number] PCP - General Internal Medicine 11/26/21 documented as of this encounter
--- OUTSIDE RECORDS SUMMARY | 2024-07-25 15:15 | XMS_ITS | Clinical Summary ---
Author Organization [facility] Address [address] [place] [address] Care Team Providers Care Cellophane Tester Name Role Phone Vish Lopez Primary Care Provider [phone] Allergies Active Allergy Reactions Severity Noted Date Comments Codeine Nausea and Vomiting Medium 01/05/2007 Erythromycin Nausea and Vomiting 02/14/2020 Seasonal Runny Nose/Rhinitis 07/09/2011 Medications Medication Sig Dispensed Refills Start Date End Date Status Methotrexate Sodium 2.5 MG Tab Take 6 Tablets by mouth once a week. 0 01/27/2022 Active folic acid (FOLVITE) 1 MG tablet Take 1 mg by mouth daily. 0 01/26/2022 Active Acetaminophen (TYLENOL 8 HOUR OR) Take by mouth as needed. 0 Active Colestipol HCl 1 g Tab Take 2 Tablets by mouth 2 times daily (with meals) for 90 days. 120 Tablet 2 06/09/2022 Active Calcium Carb-Cholecalcifero l (Calcium 500 +D) 500-10 MG-MCG Tab Take 1 Tablet by mouth 2 times daily. 180 Tablet 1 07/07/2022 Active vitamin B-12 (CYANOCOBALAMIN) 500 MCG tablet TAKE 1 TABLET BY MOUTH DAILY 90 Tablet 1 08/07/2023 Active famotidine (PEPCID) 20 MG tablet Take 1 Tablet by mouth daily. 0 Active dicyclomine (BENTYL) 10 MG capsule Take 1 Capsule by mouth 3 times daily as needed (Abdominal pain). 90 Capsule 1 08/10/2023 Active ferrous sulfate 325 (65 Fe) MG tablet Take 1 Tablet by mouth daily. 90 Tablet 1 08/16/2023 09/09/2024 Active docusate sodium (Colace) 100 MG capsule Take 1 Capsule by mouth 2 times daily. 60 Capsule 5 08/16/2023 Active Active Problems Problem Noted Date Bilateral primary osteoarthritis of knee 08/10/2023 Vitamin B12 deficiency 07/07/2022 Gastroesophageal reflux disease without esophagitis 07/07/2022 Rheumatoid arthritis 07/07/2022 Osteopenia 06/17/2020 External hemorrhoid, thrombosed 01/24/20 18 Overview: See CN report Diverticulosis 01/23/2018 Overview: On CN Internal hemorrhoids 01/23/2018 Overview: On CN Hearing loss in left ear 05/19/2016 History of basal cell carcinoma of skin 01/11/2013 Overview: BCC 01/16 nose (superficial & nodular) Hyperlipidemia 04/06/2010 Irritable bowel syndrome 02/01/2007 Anemia 02/01/2007 Overview: IMO Update Fall 2015 Tobacco use disorder 01/05/2007 Colon polyp Overview: CN q5y Immunizations Name Administration Dates Next Due COVID-19 ([place]) Pt Reported 03/31/2021, 021,09/03/2020 Influenza vaccine high dose age 65 and over 0 10/2019 Pneumoccoccal(Adult) Polysaccharide PPSV23 04/10 Shingrix (Recombinant zoster vaccine) 03/13/2021 TETANUS/DIPTHERIA (ADULT) 03/04/2003 Tdap 06/10/2010 Zostavax 01/29/2013 Family History Medical History Relation Name Comments Allergies Daughter 2 rashed being tx Thyroid cancer Daughter 3 had thyroidec iveth Arthritis Father RA Cancer of the Lung Father smoker Hypertension Father Anemia Mother 50ish CA Breast Mother 50ish Hypertension Mother 50ish being tx CA Colon Negative Hx CA Ovarian Negative Hx Uterine Cancer Negative Hx Relation Name Status Comments Brother Alive 1 brother good health Daughter 1 Alive 1 daughter rima rgies, papillary thyroid cancer Daughter 2 Daughter 3 Father (Age 78) FTT, LUNG Mass, emphysema, ESOPH/ILCER BLEED, DIVERTICULOSIS,DM Maternal Grandfather Maternal Grandmother UK Mother 50ish (Age 87) BREAST CA, DIVERTICULITIS, HTN; CHF Other 40 Paternal Grandfather (Age 84) MYRA NG CA Paternal Grandmother CAD Sister 1 Alive 1 sister smoker Sister 2 (Age 3) CONGENITAL HEART DZ Son Alive 2 sons both hea lthy 1 smoker Social History Tobacco Use Types Packs/Day Years Used Date Smoking Tobacco: Former Cigarettes 0.3 Q uit: 08/04/2017 Smokeless Tobacco: Never Tobacco Cessation:Counseling Given: Not Answered Comments:06/09 to 06/07 ppd Alcohol Use Standard Drinks/Week Comments Yes 0 (1 standard drink = 0.6 oz pur e alcohol) 2 drinks/week Sex Assigned at Date Recorded Not on file Job Start Date Occupation Industry Not on file Not on file Not on file Last Filed Vital Signs Vital Sign Reading Time Taken Comments Blood Pressure 130/76 02/10/2023 2:20 PM EDT Pulse 74 02/10/2023 2:20 PM EDT Temperature 36.4 ??C (97.6 ??F) 02/10/2023 2:20 PM ED T Respiratory Rate 16 02/10/2023 2:20 PM EDT Oxygen Saturation 99% 06/09/2022 9:05 AM EST Inhaled Oxygen Concentration - - Weight 62.6 kg (138 lb) 02/10/2023 2:20 PM EDT Height 165.1 cm (5' 5 ) 08/10/2023 1:18 PM EST Body Mass Index 22.96 02/10/2023 2:20 PM EDT Plan of Treatment Health Maintenance Due Date Last Done Comments DTAP/TDAP/TD (2 - Td or Tdap) 06/10/2020 06/10/2010 PNEUMOCOCCAL VACCINE (2 - PCV) 04/10/2021 1 06/10/2019 (Completed), 04/10/2020 SHINGLES VACCINE (3 of 3) 05/08/2021 03/13/2021, BONE DENSITY SCREENING 06/16/2022 , 05/11/2011, 01/31/2008 COLON CANCER SCREENING 01/19/2023 01/19/2018, 2011 Covid-19 Vaccine (2022-2 4 season) 2024 03/31/2021, 09/24/2020, 09/03/2020 INFLUENZA (#1) 2024 04/10/2020 (Comp leted), 04/10/2020 MAMMOGRAM 07/08/2024 07/08/2023, 06/08, 06/30/2021, Additional history exists CHOLESTEROL SCREENING 08/15/2028 08/16/2023 , 02/04/2022, 04/16/2020, Additional history exists HEPATITIS C SCREENING Completed 11/27/2015 Care Teams Cellophane Tester Relationship Specialty Start Date End Date Vish Lopez [address] [place] [address] PCP - General Internal Medicine 11/26/21
--- OUTSIDE RECORDS SUMMARY | 2024-07-25 15:15 | XMS_ITS | Encounter Summary ---
Author Organization [facility] Address [address] [place] [address] Care Team Providers Care Electrical Tryout Person Name Role Phone Jose G Shannon MD Primary Care Provider Unavail Lindsey Iverson MD Primary Care Provider Lindsey Matos MD Primary Care Provider Vish Malloy Primary Care Provider [phone] Encounter Details Date Type Department Care Team Description 02/12/2013 Hospital Medical Records [address] [place] [address] Ayaz Zelaya MD Social History Tobacco Use [...] on filedocumented in this encounter Care Teams Electrical Tryout Person Relationship Specialty Start Date End Date Jose G Shannon MD PCP - General 06/25/06 08/08/13 Lindsey Pichardo MD PCP - General Internal Medicine 08/09/13 10/07/21 Lindsey Pichardo MD PCP - General Internal Medicine 10/08/21 11/25/21 Vish Lopez [address] [place], [place] [id number] PCP - General Internal Medicine 11/26/21 documented as of this encounter
--- OUTSIDE RECORDS SUMMARY | 2024-07-25 15:15 | XMS_ITS | Encounter Summary ---
Author Organization [facility] Address [address] [place] [address] Care Team Providers Care Career Services Director Name Role Phone Jose G Shannon MD Primary Care Provider Unavail Lindsey Iverson MD Primary Care Provider Lindsey Matos MD Primary Care Provider Vish Malloy Primary Care Provider [phone] Encounter Details Date Type Department Care Team Description 02/14/2013 [facility] Medical Records [address] [place] [address] Ayaz Zelaya MD Social History Tobacco Use [...] on filedocumented in this encounter Care Teams Career Services Director Relationship Specialty Start Date End Date Jose G Shannon MD PCP - General 06/25/06 08/08/13 Lindsey Pichardo MD PCP - General Internal Medicine 08/09/13 10/07/21 Lindsey Pichardo MD PCP - General Internal Medicine 10/08/21 11/25/21 Vish Lopez [address] [place], [place] [id number] PCP - General Internal Medicine 11/26/21 documented as of this encounter
--- OUTSIDE RECORDS SUMMARY | 2024-07-25 15:15 | XMS_ITS | Encounter Summary ---
Author Organization [facility] Address [address] [place] [address] Care Team Providers Care Client Service Associate Name Role Phone Lindsey Pichardo MD Primary Care Provider Lindsey Matos MD Primary Care Provider Vish Malloy Primary Care Provider [phone] Encounter Details Date Type Department Care Team Description 01/28/2016 Vice President Underwriting Report Medical Records [address] [place] [address] Winnie Dennis Social History Tobacco Use Types [...] on filedocumented in this encounter Care Teams Client Service Associate Relationship Specialty Start Date End Date Lindsey Pichardo MD PCP - General Internal Medicine 08/09/13 10/07/21 Lindsey Pichardo MD PCP - General Internal Medicine 10/08/21 11/25/21 Vish Lopez [address] [place] [id number] PCP - General Internal Medicine 11/26/21 documented as of this encounter
--- OUTSIDE RECORDS SUMMARY | 2024-07-25 15:15 | XMS_ITS | Encounter Summary ---
Author Organization [facility] Address [address] [place] [address] Care Team Providers Care Spray Drier Name Role Phone Vish Lopez Primary Care Provider [phone] Encounter Details Date Type Department Care Team Description 12/16/2022 Orthophotography Technician Report Medical Records [address] [place] [address] Jef Turner MD Social History Tobacco Use [...] on filedocumented in this encounter Care Teams Spray Drier Relationship Specialty Start Date End Date Vish Lopez [address] [place] [id number] PCP - General Internal Medicine 11/26/21 documented as of this encounter
--- OUTSIDE RECORDS SUMMARY | 2024-07-25 15:15 | XMS_ITS | Encounter Summary ---
Author Organization [facility] Address [address] [place] [address] Care Team Providers Care Stereo Compiler Name Role Phone Vish Lopez Primary Care Provider Encounter Details Date Type Department Care Team Description 09/15/2022 Nissan Sales Consultant Report Medical Records [address] [place] [address] Jef Turner MD Social History Tobacco Use [...] on filedocumented in this encounter Care Teams Stereo Compiler Relationship Specialty Start Date End Date Vish Lopez [address] [place] [address] PCP - General Internal Medicine 11/26/21 documented as of this encounter
--- OUTSIDE RECORDS SUMMARY | 2024-07-25 15:15 | XMS_ITS | Encounter Summary ---
Author Organization [facility] Address [address] [place] [address] Care Team Providers Care A/C Technician Name Role Phone Vish Lopez Primary Care Provider [phone] Encounter Details Date Type Department Care Team Description 02/05/2022 Orders Only Adult Medicine [address] [address] Vish Lopez [address] [place] [address] [id number] Social History Tobacco Use Types Packs/Day Years [...] on filedocumented in this encounter Care Teams A/C Technician Relationship Specialty Start Date End Date Vish Lopez [address] [place] [id number] PCP - General Internal Medicine 11/26/21 documented as of this encounter
--- OUTSIDE RECORDS SUMMARY | 2024-07-25 15:15 | XMS_ITS | Encounter Summary ---
Author Organization [facility] Address [address] [place] [address] Care Team Providers Care P 3 Armament/Ordnance Ima Technician Name Role Phone Lindsey Pichardo MD Primary Care Provider Lindsey Matos MD Primary Care Provider Vish Malloy Primary Care Provider [phone] Encounter Details Date Type Department Care Team Description 12/28/2017 Dining Room Host Report Medical Records [address] [place] [address] Markell Madera PA-C Social History Tobacco Use [...] on filedocumented in this encounter Care Teams P 3 Armament/Ordnance Ima Technician Relationship Specialty Start Date End Date Lindsey Pichardo MD PCP - General Internal Medicine 08/09/13 10/07/21 Lindsey Pichardo MD PCP - General Internal Medicine 10/08/21 11/25/21 Vish Lopez [address] [place] [address] PCP - General Internal Medicine 11/26/21 documented as of this encounter
--- OUTSIDE RECORDS SUMMARY | 2024-07-25 15:15 | XMS_ITS | Encounter Summary ---
Author Organization [facility] Address [address] [place] [address] Care Team Providers Care Hotel Operations Manager Name Role Phone Jose G Shannon MD Primary Care Provider Lindsey Thao MD Primary Care Provider Lindsey Matos MD Primary Care Provider Vish Malloy Primary Care Provider [phone] Encounter Details Date Type Department Care Team Description 06/23/2010 [facility] Medical Records [address] [place] [address] Clifford Christensen MD Social History Tobacco Use Types Packs/Day [...] on filedocumented in this encounter Care Teams Hotel Operations Manager Relationship Specialty Start Date End Date Jose G Shannon MD PCP - General 06/25/06 08/08/13 Lindsey Pichardo MD PCP - General Internal Medicine 08/09/13 10/07/21 Lindsey Pichardo MD PCP - General Internal Medicine 10/08/21 11/25/21 Vish Lopez [address] [place] [address] PCP - General Internal Medicine 11/26/21 documented as of this encounter
[2024-07-25 18:04] LABS: MANUAL DIFF FLAG NO
[2024-07-25 18:29] LABS: Alanine Aminotransferase 32 U/L (0-31); Alkaline Phosphatase 112 U/L (39-117); Anion Gap 10 (12-20); Aspartate Amino Transferase 34 U/L (5-31); Bilirubin Total 0.3 mg/dL (0.0-1.0); Blood Urea Nitrogen 13 mg/dL (9-16); C Reactive Protein 0.43 mg/dL (< or = 0.50); Calcium 9.2 mg/dL (8.4-10.2); Carbon Dioxide 28 mmol/L (22-29); Chloride 104 mmol/L (96-108); Estimated Glomerular Filt Rate > 60; Glucose Random 85 mg/dL (60-115); Potassium 4.1 mmol/L (3.3-5.1); Sodium 138 mmol/L (135-145); Total Protein 7.7 g/dL (6.5-8.0)
[2024-07-25 18:31] LABS: Basophils Absolute Auto 0.1 X10*3/uL (0.0-0.2); Basophils Percent Auto 1.1 % (0-2); Eosinophils Absolute Auto 0.2 X10*3/uL (0.0-0.4); Eosinophils Percent Auto 2.5 % (0-4); Hematocrit 32.4 % (37.0-47.0); Hemoglobin 10.8 g/dl (12.0-16.0); Imm Gran Abs Auto 0.02 X10*3/uL (0.00-0.03); Imm Gran Pct Auto 0.3 % (0.0-0.4); Lymphocytes Absolute Auto 1.3 X10*3/uL (1.2-4.9); Lymphocytes Percent Auto 20.5 % (20-40); Mean Corpuscular HGB Conc 33.3 g/dl (31.0-35.0); Mean Corpuscular Hemoglobin 29.9 pg (27.0-33.0); Mean Corpuscular Volume 89.8 fL (80.0-98.0); Mean Platelet Volume 9.2 fL (9.4-12.3); Monocytes Absolute Auto 0.4 X10*3/uL (0.1-1.2); Monocytes Percent Auto 5.6 % (2-11); Neutrophils Absolute Auto 4.4 x10*3/uL (2.0-8.3); Platelet Count 340 X10*3/uL (160-400); Red Blood Count 3.61 X10*6/uL (4.20-5.50); Red Cell Distribution Width 13.8 % (11.0-16.0); White Blood Count 6.3 X10*3/uL (4.8-10.8)
[2024-07-25 18:54] LABS: Erythrocyte Sedimentation Rate 58 MM/HR (0-20)
[2024-07-27 23:53] LABS: Vitamin D 25-OH, D2 <4 ng/mL; Vitamin D 25-OH, D3 34 ng/mL; Vitamin D 25-OH, Total 34 ng/mL (30-100)
== END 2024-07-25 15:13 | disposition home or self-care (01) ==
LOC: HO.WFDLDS 15:12
PROVIDERS: Visit Provider Student in an Organized Health Care Education/Training Program
DX: M06.09 Rheumatoid arthritis without rheumatoid factor, multiple sites (principal); E55.9 Vitamin D deficiency, unspecified; Z79.899 Other long term (current) drug therapy
CPT/HCPCS: 36415; 80053; 82306; 85025; 85652; 86140

== ENCOUNTER 2024-08-16 09:11 | Outpatient (AMB) | payer OTHER, SELFPAY ==
--- NOTE | 2024-08-16 09:16 | MHC.OFFVIS ---
Vital Signs 08/16/24 09:24 Height 5 ft 2 in Weight 140 lb 3.424 oz BMI 25.6 BP 140/78 H Blood Pressure Location Lt brachial Position Sitting Pulse 89 Pulse Source Pulse Oximeter Pulse Oximetry (%) 97 Oxygen Delivery Method Room Air Intake Visit Reasons: RA Intake Note: Patient presents for RA. Allergies erythromycin base Allergy (Intermediate, Verified 08/16/24 09:21) Vomiting Seasonal Allergies Allergy (Intermediate, Verified 08/16/24 09:21) Runny Nose codeine [CODEINE] Allergy (Unknown, Verified 08/16/24 09:21) NAUSEA Medication List - Last Reconciled 08/16/24 by Genie Lopes MD calcium carbonate-vitamin D3 500 mg-10 mcg (400 unit) (Calcium 500 With D) 1 tab PO BID famotidine 20 mg PO BID folic acid 1 mg PO DAILY ibuprofen 200 mg PO Q6H PRN insulin syringe-needle U-100 (BD Insulin Syringe) Use once weekly with methotrexate methotrexate sodium (PF) 25 mg subcut QWEEK HPI Comments Details: Patient is a 74-year-old female with nonrheumatic aortic stenosis, polyarticular osteoarthritis, GERD, osteopenia and rheumatoid arthritis here today for follow up Interval History: Patient last seen 03/30/[address] Salomon. At that time she was taking methotrexate 25 mg subcutaneously once a week as well as folic acid. She noticed improvement on this regimen and reported that her flare-ups are now very few and far between and lasting less than a day. Still gets some GI upset with the methotrexate but it is manageable. Her main complaint at that time was her bilateral knee pain from her osteoarthritis. Today, She is complaining of the GI symtoms associated with the Mtx: nausea, vomiting, diarrhea. And bilateral knee pain worse with activity Rheumatologic History: Onset May 2021 +++RF+++CCP January,: Methotrexate started. changed to SQ 01/2024 Current Rheumatology Medication(s): Methotrexate 25 mg subcutaneous once a week Folic acid 1 mg daily [facility] Medical History (Updated 08/16/24 @ 09:49 by Genie Lopes MD) [facility]FP current use of immunosuppressive drug Rheumatoid arthritis (~2020) Osteopenia IBS (irritable bowel syndrome) Personal history of nicotine dependence Periodontal disease Anemia, iron deficiency Intermittent pain and swelling of hand Surgical History History of basal cell carcinoma (BCC) excision History of colonoscopy History of eye surgery History of cataract surgery History of tonsillectomy S/P breast biopsy, right Family History (Updated 08/16/24 @ 09:23 by GULSHAN Alston) Mother Anemia Breast cancer Hypertension Father Rheumatoid arthritis Lung cancer Hypertension Daughter Thyroid cancer Sister Parkinsons disease Social History Household Members Other:: lives alone Housing: House Are you a primary child care group leader to a significant other at home: No Do you presently have visiting nurse or other home services: No Alcohol intake: current Alcohol intake frequency: holidays/special occasions only Alcohol type: hard liquor Patient Tobacco Use Status: Former Tobacco user Years Smoked: (onset 17yo, 1ppd x 51yrs, 50pyh - quit 03/2019) e-Cigarette/Vaping Use: Never Used service: No Current occupational status: retired 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 Current occupational exposures/hazards: No Cognitive needs: No Hearing needs: Yes (some hearing loss) Vision needs: Yes (glasses) Review of Systems Const Details: Review of Systems Constitutional: Denies fever, chills, weight loss ENT: Denies vision changes, eye pain or eye redness, dental caries, dry mouth GI: Denies nausea, vomiting, diarrhea, abdominal pain, change in BM Pulm: Denies SOB, MALIK, hemoptysis, wheezing Cards: Denies chest pain, palpitations Skin: Denies Raynaud's, rash, nail changes, photosensitivity, LEAD SOFTWARE ENGINEER: Denies headaches, weakness, paresthesias, recurrent falls MSK: as per HPI All other systems reviewed and are unremarkable except noted above Physical Exam Vital Signs: Last Vital Signs Pulse 89 08/16/24 09:24 BP 140/78 H 08/16/24 09:24 Pulse Ox 97 08/16/24 09:24 Oxygen Delivery Method Room Air 08/16/24 09:24 BMI result Body Mass Index 25.6 Vital signs reviewed Physical Examination CONSTITUITIONAL Patient alert and cooperative. Well appearing and in no apparent painful distress HEENT Conjunctiva and sclera clear. Pupils equal round and reactive to light. No lymphadenopathy. CHEST/RESPIRATORY SYSTEM Normal respiratory effort and able to speak in complete sentences. Clear to auscultation bilaterally. No crackles, rales, rhonchi, wheezes heard. CARDIAC SYSTEM Regular rate and rhythm. 3/6 systolic murmur. Radial pulses intact bilaterally MSK Hands: Good music agent strength bilaterally. No deformities noted. No synovitis noted to the MCPs, PIPs or DIPs. No tenderness to palpation of these joints. Heberden's nodes noted throughout Wrists: Full range of motion at the wrists without pain. No tenderness to palpation or synovitis noted to the wrists. Elbows: Full range of motion without pain. No tenderness, weakness, swelling, increased warmth or erythema. Shoulders: Full range of motion without pain. No tenderness, weakness, swelling, increased warmth or erythema. Hips: Full range of motion without pain. Hip bursa: No tenderness to palpation Knees: Full range of motion. No tenderness, swelling, increased warmth or erythema. crepitations felt bilaterally Ankles: Full range of motion. No tenderness, swelling, increased warmth or erythema.? Feet: Negative squeeze test. No tenderness to palpation or swelling of the MTPs. Tender points:?No tenderness to palpation of the bilateral trapezius, supraspinatus, greater trochanters, anterior costochondral junctions, bilateral gluteal areas, bilateral suboccipital muscle insertions SKIN Skin intact without rashes. Office Procedures AMB Joint Injection/Aspiration Joint Injection/Aspiration Details: Procedure was explained to the patient and consent was obtained. The area of interest was identified and confirmed with patient. This was subsequently cleaned with chlorhexidine x3. The area was then anesthetized using ethyl chloride spray. 40 mg Kenalog with 1 cc 1% lidocaine was injected without issue. Minimal to no bleeding. Patient tolerated procedure. Primary Site: left knee Prep: site was prepped using aseptic technique and ethochloride spray was applied Injected: 40 mg of, Kenalog, with 1 mL of and 1% plain lidocaine Approach Used: anterior Procedure: The patient tolerated the procedure well Coding 06778 - Large joint Procedure code (CPT) selection complete AMB Joint Injection/Aspiration Joint Injection/Aspiration Details: Procedure was explained to the patient and consent was obtained. The area of interest was identified and confirmed with patient. This was subsequently cleaned with chlorhexidine x3. The area was then anesthetized using ethyl chloride spray. 40 mg Kenalog with 1 cc 1% lidocaine was injected without issue. Minimal to no bleeding. Patient tolerated procedure. Primary Site: right knee Prep: site was prepped using aseptic technique and ethochloride spray was applied Injected: 40 mg of, Kenalog, with 1 mL of and 1% plain lidocaine Approach Used: anterior Procedure: The patient tolerated the procedure well Coding 75450 - Large joint Procedure code (CPT) selection complete Office Meds lidocaine (PF) 10 mg/mL (1 %) injection solution Performing Provider: Genie Lopes MD Performing Location: [facility] [facility] Administered by: Genie Lopes MD on 08/16/24 13:58 Dose Route Admin Location Dispensed Lot Number Expiration Date [facility] Filenet P8 Developer 1 mL Infiltration left knee 2 mL [id number] 09/04/26 34711-332-01 [employer]ESEN[employer] K[employer] Kenalog 40 mg/mL suspension for injection Performing Provider: Genie Lopes MD Performing Location: [facility] [place] [facility] Administered by: Genie Lopes MD on 08/16/24 13:58 Dose Route Admin Location Dispensed Lot Number Expiration Date [facility] [employer] P8 Developer 40 mg intra-articular left knee 1 mL [id number] 12/04/25 [address]-4 [employer] lidocaine (PF) 10 mg/mL (1 %) injection solution Performing Provider: Genie Lopes MD Performing Location: [facility] [place] [facility] Administered by: Genie Lopes MD on 08/16/24 13:58 Dose Route Admin Location Dispensed Lot Number Expiration Date [facility] [employer] P8 Developer 1 mL Infiltration right knee 2 mL [id number] 09/04/26 97847-906-48 FRESENIUS KABI Kenalog 40 mg/mL suspension for injection Performing Provider: Genie Lopes MD Performing Location: [facility] [place] [facility] Administered by: Genie Lopes MD on 08/16/24 13:58 Dose Route Admin Location Dispensed Lot Number Expiration Date [facility] [employer] P8 Developer 40 mg intra-articular right knee 1 mL [id number] 12/04/25 [address]-6 [employer] Results Reviewed Results Reviewed: Laboratory Tests 03/21/24 07/25/24 11:26 15:13 WBC 6.3 RBC 3.61 L Hgb 10.8 L Hct 32.4 L ESR 58 H Sodium 138 Potassium 4.1 Chloride 104 Carbon Dioxide 28 BUN 13 Creatinine 0.57 Random Glucose 85 AST 24 34 H ALT 21 32 H Alkaline Phosphatase 112 C-Reactive Protein 0.43 25-OH Vitamin D Total 34 08/16/24 10:42 Sodium 139 Potassium 4.2 Chloride 105 Carbon Dioxide 28 BUN 14 Creatinine 0.67 Calcium 9.4 Total Bilirubin 0.6 AST 27 ALT 27 Alkaline Phosphatase 112 Immunology labs 01/13/22 11:14 Rheumatoid Factor 362.0 H Cycl Citrul Peptide IgG >250 H infectious serologies 11/21/23 08:12 Hepatitis A IgM Ab Nonreactive Hep Bs Antigen Negative Hep Bs Antibody NONREACTIVE Hep B Core Total Ab Nonreactive Hepatitis C Ab (EIA) Nonreactive TB Test (T-Spot) Com Negative DEXA 12/2023 FINDINGS: LEFT FEMUR, NECK: BMD 0.862 g/cm2, Z-score 0.5, T-score -1.3, osteopenia. LEFT FEMUR, TOTAL: BMD 0.899 g/cm2, Z-score 0.7, T-score -0.9, normal. AP SPINE L1-L4: BMD 0.892 g/cm2, Z-score -0.7, T-score -2.4, osteopenia. FRAX: Major osteoporotic fracture (clinical spine, forearm, hip or shoulder) 12.9%. Hip fracture 2.1%. Assessment & Plan Assessment & Plan (1) Rheumatoid arthritis: Onset Date: ~2020 Comment: Onset May 2021 +++RF+++CCP January,: Methotrexate started. changed to SQ 01/2024 Code(s): M06.9 - Rheumatoid arthritis, unspecified Category: Medical Qualifiers: Rheumatoid arthritis location: multiple sites Rheumatoid factor presence: without rheumatoid factor Qualified Code(s): M06.09 - Rheumatoid arthritis without rheumatoid factor, multiple sites Plan: #Seropositive RA patient is a 74-year-old female with seropositive rheumatoid arthritis currently in remission on methotrexate subcutaneous injections every week. Currently having side effects from the methotrexate we will try and optimize her folic acid to see if this helps. She had transaminitis on the June labs however this improved today. No need to decrease the dose of methotrexate Plan - Methotrexate 25mg SC every week - Folic acid 4mg every day - RTC 4 months - Labs before visit: CBC, CMP, ESR, CRP, hepatitis panel, T spot. - Also checking hemoglobin electrophoresis given her chronic anemia (2) Osteopenia: Comment: DEXA 12/2023. AP Spine -2.4, Left femur neck -1.3, Left femur total -0.9. FRAX 12.9/2.1 Code(s): M85.80 - Other specified disorders of bone density and structure, unspecified site Category: Medical Qualifiers: Osteopenia location: multiple sites Qualified Code(s): M85.89 - Other specified disorders of bone density and structure, multiple sites Plan: #Osteopenia patient with osteopenia with low FRAX score. 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 Limit alcohol and avoid Bactrim ? Monitoring: CBC, BMP, LFTs every 3-4 months and hepatitis serologies as needed Plan I spent 36 minutes reviewing the record and labs, taking a history, examining the patient, discussing the treatment plan, ordering diagnostic work up and documenting in the medical record Orders: Orders Comprehensive Met. Panel Today M06.09 - Rheumatoid arthritis without rheumatoid factor, multiple sites Complete Blood Count Auto Diff 4 Months D50.8 - Other iron deficiency anemias, M06.09 - Rheumatoid arthritis without rheumatoid factor, multiple sites C Reactive Protein 4 Months D50.8 - Other iron deficiency anemias, M06.09 - Rheumatoid arthritis without rheumatoid factor, multiple sites Erythrocyte Sedimentation Rate 4 Months D50.8 - Other iron deficiency anemias, M06.09 - Rheumatoid arthritis without rheumatoid factor, multiple sites Hepatitis A,B,C Profile 4 Months D50.8 - Other iron deficiency anemias, M06.09 - Rheumatoid arthritis without rheumatoid factor, multiple sites Hemoglobin Electrophoresis 4 Months D50.8 - Other iron deficiency anemias, M06.09 - Rheumatoid arthritis without rheumatoid factor, multiple sites AMB Joint Injection/Aspiration Today M17.0 - Bilateral primary osteoarthritis of knee AMB Joint Injection/Aspiration Today M17.0 - Bilateral primary osteoarthritis of knee Comprehensive Met. Panel 4 Months D50.8 - Other iron deficiency anemias, M06.09 - Rheumatoid arthritis without rheumatoid factor, multiple sites T Spot TB 4 Months D50.8 - Other iron deficiency anemias, M06.09 - Rheumatoid arthritis without rheumatoid factor, multiple sites Vitamin D 25-OH Total 4 Months E55.9 - Vitamin D deficiency, unspecified Medications: New Kenalog (triamcinolone acetonide) 40 mg intra-articular ONCE 1 mL 0RF NS M17.0 - Bilateral primary osteoarthritis of knee lidocaine (PF) 1 mL Infiltration ONCE 2 mL 0RF M17.0 - Bilateral primary osteoarthritis of knee Kenalog (triamcinolone acetonide) 40 mg intra-articular ONCE 1 mL 0RF NS M17.0 - Bilateral primary osteoarthritis of knee lidocaine (PF) 1 mL Infiltration ONCE 2 mL 0RF M17.0 - Bilateral primary osteoarthritis of knee Changed From insulin syringe-needle U-100 (BD Insulin Syringe) Use once weekly with methotrexate 10 ea 2RF M06.09 - Rheumatoid arthritis without rheumatoid factor, multiple sites To insulin syringe-needle U-100 Use once weekly with methotrexate 10 ea 4RF M06.09 - Rheumatoid arthritis without rheumatoid factor, multiple sites From folic acid 1 mg PO DAILY 30 tabs 2RF M06.9 - Rheumatoid arthritis, unspecified To folic acid 4 mg (4 x 1 mg) PO DAILY 90 days 360 tabs 1RF M06.9 - Rheumatoid arthritis, unspecified Refilled methotrexate sodium (PF) 25 mg subcut QWEEK 8 mL 4RF M06.09 - Rheumatoid arthritis without rheumatoid factor, multiple sites folic acid 4 mg (4 x 1 mg) PO DAILY 90 days 360 tabs 1RF M06.9 - Rheumatoid arthritis, unspecified Coding Level of Care Code Est Pt Level 4 (41417) Complex EM visit Add On G2211 Diagnoses Rheumatoid arthritis of multiple sites with negative rheumatoid factor M06.09 Rheumatoid arthritis location: multiple sites Rheumatoid factor presence: without rheumatoid factor Osteopenia of multiple sites M85.89 Osteopenia location: multiple sites Bilateral primary osteoarthritis of knee M17.0 Encounter for methotrexate monitoring Z51.81; Z79.631 CPT Codes Coding - 17115 Large joint: 70683 - Large joint ([id number]) Coding - 65517 Large joint: 32071 - Large joint ([id number])
[2024-08-16 09:24] VITALS: BP 140/78; PULSE 89; O2SAT 97; BMI 25.6
--- OUTSIDE RECORDS SUMMARY | 2024-08-16 10:37 | XMS_ITS | Encounter Summary ---
Author Organization [facility] Address [address] [place] [address] Care Team Providers Care Letter Stamping Machine Operator Name Role Phone Lindsey Pichardo MD Primary Care Provider Lindsey Matos MD Primary Care Provider Vaishnaviva Vish Montalvo Primary Care Provider [phone] Reason for Visit * Reason Onset Date Comments Adolescent Specialist Feedback 11/25/2017 [facility]os Encounter Details Date Type Department Care Team Description 11/25/2017 Telephone Medicine/Pediatrics - [address] [id number] Lindsey Pichardo MD Adolescent Specialist Feedback ([facility]) Social History Tobacco Use Types Packs/Day Years [...] on file documented as of this encounter Miscellaneous Notes * Telephone Encounter - Palma Rowley - 11/25/2017 9:11 AM EDT Images sent to orthopacs. * Telephone Encounter - Mishel Owusu - 11/25/2017 8:40 AM EDT Please when able push to orthopacs the 11/12/17 MRI for an upcoming appt with [facility]. Thank you, Mishel Referrals Coordinator [facility] documented in this encounter Plan of Treatment Not on file documented as of this encounter Visit Diagnoses Not on filedocumented in this encounter Care Teams Letter Stamping Machine Operator Relationship Specialty Start Date End Date Lindsey Pichardo MD PCP - General Internal Medicine 08/09/13 10/07/21 Lindsey Pichardo MD PCP - General Internal Medicine 10/08/21 11/25/21 Vish Lopez [address] [place] [id number] PCP - General Internal Medicine 11/26/21 documented as of this encounter
--- OUTSIDE RECORDS SUMMARY | 2024-08-16 10:37 | XMS_ITS | Encounter Summary ---
Author Organization [facility] Address [address] [place] [address] Care Team Providers Care Stock Pitcher Name Role Phone Vish Lopez Primary Care Provider [phone] Encounter Details Date Type Department Care Team Description 02/05/2022 Orders Only Adult Medicine [address] [address] Vish Lopez [address] [place] [address] [id number] Social History Tobacco Use Types Packs/Day Years [...] on filedocumented in this encounter Care Teams Stock Pitcher Relationship Specialty Start Date End Date Vish Lopez [address] [place] [address] [id number] PCP - General Internal Medicine 11/26/21 documented as of this encounter
--- OUTSIDE RECORDS SUMMARY | 2024-08-16 10:37 | XMS_ITS | Encounter Summary ---
Author Organization [facility] Address [address] [place] [address] Care Team Providers Care Automotive Warranty Administrator Name Role Phone Lindsey Pichardo MD Primary Care Provider Lindsey Matos MD Primary Care Provider Vish Malloy Primary Care Provider [phone] Encounter Details Date Type Department Care Team Description 06/05/2019 Hospital Medical Records [address] [place] [address] Social History Tobacco Use Types Packs/Day Years [...] on filedocumented in this encounter Care Teams Automotive Warranty Administrator Relationship Specialty Start Date End Date Lindsey Pichardo MD PCP - General Internal Medicine 08/09/13 10/07/21 Lindsey Pichardo MD PCP - General Internal Medicine 10/08/21 11/25/21 Vish Lopez [address] [place] [id number] PCP - General Internal Medicine 11/26/21 documented as of this encounter
--- OUTSIDE RECORDS SUMMARY | 2024-08-16 10:37 | XMS_ITS | Encounter Summary ---
Author Organization [facility] Address [address] [place] [address] Care Team Providers Care Sander Portable Machine Name Role Phone Jose G Shannon MD Primary Care Provider Unavail Lindsey Iverson MD Primary Care Provider Lindsey Matos MD Primary Care Provider Vish Malloy Primary Care Provider [phone] Encounter Details Date Type Department Care Team Description 02/14/2013 [facility] Medical Records [address] [place] [address] Ayaz Zelaya MD Social History Tobacco Use [...] on filedocumented in this encounter Care Teams Sander Portable Machine Relationship Specialty Start Date End Date Jose G Shannon MD PCP - General 06/25/06 08/08/13 Lindsey Pichardo MD PCP - General Internal Medicine 08/09/13 10/07/21 Lindsey Pichardo MD PCP - General Internal Medicine 10/08/21 11/25/21 Vish Lopez [address] [place], [place] [phone] PCP - General Internal Medicine 11/26/21 documented as of this encounter
--- OUTSIDE RECORDS SUMMARY | 2024-08-16 10:37 | XMS_ITS | Encounter Summary ---
Author Organization [facility] Address [address] [place] [address] Care Team Providers Care Supervisor Electric Name Role Phone Jose G Shannon MD Primary Care Provider Lindsey Thao MD Primary Care Provider Lindsey Matos MD Primary Care Provider Vish Malloy Primary Care Provider [phone] Encounter Details Date Type Department Care Team Description 04/29/2010 Fire Patrol Report Medical Records [address] [place], [place] [id number] [place] [address] Social History Tobacco Use Types Packs/Day Years Used Date Smoking Tobacco: Every Day Comments:1/2 PPD Quit plan i n [address] Alcohol Use Standard Drinks/Week Comments Yes 0 (1 standard drink = 0.6 oz pur e alcohol) occasional Sex Assigned at Date Recorded Not on file Job Start Date Occupation Industry Not on file Not on file Not on file documented as of this encounter Plan of Treatment Not on file documented as of this encounter Visit Diagnoses Not on filedocumented in this encounter Care Teams Supervisor Electric Relationship Specialty Start Date End Date Jose G Sahnnon MD PCP - General 06/25/06 08/08/13 Lindsey Pichardo MD PCP - General Internal Medicine 08/09/13 10/07/21 Lindsey Pichardo MD PCP - General Internal Medicine 10/08/21 11/25/21 Vish Lopez [address] [place] [id number] PCP - General Internal Medicine 11/26/21 documented as of this encounter
--- OUTSIDE RECORDS SUMMARY | 2024-08-16 10:37 | XMS_ITS | Encounter Summary ---
Author Organization [facility] Address [address] [place] [address] Care Team Providers Care Smocker Name Role Phone Lindsey Pichardo MD Primary Care Provider Lindsey Matos MD Primary Care Provider Vish Malloy Primary Care Provider [phone] Encounter Details Date Type Department Care Team Description 12/28/2017 Powder Coat Painter Report Medical Records [address] [place] [address] Markell Madera PA-C Social History Tobacco Use [...] on filedocumented in this encounter Care Teams Smocker Relationship Specialty Start Date End Date Lindsey Pichardo MD PCP - General Internal Medicine 08/09/13 10/07/21 Lindsey Pichardo MD PCP - General Internal Medicine 10/08/21 11/25/21 Vish Lopez [address] [place] [address] PCP - General Internal Medicine 11/26/21 documented as of this encounter
== END 2024-08-16 10:18 | disposition home or self-care (01) ==
LOC: HO.RHE 09:12
PROVIDERS: PCP Physician Assistant; Visit Provider Student in an Organized Health Care Education/Training Program
DX: M06.09 Rheumatoid arthritis without rheumatoid factor, multiple sites (principal); M85.89 Other specified disorders of bone density and structure, multiple sites; M17.0 Bilateral primary osteoarthritis of knee; Z51.81 Encounter for therapeutic drug level monitoring; Z79.631 Long term (current) use of antimetabolite agent
CPT/HCPCS: 20610; 99214

== ENCOUNTER → 2024-08-16 09:11 | Outpatient (BNVA) | payer OTHER, SELFPAY | PROVIDERS: PCP Physician Assistant; Visit Provider Student in an Organized Health Care Education/Training Program | DX: M06.09 Rheumatoid arthritis without rheumatoid factor, multiple sites (principal); M85.89 Other specified disorders of bone density and structure, multiple sites; M17.0 Bilateral primary osteoarthritis of knee; Z79.631 Long term (current) use of antimetabolite agent | CPT/HCPCS: 20610; J3300 ==

== ENCOUNTER 2024-08-16 10:34 | Outpatient (REF) | payer OTHER, SELFPAY ==
[2024-08-16 12:26] LABS: Alanine Aminotransferase 27 U/L (0-31); Alkaline Phosphatase 112 U/L (39-117); Anion Gap 10 (12-20); Aspartate Amino Transferase 27 U/L (5-31); Bilirubin Total 0.6 mg/dL (0.0-1.0); Blood Urea Nitrogen 14 mg/dL (9-16); Calcium 9.4 mg/dL (8.4-10.2); Carbon Dioxide 28 mmol/L (22-29); Chloride 105 mmol/L (96-108); Estimated Glomerular Filt Rate > 60; Glucose Random 100 mg/dL (60-115); Potassium 4.2 mmol/L (3.3-5.1); Sodium 139 mmol/L (135-145)
--- OUTSIDE RECORDS SUMMARY | 2024-08-16 13:18 | XMS_ITS | Encounter Summary ---
Author Organization [facility] Address [address] [place] [address] Care Team Providers Care Rubber Goods Assembler Name Role Phone Vish Lopez Primary Care Provider [phone] Encounter Details Date Type Department Care Team Description 09/15/2022 Telecommunications Project Manager Report Medical Records [address] [place] [address] Jef Turner MD Social History Tobacco Use [...] on filedocumented in this encounter Care Teams Rubber Goods Assembler Relationship Specialty Start Date End Date Vish Lopez [address] [place] [address] PCP - General Internal Medicine 11/26/21 documented as of this encounter
--- OUTSIDE RECORDS SUMMARY | 2024-08-16 13:18 | XMS_ITS | Encounter Summary ---
Author Organization [facility] Address [address] [place] [address] Care Team Providers Care Director Of Tax Services Name Role Phone Lindsey Pichardo MD Primary Care Provider Lindsey Matos MD Primary Care Provider Vish Malloy Primary Care Provider Encounter Details Date Type Department Care Team Description 06/12/2020 SCAN Medical Records [address] [place] [address] Jef Cannon MD [address] [place] [address] Social History Tobacco Use Types Packs/Day Years Used Date Smoking Tobacco: Former Cigarettes 0.3 Q uit: 08/04/2017 Smokeless Tobacco: Never Comments:/4 to 1/2 ppd Alcohol Use Standard Drinks/Week [...] on filedocumented in this encounter Care Teams Director Of Tax Services Relationship Specialty Start Date End Date Lindsey Pichardo MD PCP - General Internal Medicine 08/09/13 10/07/21 Lindsey Pichardo MD PCP - General Internal Medicine 10/08/21 11/25/21 Vish Lopez [address] [place] [address] PCP - General Internal Medicine 11/26/21 documented as of this encounter
--- OUTSIDE RECORDS SUMMARY | 2024-08-16 13:18 | XMS_ITS | Encounter Summary ---
Author Organization [facility] Address [address] [place] [address] Care Team Providers Care Inner Diameter Grinder Tool Name Role Phone Jose G Shannon MD Primary Care Provider Lindsey Thao MD Primary Care Provider Lindsey Matos MD Primary Care Provider Vish Malloy Primary Care Provider [phone] Encounter Details Date Type Department Care Team Description 06/23/2010 [facility] Medical Records [address] [place] [address] Clifford Christensen MD Social History Tobacco Use [...] on filedocumented in this encounter Care Teams Inner Diameter Grinder Tool Relationship Specialty Start Date End Date Jose G Shannon MD PCP - General 06/25/06 08/08/13 Lindsey Pichardo MD PCP - General Internal Medicine 08/09/13 10/07/21 Lindsey Pichardo MD PCP - General Internal Medicine 10/08/21 11/25/21 Vish Lopez [address] [place] [address] PCP - General Internal Medicine 11/26/21 documented as of this encounter
--- OUTSIDE RECORDS SUMMARY | 2024-08-16 13:18 | XMS_ITS | Encounter Summary ---
Author Organization [facility] Address [address] [place] [address] Care Team Providers Care Teletype Adjuster Name Role Phone Lindsey Pichardo MD Primary Care Provider Lindsey Matos MD Primary Care Provider Vish Malloy Primary Care Provider [phone] Encounter Details Date Type Department Care Team Description 06/05/2019 [facility] Medical Records [address] [place] [address] Social History Tobacco Use Types Packs/Day Years [...] on filedocumented in this encounter Care Teams Teletype Adjuster Relationship Specialty Start Date End Date Lindsey Pichardo MD PCP - General Internal Medicine 08/09/13 10/07/21 Lindsey Pichardo MD PCP - General Internal Medicine 10/08/21 11/25/21 Vish Lopez [address] [place] [id number] PCP - General Internal Medicine 11/26/21 documented as of this encounter
--- OUTSIDE RECORDS SUMMARY | 2024-08-16 13:18 | XMS_ITS | Encounter Summary ---
Author Organization [facility] Address [address] [place] [address] Care Team Providers Care Upholstery Department Supervisor Name Role Phone Jose G Shannon MD Primary Care Provider Lindsey Thao MD Primary Care Provider Lindsey Matos MD Primary Care Provider Vish Malloy Primary Care Provider [phone] Encounter Details Date Type Department Care Team Description 04/29/2010 [employer] Sales Representative Report Medical Records [address] [place], [place] [id number] [place] [address] Social History Tobacco Use Types Packs/Day Years [...] on filedocumented in this encounter Care Teams Upholstery Department Supervisor Relationship Specialty Start Date End Date Jose G Shannon MD PCP - General 06/25/06 08/08/13 Lindsey Pichardo MD PCP - General Internal Medicine 08/09/13 10/07/21 Lindsey Pichardo MD PCP - General Internal Medicine 10/08/21 11/25/21 Vish Lopez [address] [place] [id number] PCP - General Internal Medicine 11/26/21 documented as of this encounter
--- OUTSIDE RECORDS SUMMARY | 2024-08-16 13:18 | XMS_ITS | Encounter Summary ---
Author Organization [facility] Address [address] [place] [address] Care Team Providers Care Snow Removing Supervisor Name Role Phone Jose G Shannon MD Primary Care Provider Unavail Lindsey Iverson MD Primary Care Provider Lindsey Matos MD Primary Care Provider Vish Malloy Primary Care Provider [phone] Encounter Details Date Type Department Care Team Description 02/14/2013 [facility]AN Medical Records [address] [place] [address] Abstract, Provider Social History Tobacco Use Types [...] on filedocumented in this encounter Care Teams Snow Removing Supervisor Relationship Specialty Start Date End Date Jose G Shannon MD PCP - General 06/25/06 08/08/13 Lindsey Pichardo MD PCP - General Internal Medicine 08/09/13 10/07/21 Lindsey Pichardo MD PCP - General Internal Medicine 10/08/21 11/25/21 Vish Lopez [address] [place] [id number] PCP - General Internal Medicine 11/26/21 documented as of this encounter
--- OUTSIDE RECORDS SUMMARY | 2024-08-16 13:18 | XMS_ITS | Encounter Summary ---
Author Organization [facility] Address [address] [place] [address] Care Team Providers Care Cutting Machine Fixer Name Role Phone Lindsey Pichardo MD Primary Care Provider Lindsey Matos MD Primary Care Provider Vish Malloy Primary Care Provider [phone] Encounter Details Date Type Department Care Team Description 12/28/2017 [employer] Weaver Report Medical Records [address] [place] [address] Markell Madera PA-C Social History Tobacco Use [...] on filedocumented in this encounter Care Teams Cutting Machine Fixer Relationship Specialty Start Date End Date Lindsey Pichardo MD PCP - General Internal Medicine 08/09/13 10/07/21 Lindsey Pichardo MD PCP - General Internal Medicine 10/08/21 11/25/21 Vish Lopez [address] [place] [address] PCP - General Internal Medicine 11/26/21 documented as of this encounter
--- OUTSIDE RECORDS SUMMARY | 2024-08-16 13:18 | XMS_ITS | Encounter Summary ---
Author Organization [facility] Address [address] [place] [address] Care Team Providers Care Direct Mail Marketer Name Role Phone Vish Lopez Primary Care Provider [phone] Encounter Details Date Type Department Care Team Description 02/05/2022 Orders Only Adult Medicine [address] [address] Vish Lopez [address] [place] [phone] Social History Tobacco Use Types Packs/Day Years [...] on filedocumented in this encounter Care Teams Direct Mail Marketer Relationship Specialty Start Date End Date Vish Lopez [address] [place] [phone] PCP - General Internal Medicine 11/26/21 documented as of this encounter
== END 2024-08-16 10:35 | disposition home or self-care (01) ==
LOC: HO.10HDL 10:34
PROVIDERS: Visit Provider Student in an Organized Health Care Education/Training Program
DX: M06.09 Rheumatoid arthritis without rheumatoid factor, multiple sites (principal)
CPT/HCPCS: 36415; 80053

== ENCOUNTER 2024-11-13 11:13 | Outpatient (AMB) | payer OTHER, SELFPAY ==
--- NOTE | 2024-11-13 11:17 | A.OFFPC_ITS ---
Vital Signs 11/13/24 11:22 Height 5 ft 2 in Weight 141 lb 2 oz BMI 25.8 BP 124/64 Blood Pressure Location Rt brachial Position Sitting Pulse 74 Pulse Source Pulse Oximeter Temp 98.3 F Temp Source Temporal Artery Scan Pulse Oximetry (%) 96 Oxygen Delivery Method Room Air Intake Visit Reasons: [facility] from [facility] [place] to [place] Intake Note: Johanne presents in the office today to establish care. Allergies erythromycin base Allergy (Intermediate, Verified 11/13/24 11:20) Vomiting Seasonal Allergies Allergy (Intermediate, Verified 11/13/24 11:20) Runny Nose codeine [CODEINE] Allergy (Unknown, Verified 11/13/24 11:20) NAUSEA Tobacco use date assessed: 11/13/24 Fall risk assessment: No Falls in past year Last assessed Fall Risk: 11/13/24 Dental Screening Dental Screen Date: 11/13/24 Did you have a dental visit in the last 12 months?: Yes Did you have a dental problem in the last 6 months where you did not have access to dental care?: No Was dental information given to patient?: Patient has dentist HPI HPI Comments History of Present Illness Details Patient is a 73-year-old female with a significant past medical history of moderate aortic stenosis, CAD, rheumatoid arthritis, iron deficiency anemia, osteoarthritis, GERD, diverticulosis, IBS and history of basal cell carcinoma presenting for follow up GI: Has had a double endoscopy for nausea and upset stomach but states that it was normal. This was done earlier this year. It is believes that this is likely related to methotrexate and considered methotrexate flu. Symptoms resolve within 2 days following administration of methotrexate. Heme/onc: She reports chronic history JOSIANE and being placed on iron this past year-not currently taking Musculoskeletal: Follows with rheumatology, Dr Lopes. On MTX, folic acid Pulm: LDCT 02/2024 PFTs were overall reassuring. Patient did see pulmonology. CV: Moderate aortic stenosis. Recent cardiac cath was neg. Following with cardiology Recently saw dermatology for skin check. Sister with h/o skin cancer Mammogram: UTD, would like this done at [place] instead of [place]. Bone density: Up-to-date Colonoscopy: UTD, goes q 5 years Former Smoker: smoked 0.5-1 ppd x 50 years quit 5 years ago. Father had lung ca. ROS CONSTITUTIONAL: Denies weight loss, fever and chills. HEENT: Denies changes in vision and hearing. RESPIRATORY: Denies SOB and cough. CV: Denies palpitations and CP GI: Denies abdominal pain, nausea, vomiting and diarrhea. : Denies dysuria and urinary frequency. MSK: Denies new myalgia and joint pain. SKIN: Denies rash and pruritus. NEUROLOGICAL: Denies headache PSYCHIATRIC: Denies recent changes in mood. PHYSICAL EXAM: GENERAL: Alert and oriented x 3. NAD EYES: EOMI. Anicteric. HENT: Moist mucous membranes. No scleral icterus. No cervical lymphadenopathy. LUNGS: Clear to auscultation bilaterally. CARDIOVASCULAR: Regular rate and rhythm. + murmur. No JVD. ABDOMEN: Soft, non-tender +bs EXTREMITIES: No edema. Non-tender. SKIN: No rashes or lesions. Warm. NEUROLOGIC: No focal neurological deficits. CN II-XII grossly intact PSYCHIATRIC: Cooperative. Appropriate mood and affect [facility] Medical History intermediate current use of immunosuppressive drug Rheumatoid arthritis (~2020) Osteopenia IBS (irritable bowel syndrome) Personal history of nicotine dependence Periodontal disease Anemia, iron deficiency Intermittent pain and swelling of hand Surgical History History of basal cell carcinoma (BCC) excision History of colonoscopy History of eye surgery History of cataract surgery History of tonsillectomy S/P breast biopsy, right Family History Mother Anemia Breast cancer Hypertension Father Rheumatoid arthritis Lung cancer Hypertension Daughter Thyroid cancer Sister Parkinsons disease Social History Household Members Other:: lives alone Housing: House Are you a primary home care giver to a significant other at home: No Do you presently have visiting nurse or other home services: No 75 years or older and lives alone: No Alcohol intake: current Alcohol intake frequency: holidays/special occasions only Alcohol type: hard liquor Patient Tobacco Use Status: Former Tobacco user Years Smoked: (onset 17yo, 1ppd x 51yrs, 50pyh - quit 03/2019) e-Cigarette/Vaping Use: Never Used service: No Current occupational status: retired 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 1. Little interest or pleasure in doing things: not at all 2. Feeling down, depressed, or hopeless: not at all 3. Trouble falling or staying asleep, or sleeping too much: not at all 4. Feeling tired or having little energy: not at all 5. Poor appetite or overeating: not at all 6. Feeling bad about yourself - or that you are a failure or have let yourself or your family down: not at all 7. Trouble concentrating on things, such as reading the newspaper or watching television: not at all 8. Moving or speaking so slowly that other people could have noticed. Or the opposite - being so fidgety or restless that you have been moving around a lot more than usual: not at all 9. Thoughts that you would be better off or of hurting yourself in some way: not at all Total score: 0 Depression Screening Interpretation: Negative Depression Screening Done: Yes 54533 - PHQ-9 Billing: Yes Source: Developed by Drs. Clarence Stacy, Preethi Lea, Phil Figueroa and colleagues, with an educational nga from [employer]. Thrive Questionnaire Date Thrive assessed: 11/13/24 I am a: Patient What is your living situation today?: I have a steady place to live Within the past 12 months, did the food you bought not last and you didn't have the money to get more?: Never true Within the past 12 months, did you worry whether your food would run out before you got money to buy more?: Never true Do you have trouble paying for medicines?: No Do you have trouble getting transportation to medical appointments?: No Do you have trouble paying your heating and electricity bill?: No Do you have trouble taking care of your child, family member or friend?: No Do you have trouble with day-to-day activities such as bathing, preparing meals, shopping, managing finances, etc.?: No Are you currently unemployed and looking for a job?: No Are you interested in more education?: No Please select the resources that you would like help with: None Currently or been in a relationship where the following occur: No concerns reported THRIVE Score: 0 AUDIT C Alcohol Use Questionnaire (AUDIT-C) 1. How often do you have a drink containing alcohol?: 2-4 times a month 2. How many drinks containing alcohol do you have on a typical day when you are drinking?: 1 or 2 3. How often do you have six or more drinks on one occasion?: Never Total Score: 2 Score Reviewed/Action Taken: No LISA-7 AMB Questionnaire LISA-7 Date LISA - 7 assessed: 11/13/24 Feeling nervous, anxious, or on edge: 0 = Not at all Not being able to stop or control worryin = Not at all Worrying too much about different things: 0 = Not at all Trouble relaxin = Several days Being so restless that it is hard to sit still: 0 = Not at all Becoming easily annoyed or irritable: 0 = Not at all Feeling afraid as if something awful might happen: 0 = Not at all Total LISA-7 score (0-4 normal; 5-9 mild; 10-14 moderate; 15-21 severe): 1 Source: Developed by Drs. Clarence Stacy, Preethi Lea, Phil Figueroa and colleagues, with an educational nga from [employer]. LISA-7 Assessment Billing LISA-7 Assessment Tool: LISA-7 Assessment 03671 Physical exam (Primary Care) Vital Signs: Last Vital Signs Temp 98.3 F 11/13/24 11:22 Pulse 74 11/13/24 11:22 BP 124/64 11/13/24 11:22 Pulse Ox 96 11/13/24 11:22 Oxygen Delivery Method Room Air 11/13/24 11:22 BMI result Body Mass Index 25.8 Tobacco/Smoking Status: Tobacco use Status Tobacco use date assessed 11/13/24 11/13/24 11:25 Patient Tobacco Use Status Former Tobacco user 11/13/24 11:22 e-Cigarette/Vaping Use Never Used 11/13/24 11:22 PHQ-9: PHQ-9 Score PHQ-9: Total score 0 11/13/24 11:19 Depression Screening Interpretation: Negative Thrive Assessment: Date of Thrive Assessment Date Thrive assessed 11/13/24 11/13/24 11:19 Currently or been in a relationship where the following occur: No concerns reported Coding Level of Care Code Est Pt Level 4 (71231) Complex EM visit Add On G2211 Diagnoses Rheumatoid arthritis of multiple sites with negative rheumatoid factor M06.09 Rheumatoid arthritis location: multiple sites Rheumatoid factor presence: without rheumatoid factor Gastroesophageal reflux disease, unspecified whether esophagitis present K21.9 Esophagitis presence: esophagitis presence not specified Primary osteoarthritis of both knees M17.0 Osteoarthritis type: primary History of basal cell carcinoma (BCC) of skin Z85.828 Anemia, unspecified type D64.9 Anemia type: unspecified type Additional Codes LISA-7 Assessment Billing - LISA-7 Assessment Tool: LISA-7 Assessment 91995 ([id number]) PHQ-9 - 72288 - PHQ-9 Billing: Yes ([id number]) Assessment & Plan Assessment & Plan (1) Rheumatoid arthritis: Onset Date: ~2020 Comment: Onset May 2021 +++RF+++CCP January,: Methotrexate started. changed to SQ 01/2024 Code(s): M06.9 - Rheumatoid arthritis, unspecified Category: Medical Qualifiers: Rheumatoid arthritis location: multiple sites Rheumatoid factor presence: without rheumatoid factor Qualified Code(s): M06.09 - Rheumatoid arthritis without rheumatoid factor, multiple sites (2) GERD (gastroesophageal reflux disease): Code(s): K21.9 - Gastro-esophageal reflux disease without esophagitis Category: Medical Qualifiers: Esophagitis presence: esophagitis presence not specified Qualified Code(s): K21.9 - Gastro-esophageal reflux disease without esophagitis (3) Osteoarthritis of knees, bilateral: Code(s): M17.0 - Bilateral primary osteoarthritis of knee Category: Medical Qualifiers: Osteoarthritis type: primary Qualified Code(s): M17.0 - Bilateral primary osteoarthritis of knee (4) History of basal cell carcinoma (BCC) of skin: Code(s): Z85.828 - Personal history of other malignant neoplasm of skin Category: Medical (5) Anemia, unspecified: Code(s): D64.9 - Anemia, unspecified Category: Medical Qualifiers: Anemia type: unspecified type Qualified Code(s): D64.9 - Anemia, unspecified Plan 74 year old for follow up Anemia-labs ordered. Chronic. Endoscopy up to date RA-on mtx, folic acid. Following with rheumatology CAD, -following with cardiology Preventive UTD Orders: Orders IRON PROFILE Today D64.9 - Anemia, unspecified, K21.9 - Gastro-esophageal reflux disease without esophagitis, R06.02 - Shortness of breath, Z13.220 - Encounter for screening for lipoid disorders Pathologist Review - CBC Today D64.9 - Anemia, unspecified, K21.9 - Gastro- esophageal reflux disease without esophagitis, R06.02 - Shortness of breath, Z1 3.220 - Encounter for screening for lipoid disorders Complete Blood Count Auto Diff Today D64.9 - Anemia, unspecified, K21.9 - Gastro-esophageal reflux disease without esophagitis, R06.02 - Shortness of breath, Z13.220 - Encounter for screening for lipoid disorders Lipid Panel Today D64.9 - Anemia, unspecified, K21.9 - Gastro-esophageal reflux disease without esophagitis, R06.02 - Shortness of breath, Z13.220 - Encounter for screening for lipoid disorders Vitamin B12 and Folate Today D64.9 - Anemia, unspecified, K21.9 - Gastro- esophageal reflux disease without esophagitis, R06.02 - Shortness of breath, Z13.220 - Encounter for screening for lipoid disorders CA echo transthoracic complete Today I35.0 - Nonrheumatic aortic (valve) stenosis
[2024-11-13 11:22] VITALS: BP 124/64; PULSE 74; TEMP 36.8; O2SAT 96; BMI 25.8
--- OUTSIDE RECORDS SUMMARY | 2024-11-13 13:29 | XMS_ITS | Encounter Summary ---
Author Organization [facility] Address [address] [place] [address] Care Team Providers Care Invoice Machine Operator Name Role Phone Vish Lopez Primary Care Provider [phone] Encounter Details Date Type Department Care Team Description 12/16/2022 Fire Tender Report Medical Records [address] [place] [address] Jef Turner MD Social History Tobacco Use [...] on filedocumented in this encounter Care Teams Invoice Machine Operator Relationship Specialty Start Date End Date Vish Lopez [address] [place] [phone] PCP - General Internal Medicine 11/26/21 documented as of this encounter
== END 2024-11-13 11:52 | disposition home or self-care (01) ==
LOC: HO.HMCFM 11:13
PROVIDERS: PCP Physician Assistant; Visit Provider Internal Medicine
DX: M06.09 Rheumatoid arthritis without rheumatoid factor, multiple sites (principal); K21.9 Gastro-esophageal reflux disease without esophagitis; M17.0 Bilateral primary osteoarthritis of knee; Z85.828 Personal history of other malignant neoplasm of skin; D64.9 Anemia, unspecified

== ENCOUNTER → 2024-11-13 11:13 | Outpatient (BNVA) | payer OTHER, SELFPAY | PROVIDERS: PCP Physician Assistant; Visit Provider Internal Medicine | DX: M06.09 Rheumatoid arthritis without rheumatoid factor, multiple sites (principal); K21.9 Gastro-esophageal reflux disease without esophagitis; M17.0 Bilateral primary osteoarthritis of knee; D64.9 Anemia, unspecified; I25.10 Atherosclerotic heart disease of native coronary artery without angina pectoris; Z85.828 Personal history of other malignant neoplasm of skin; Z79.631 Long term (current) use of antimetabolite agent; Z79.899 Other long term (current) drug therapy; Z13.30 Encounter for screening examination for mental health and behavioral disorders, unspecified; Z13.31 Encounter for screening for depression | CPT/HCPCS: 96127 ==

== ENCOUNTER 2024-11-20 12:41 | Outpatient (AMB) | payer OTHER, SELFPAY ==
--- NOTE | 2024-11-20 12:44 | A.OFFVIS_ITS ---
Vital Signs 11/20/24 12:48 Height 5 ft 2 in Weight 141 lb 8.588 oz BMI 25.9 BP 130/66 Blood Pressure Location Lt brachial Position Sitting Pulse 73 Pulse Source Monitor Intake Visit Reasons: 6 mth f/up Outside Event Sales Specialist Required: No Accompanied by: Self / Same As Patient Allergies erythromycin base Allergy (Intermediate, Verified 11/13/24 11:20) Vomiting Seasonal Allergies Allergy (Intermediate, Verified 11/13/24 11:20) Runny Nose codeine [CODEINE] Allergy (Unknown, Verified 11/13/24 11:20) NAUSEA Medication List - Last Reconciled 11/20/24 by Logan Cannon MD calcium carbonate-vitamin D3 500 mg-10 mcg (400 unit) (Calcium 500 With D) 1 tab PO BID famotidine 20 mg PO BID folic acid 4 mg (4 x 1 mg) PO DAILY 90 days ibuprofen 200 mg PO Q6H PRN insulin syringe-needle U-100 Use once weekly with methotrexate methotrexate sodium (PF) 25 mg subcut QWEEK HPI Comments Details: Johanne returns for follow-up. She was having chest pain which was both at rest as well as exertion. History of rheumatoid arthritis on immunosuppressive agents. She had a stress test followed by diagnostic catheterization. However, no obstructive lesions noted. On the echocardiogram however, she had moderate aortic stenosis that will need to be followed. Patient herself states she feels quite good. She really has not had any chest pains recently. Otherwise, she was getting epistaxis from aspirin but saw ENT and had cauterization of the nose. None since. Aspirin is not listed on her meds anymore. 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 Rheumatoid arthritis (~2020) Osteopenia IBS (irritable bowel syndrome) Personal history of nicotine dependence Periodontal disease Anemia, iron deficiency Intermittent pain and swelling of hand Surgical History History of basal cell carcinoma (BCC) excision History of colonoscopy History of eye surgery History of cataract surgery History of tonsillectomy S/P breast biopsy, right Family History Mother Anemia Breast cancer Hypertension Father Rheumatoid arthritis Lung cancer Hypertension Daughter Thyroid cancer Sister Parkinsons disease Social History Household Members Other:: lives alone Housing: House Are you a primary career development associate to a significant other at home: No Do you presently have visiting nurse or other home services: No 75 years or older and lives alone: No Alcohol intake: current Alcohol intake frequency: holidays/special occasions only Alcohol type: hard liquor Patient Tobacco Use Status: Former Tobacco user Years Smoked: (onset 17yo, 1ppd x 51yrs, 50pyh - quit 03/2019) e-Cigarette/Vaping Use: Never Used service: No Current occupational status: retired 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 Current occupational exposures/hazards: No Cognitive needs: No Hearing needs: Yes (some hearing loss) Vision needs: Yes (glasses) Review of Systems Const Denies chills, Denies fatigue, Denies fever(s), Denies frequent falls, Denies weakness, Denies weight gain and Denies weight loss ENT Denies dizziness Card Denies chest pain, Denies leg edema, Denies lightheadedness, Denies palpitations, Denies dyspnea and Denies dyspnea on exertion Resp Denies cough, Denies dyspnea and Denies dyspnea on exertion GI Denies hematochezia Musc Denies abnormal gait, Denies muscle weakness, Denies numbness, Denies radiating pain into limb and Denies tingling Neuro Denies Abnormal speech present, Denies abnormal gait, Denies dizziness, Denies frequent falls, Denies numbness, Denies tingling and Denies weakness Endo Denies fatigue and Denies palpitations Physical Exam Vital Signs: Last Vital Signs Pulse 73 11/20/24 12:48 BP 130/66 11/20/24 12:48 BMI result Body Mass Index 25.9 Const General: comfortable and no acute distress Orientation/consciousness: patient oriented x3 HEENT Other: Unremarkable Head: Yes normal to inspection Neck Neck: Yes normal visual inspection Chest Chest palpation & inspection: normal inspection of the chest Resp Auscultation: clear to auscultation bilaterally Cardio Palpation: normal PMI Heart sounds: S1 normal heart sound present, S2 normal heart sound present, no gallops, Murmur heart sound present systolic III/ and at the right sternal border and no rubs GI Palpation (GI): Soft to palpation Back/Spine/Pelvis Other: unremarkable Skin General skin exam: no rashes or lesions noted Neuro General: patient oriented x3 Speech: No Abnormal speech present Extrem General: Yes normal to inspection Psych Mental Status: mental status grossly normal Office Procedures EKG Details: EKG with underlying sinus rhythm at 73/Min; no ischemic changes; [place] [address]-[id number], Complete Assessment & Plan Assessment & Plan (1) Precordial chest pain: Code(s): R07.2 - Precordial pain Category: Medical (2) Abnormal stress test: Code(s): R94.39 - Abnormal result of other cardiovascular function study Category: Medical (3) Nonrheumatic aortic (valve) stenosis: Code(s): I35.0 - Nonrheumatic aortic (valve) stenosis Category: Medical Plan Cardiac studies reviewed. Baseline EKG-underlying sinus rhythm at 64/Min; possible left atrial enlargement; no significant ST-T changes and otherwise unremarkable. In the exercise stress test, she was able to do up to 4.6 METS on Blas protocol. Reached target heart rate and had some shortness of breath but no chest discomfort. There was evidence of ST depression-seen during stage I of exercise as well as during recovery. The ST depression does persist several minutes into recovery. In the perfusion component, thought to be possible ischemia in the distal anteroseptal/inferolateral areas. In the echocardiogram, LVEF 59%. Severe calcification of the aortic valve with moderate stenosis. Moderate mitral annular calcification. In the cardiac catheterization, minimal irregularities in the LAD but otherwise normal coronary arteries. Normal LVEDP. Overall, chest pain of uncertain etiology but currently resolved. Not clear if it is just related to the arthritic issues he has had. With regard to the moderate aortic stenosis, we will get an echocardiogram for follow-up. With regard to the epistaxis with aspirin, status post cauterization of the nose. Follow up in 6 months. Discussion Notes During our discussion, I explained the plan to reorder the echocardiogram to evaluate the valve condition further. While rheumatoid arthritis could play a role in musculoskeletal pain, her current symptom-free status does not indicate an immediate need for change. We arranged for a follow-up in six months to reflect on echocardiogram findings and ongoing care needs. Patient was informed and verbally consented to the use of an ambient scribe for clinic note documentation during this visit. Patient Instructions: - Undergo a new echocardiogram as scheduled. - Monitor any potential chest-related symptoms. - Follow up in six months for a routine check-up. Coding Level of Care Code Est Pt Level 4 (58340) Complex EM visit Add On G2211 Diagnoses Precordial chest pain R07.2 Abnormal stress test R94.39 Nonrheumatic aortic (valve) stenosis I35.0 CPT Codes EKG - CPT: 35443-[id number], Complete ([id number])
[2024-11-20 12:48] VITALS: BP 130/66; PULSE 73; BMI 25.9
== END 2024-11-20 13:05 | disposition home or self-care (01) ==
LOC: HO.HCS 12:42
PROVIDERS: PCP Physician Assistant; Visit Provider Internal Medicine
DX: R07.2 Precordial pain (principal); R94.39 Abnormal result of other cardiovascular function study; I35.0 Nonrheumatic aortic (valve) stenosis
CPT/HCPCS: 93010; 99214

== ENCOUNTER → 2024-11-20 12:41 | Outpatient (BNVA) | payer OTHER, SELFPAY | PROVIDERS: PCP Physician Assistant; Visit Provider Internal Medicine | DX: R07.2 Precordial pain (principal) | CPT/HCPCS: 93005 ==

== ENCOUNTER 2024-12-12 13:23 | Outpatient (REF) | payer OTHER, SELFPAY ==
[2024-12-12 16:11] LABS: MANUAL DIFF FLAG NO
[2024-12-12 16:13] LABS: MANUAL DIFF FLAG NO
[2024-12-12 16:16] LABS: Hematocrit 32.1 % (37.0-47.0); Hemoglobin 11.1 g/dl (12.0-16.0); Imm Gran Abs Auto 0.02 X10*3/uL (0.00-0.03); Imm Gran Pct Auto 0.3 % (0.0-0.4); Lymphocytes Absolute Auto 1.4 X10*3/uL (1.2-4.9); Mean Corpuscular HGB Conc 34.6 g/dl (31.0-35.0); Mean Corpuscular Hemoglobin 30.9 pg (27.0-33.0); Mean Corpuscular Volume 89.4 fL (80.0-98.0); NRBC Abs Auto 0.000 X10*3/uL (0.0-0.012); NRBC Pct Auto 0.0 /100WBC (0.0-0.2); Platelet Count 319 X10*3/uL (160-400); Red Blood Count 3.59 X10*6/uL (4.20-5.50); White Blood Count 6.9 X10*3/uL (4.8-10.8)
[2024-12-12 16:17] LABS: Hematocrit 32.4 % (37.0-47.0); Hemoglobin 11.1 g/dl (12.0-16.0); Imm Gran Abs Auto 0.02 X10*3/uL (0.00-0.03); Imm Gran Pct Auto 0.3 % (0.0-0.4); Lymphocytes Absolute Auto 1.4 X10*3/uL (1.2-4.9); Mean Corpuscular HGB Conc 34.3 g/dl (31.0-35.0); Mean Corpuscular Hemoglobin 30.7 pg (27.0-33.0); Mean Corpuscular Volume 89.5 fL (80.0-98.0); NRBC Abs Auto 0.000 X10*3/uL (0.0-0.012); NRBC Pct Auto 0.0 /100WBC (0.0-0.2); Platelet Count 328 X10*3/uL (160-400); Red Blood Count 3.62 X10*6/uL (4.20-5.50); White Blood Count 6.8 X10*3/uL (4.8-10.8)
[2024-12-12 16:37] LABS: Alanine Aminotransferase 19 U/L (0-31); Albumin Level 4.2 g/dL (3.5-5.0); Alkaline Phosphatase 87 U/L (39-117); Anion Gap 12 (12-20); Aspartate Amino Transferase 25 U/L (5-31); Blood Urea Nitrogen 14 mg/dL (9-16); Calcium 9.0 mg/dL (8.4-10.2); Carbon Dioxide 26 mmol/L (22-29); Chloride 105 mmol/L (96-108); Cholesterol 201 mg/dL (<200); Estimated Glomerular Filt Rate > 60; HDL Cholesterol 40 mg/dL (>40); Potassium 3.9 mmol/L (3.3-5.1); Sodium 139 mmol/L (135-145); Total Protein 7.1 g/dL (6.5-8.0); Triglycerides 106 mg/dL (<150)
[2024-12-12 16:39] LABS: Cholesterol 197 mg/dL (<200); HDL Cholesterol 40 mg/dL (>40); Iron 143 mcg/dL (30-160); Percent Iron Saturation 44 % (15-50); Total Iron Binding Capacity 323 mcg/dL (228-428); Triglycerides 104 mg/dL (<150); Unsaturated Iron Binding 180 ug/dL
[2024-12-12 17:10] LABS: Folate > 20.0 ng/mL (> or = 4.0); Vitamin B12 359 pg/mL (200-900)
[2024-12-13 06:42] LABS: HBS Num1 0.77 mIU/mL (0-7.99); HBc Num1 0.12 S/CO (0.00-0.79); HBsAGNum1 0.33 S/CO (0.00-0.99); Hepatitis A Antibody IgM 0.13 Index (0-0.79); Hepatitis B Surface Antigen Negative (Negative); ~HepC Num1 0.13 S/CO (0.00-0.79); ~Hepatitis A Antibody IgM Nonreactive (Nonreactive); ~Hepatitis B Surface Antibody NONREACTIVE (Nonreactive); ~Hepatitis C Antibody Nonreactive (Nonreactive)
[2024-12-15 04:23] LABS: TS Negative Control Passed; TS Panel A 0; TS Panel B 0; TS Positive Control Passed; TSpotTB Negative (Negative)
[2024-12-17 12:57] LABS: Hematocrit 33.4 % (35.0-45.0); Hemoglobin 11.2 g/dL (11.7-15.5); MCH 31.2 pg (27.0-33.0); MCV 93.0 fL (80.0-100.0); RBC 3.59 Million/uL (3.80-5.10); RDW 13.7 % (11.0-15.0)
== END 2024-12-12 13:24 | disposition home or self-care (01) ==
LOC: HO.WFDLDS 13:23
PROVIDERS: Physician Assistant; Referring Provider Student in an Organized Health Care Education/Training Program; Visit Provider Internal Medicine
DX: Z13.220 Encounter for screening for lipoid disorders (principal); I35.0 Nonrheumatic aortic (valve) stenosis; M06.09 Rheumatoid arthritis without rheumatoid factor, multiple sites; D50.8 Other iron deficiency anemias; R07.89 Other chest pain; K21.9 Gastro-esophageal reflux disease without esophagitis; R06.02 Shortness of breath
CPT/HCPCS: 36415; 80053; 80061; 82306; 82607; 82746; 83020; 83540; 84443; 85014; 85018; 85025; 85041; 85652; 86140; 86481; 86704; 86706; 86709; 86803; 87340

== ENCOUNTER 2024-12-20 14:43 | Outpatient (AMB) | payer OTHER, SELFPAY ==
--- NOTE | 2024-12-20 14:47 | A.OFFVIS_ITS ---
Vital Signs 12/20/24 14:50 Height 5 ft 2 in Weight 141 lb 1.533 oz BMI 25.8 BP 124/62 Blood Pressure Location Rt brachial Position Sitting Pulse 74 Pulse Source Pulse Oximeter Pulse Oximetry (%) 97 Oxygen Delivery Method Room Air Intake Visit Reasons: RA Intake Note: Patient presents for RA follow up. Allergies erythromycin base Allergy (Intermediate, Verified 12/20/24 14:49) Vomiting Seasonal Allergies Allergy (Intermediate, Verified 12/20/24 14:49) Runny Nose codeine (CODEINE) Allergy (Unknown, Verified 12/20/24 14:49) NAUSEA Medication List - Last Reconciled 12/20/24 by Genie Lopes MD calcium carbonate-vitamin D3 500 mg-10 mcg (400 unit) (Calcium 500 With D) 1 tab PO BID famotidine 20 mg PO BID folic acid 4 mg (4 x 1 mg) PO DAILY 90 days ibuprofen 200 mg PO Q6H PRN insulin syringe-needle U-100 Use once weekly with methotrexate methotrexate sodium (PF) 25 mg subcut QWEEK HPI Comments Details: Patient is a 74-year-old female with nonrheumatic aortic stenosis, polyarticular osteoarthritis, GERD, osteopenia and rheumatoid arthritis here today for follow up Interval History: Patient last seen 08/16/24 with me - Had GI symtoms associated with the Mtx: nausea, vomiting, diarrhea. Increased Mtx dose from 1mg to 4mg daily except Mtx days - C/o bilateral knee pain worse with activity. Received steroid injections to bilateral knees Today, - Doing well - knee injections helped but they started wearing off a couple weeks ago - Improved GI sx with Mtx Rheumatologic History: Onset May 2021 +++RF+++CCP January,: Methotrexate started. 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 Rheumatoid arthritis (~2020) Osteopenia IBS (irritable bowel syndrome) Personal history of nicotine dependence Periodontal disease Anemia, iron deficiency Intermittent pain and swelling of hand Surgical History History of basal cell carcinoma (BCC) excision History of colonoscopy History of eye surgery History of cataract surgery History of tonsillectomy S/P breast biopsy, right Family History Mother Anemia Breast cancer Hypertension Father Rheumatoid arthritis Lung cancer Hypertension Daughter Thyroid cancer Sister Parkinsons disease Social History Household Members Other:: lives alone Housing: House Are you a primary post anesthesia care unit nurse to a significant other at home: No Do you presently have visiting nurse or other home services: No 75 years or older and lives alone: No Alcohol intake: current Alcohol intake frequency: holidays/special occasions only Alcohol type: hard liquor Patient Tobacco Use Status: Former Tobacco user Years Smoked: (onset 17yo, 1ppd x 51yrs, 50pyh - quit 03/2019) e-Cigarette/Vaping Use: Never Used service: No Current occupational status: retired 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 Current occupational exposures/hazards: No Cognitive needs: No Hearing needs: Yes (some hearing loss) Vision needs: Yes (glasses) Review of Systems Const Details: Review of Systems Constitutional: Denies fever, chills, weight loss ENT: Denies vision changes, eye pain or eye redness, dental caries, dry mouth GI: Denies nausea, vomiting, diarrhea, abdominal pain, change in BM Pulm: Denies SOB, MALIK, hemoptysis, wheezing Cards: Denies chest pain, palpitations Skin: Denies Raynaud's, rash, nail changes, photosensitivity, RECORDING CLERK: Denies headaches, weakness, paresthesias, recurrent falls MSK: as per HPI All other systems reviewed and are unremarkable except noted above Physical Exam Vital Signs: Last Vital Signs Pulse 74 12/20/24 14:50 BP 124/62 12/20/24 14:50 Pulse Ox 97 12/20/24 14:50 Oxygen Delivery Method Room Air 12/20/24 14:50 BMI result Body Mass Index 25.8 Vital signs reviewed Physical Examination CONSTITUITIONAL Patient alert and cooperative. Well appearing and in no apparent painful distress HEENT Conjunctiva and sclera clear. Pupils equal round and reactive to light. No lymphadenopathy. CHEST/RESPIRATORY SYSTEM Normal respiratory effort and able to speak in complete sentences. Clear to auscultation bilaterally. No crackles, rales, rhonchi, wheezes heard. CARDIAC SYSTEM Regular rate and rhythm. 3/6 systolic murmur. Radial pulses intact bilaterally MSK Hands: Good paster supervisor strength bilaterally. No deformities noted. No synovitis noted to the MCPs, PIPs or DIPs. No tenderness to palpation of these joints. Heberden's nodes noted throughout Wrists: Full range of motion at the wrists without pain. No tenderness to palpation or synovitis noted to the wrists. Elbows: Full range of motion without pain. No tenderness, weakness, swelling, increased warmth or erythema. Shoulders: Full range of motion without pain. No tenderness, weakness, swelling, increased warmth or erythema. Knees: Full range of motion. No tenderness, swelling, increased warmth or erythema. crepitations felt bilaterally Ankles: Full range of motion. No tenderness, swelling, increased warmth or erythema.? Feet: Negative squeeze test. No tenderness to palpation or swelling of the MTPs. Tender points:?No tenderness to palpation of the bilateral trapezius, supraspinatus, greater trochanters, anterior costochondral junctions, bilateral gluteal areas, bilateral suboccipital muscle insertions SKIN Skin intact without rashes. Office Procedures AMB Joint Injection/Aspiration Joint Injection/Aspiration Details: Procedure was explained to the patient and informed consent was obtained. ? Risks associated with the procedure were discussed with the patient including but not limited to bleeding, infection, drug reactions and reactions to the topical anesthetic. Patient made aware of signs to look out for infectious complications. The area of interest was identified and confirmed with patient. ?This was subsequently cleaned with chlorhexidine x3. ? The area was then anesthetized using ethyl chloride spray. 40 mg Kenalog with 1 cc 1% lidocaine was injected without issue. ?Minimal to no bleeding. ?Patient tolerated procedure. Primary Site: right knee Prep: site was prepped using aseptic technique and ethochloride spray was applied Injected: 40 mg of, Kenalog, with 1 mL of and 1% plain lidocaine Approach Used: anterior Procedure: The patient tolerated the procedure well Coding 59505 - Large joint Procedure code (CPT) selection complete AMB Joint Injection/Aspiration Joint Injection/Aspiration Details: Procedure was explained to the patient and informed consent was obtained. ? Risks associated with the procedure were discussed with the patient including but not limited to bleeding, infection, drug reactions and reactions to the topical anesthetic. Patient made aware of signs to look out for infectious complications. The area of interest was identified and confirmed with patient. ?This was subsequently cleaned with chlorhexidine x3. ? The area was then anesthetized using ethyl chloride spray. 40 mg Kenalog with 1 cc 1% lidocaine was injected without issue. ?Minimal to no bleeding. ?Patient tolerated procedure. Primary Site: left knee Prep: site was prepped using aseptic technique and ethochloride spray was applied Injected: 40 mg of, Kenalog, with 1 mL of and 1% plain lidocaine Approach Used: anterior Procedure: The patient tolerated the procedure well Coding 36796 - Large joint Procedure code (CPT) selection complete Office Meds lidocaine (PF) 10 mg/mL (1 %) injection solution Performing Provider: Genie Lopes MD Performing Location: [facility] [place] Rheumatology Administered by: Genie Lopes MD on 12/20/24 15:23 Dose Route Admin Location Dispensed Lot Number Expiration Date [facility] [place] [employer] 1 mL Infiltration right knee 2 mL [id number] 08/04/26 56390-624-99 FR [employer] Total Dispensed Waste 2 mL 50 % Kenalog 40 mg/mL suspension for injection Performing Provider: Genie Lopes MD Performing Location: [facility] [place] Rheumatology Administered by: Genie Lopes MD on 12/20/24 15:23 Dose Route Admin Location Dispensed Lot Number Expiration Date [facility] [place] [employer] 40 mg intra-articular right knee 1 mL [id number] 12/04/25 [address]- 1 [employer] Total Dispensed Waste 1 mL 0 % lidocaine (PF) 10 mg/mL (1 %) injection solution Performing Provider: Genie Lopes MD Performing Location: [facility] [place] Rheumatology Administered by: Genie Lopes MD on 12/20/24 15:23 Dose Route Admin Location Dispensed Lot Number Expiration Date [facility] [place] [employer] 1 mL Infiltration left knee 2 mL [id number] 08/04/26 18092-727-53 [employer] Total Dispensed Waste 2 mL 50 % Kenalog 40 mg/mL suspension for injection Performing Provider: Genie Lopes MD Performing Location: [facility] [place] Rheumatology Administered by: Genie Lopes MD on 12/20/24 15:23 Dose Route Admin Location Dispensed Lot Number Expiration Date [facility] [place] [employer] 40 mg intra-articular left knee 1 mL [id number] 12/04/25 [address]-3 [employer] Total Dispensed Waste 1 mL 0 % Results Reviewed Results Reviewed: Laboratory Tests 07/25/24 12/12/24 15:13 13:30 WBC 6.9 RBC 3.59 L Hgb 11.1 L Hct 32.1 L Plt Count 319 ESR 58 H 30 H Sodium 139 Potassium 3.9 Chloride 105 Carbon Dioxide 26 BUN 14 Creatinine 0.66 AST 25 ALT 19 C-Reactive Protein 0.23 25-OH Vitamin D Total 57.0 Immunology labs 01/13/22 11:14 Rheumatoid Factor 362.0 H Cycl Citrul Peptide IgG >250 H Infectious serologies 11/21/23 08:12 Hepatitis A IgM Ab Nonreactive Hep Bs Antigen Negative Hep Bs Antibody NONREACTIVE Hep B Core Total Ab Nonreactive Hepatitis C Ab (EIA) Nonreactive TB Test (T-Spot) Com Negative DEXA 12/2023 FINDINGS: LEFT FEMUR, NECK: BMD 0.862 g/cm2, Z-score 0.5, T-score -1.3, osteopenia. LEFT FEMUR, TOTAL: BMD 0.899 g/cm2, Z-score 0.7, T-score -0.9, normal. AP SPINE L1-L4: BMD 0.892 g/cm2, Z-score -0.7, T-score -2.4, osteopenia. FRAX: Major osteoporotic fracture (clinical spine, forearm, hip or shoulder) 12.9%. Hip fracture 2.1%. Assessment & Plan Assessment & Plan (1) Rheumatoid arthritis: Onset Date: ~2020 Comment: Onset May 2021 +++RF+++CCP January,: Methotrexate started. changed to 01/2024 Code(s): M06.9 - Rheumatoid arthritis, unspecified Category: Medical Qualifiers: Rheumatoid arthritis location: multiple sites Rheumatoid factor presence: without rheumatoid factor Qualified Code(s): M06.09 - Rheumatoid arthritis without rheumatoid factor, multiple sites Plan: #Seropositive RA patient is a 74-year-old female with seropositive rheumatoid arthritis currently in remission on methotrexate subcutaneous injections every week. Doing much better on the 4 mg of folic acid. We will continue the current dose of methotrexate with plans to taper in the future Plan - Methotrexate 25mg SC every week - Folic acid 4mg every day - RTC 4 months - Labs before visit: CBC, CMP, ESR, CRP (2) Osteopenia: Comment: DEXA 12/2023. AP Spine -2.4, Left femur neck -1.3, Left femur total -0.9. FRAX 12.9/2.1 Code(s): M85.80 - Other specified disorders of bone density and structure, unspecified site Category: Medical Qualifiers: Osteopenia location: multiple sites Qualified Code(s): M85.89 - Other specified disorders of bone density and structure, multiple sites Plan: #Osteopenia patient with osteopenia with low FRAX score. Encouraged weight-bearing exercises, vitamin-D supplementation and eating calcium rich foods Plan - Continue ca-Vit D supplement (3) Bilateral primary osteoarthritis of knee: Comment: Bilateral knee injections 08/2024, 12/2024 Code(s): M17.0 - Bilateral primary osteoarthritis of knee Category: Medical Plan: #Bilateral Knee OA patient with bilateral knee OA status post steroid injection today (4) Encounter for methotrexate monitoring: Code(s): Z51.81 - Encounter for therapeutic drug level monitoring; Z79.631 - correction (current) use of antimetabolite agent Plan: #Long-term Current Use of Methotrexate Discussed with patient the benefits and risks of methotrexate for managing their rheumatic condition Benefits include reduced pain, reduced mortality, maintenance of remission and reduction of flares Risks include oral ulcers, photosensitivity, hepatotoxicity, hematologic toxicity, pneumonitis, flu-like symptoms (especially day after administration), nodulosis, lymphomas ? Limit alcohol and avoid Bactrim ? Monitoring: CBC, BMP, LFTs every 3-4 months and hepatitis serologies as needed Plan I spent 30 minutes reviewing the record and labs, taking a history, examining the patient, discussing the treatment plan, ordering diagnostic work up and documenting in the medical record Orders: Orders Complete Blood Count Auto Diff 4 Months M06.09 - Rheumatoid arthritis without rheumatoid factor, multiple sites Comprehensive Met. Panel 4 Months M06.09 - Rheumatoid arthritis without rheumatoid factor, multiple sites Erythrocyte Sedimentation Rate 4 Months M06.09 - Rheumatoid arthritis without rheumatoid factor, multiple sites AMB Joint Injection/Aspiration Today M17.0 - Bilateral primary osteoarthritis of knee AMB Joint Injection/Aspiration Today M17.0 - Bilateral primary osteoarthritis o f knee C Reactive Protein 4 Months M06.09 - Rheumatoid arthritis without rheumatoid factor, multiple sites Medications: Refilled methotrexate sodium (PF) 25 mg subcut QWEEK 8 mL 4RF M06.09 - Rheumatoid arthritis without rheumatoid factor, multiple sites folic acid 4 mg (4 x 1 mg) PO DAILY 360 tabs 1RF 90 days M06.9 - Rheumatoid arthritis, unspecified Coding Level of Care Code Est Pt Level 4 (17656) Complex EM visit Add On G2211 Diagnoses Rheumatoid arthritis of multiple sites with negative rheumatoid factor M06.09 Rheumatoid arthritis location: multiple sites Rheumatoid factor presence: without rheumatoid factor Osteopenia of multiple sites M85.89 Osteopenia location: multiple sites Bilateral primary osteoarthritis of knee M17.0 Encounter for methotrexate monitoring Z51.81; Z79.631 CPT Codes Coding - 49043 Large joint: 16884 - Large joint ([id number]) Coding - 01238 Large joint: 04688 - Large joint ([id number])
[2024-12-20 14:50] VITALS: BP 124/62; PULSE 74; O2SAT 97; BMI 25.8
== END 2024-12-20 15:13 | disposition home or self-care (01) ==
LOC: HO.RHE 14:43
PROVIDERS: PCP Physician Assistant; Visit Provider Student in an Organized Health Care Education/Training Program
DX: M06.09 Rheumatoid arthritis without rheumatoid factor, multiple sites (principal); M85.89 Other specified disorders of bone density and structure, multiple sites; M17.0 Bilateral primary osteoarthritis of knee; Z51.81 Encounter for therapeutic drug level monitoring; Z79.631 Long term (current) use of antimetabolite agent
CPT/HCPCS: 20610; 99214

== ENCOUNTER → 2024-12-20 14:43 | Outpatient (BNVA) | payer OTHER, SELFPAY | PROVIDERS: PCP Physician Assistant; Visit Provider Student in an Organized Health Care Education/Training Program | DX: M06.09 Rheumatoid arthritis without rheumatoid factor, multiple sites (principal); M85.89 Other specified disorders of bone density and structure, multiple sites; M17.0 Bilateral primary osteoarthritis of knee; Z51.81 Encounter for therapeutic drug level monitoring; Z79.631 Long term (current) use of antimetabolite agent | CPT/HCPCS: 20610; J2003; J3300 ==

== ENCOUNTER 2025-03-15 09:56 | Outpatient (REF) | payer OTHER, SELFPAY ==
[2025-03-15 11:02] LABS: MANUAL DIFF FLAG NO
[2025-03-15 11:16] LABS: Hematocrit 32.8 % (37.0-47.0); Hemoglobin 10.8 g/dl (12.0-16.0); Imm Gran Abs Auto 0.02 X10*3/uL (0.00-0.03); Imm Gran Pct Auto 0.3 % (0.0-0.4); Lymphocytes Absolute Auto 1.5 X10*3/uL (1.2-4.9); Mean Corpuscular HGB Conc 32.9 g/dl (31.0-35.0); Mean Corpuscular Hemoglobin 30.9 pg (27.0-33.0); Mean Corpuscular Volume 94.0 fL (80.0-98.0); NRBC Abs Auto 0.000 X10*3/uL (0.0-0.012); NRBC Pct Auto 0.0 /100WBC (0.0-0.2); Platelet Count 391 X10*3/uL (160-400); Red Blood Count 3.49 X10*6/uL (4.20-5.50); White Blood Count 7.4 X10*3/uL (4.8-10.8)
[2025-03-15 11:57] LABS: Alanine Aminotransferase 22 U/L (0-31); Albumin Level 4.1 g/dL (3.5-5.0); Alkaline Phosphatase 82 U/L (39-117); Anion Gap 10 (12-20); Aspartate Amino Transferase 22 U/L (5-31); Blood Urea Nitrogen 9 mg/dL (9-16); Calcium 9.2 mg/dL (8.4-10.2); Carbon Dioxide 29 mmol/L (22-29); Chloride 106 mmol/L (96-108); Estimated Glomerular Filt Rate > 60; Potassium 3.7 mmol/L (3.3-5.1); Sodium 141 mmol/L (135-145); Total Protein 7.0 g/dL (6.5-8.0)
== END 2025-03-15 09:57 | disposition home or self-care (01) ==
LOC: HO.WFDLDS 09:56
PROVIDERS: Visit Provider Student in an Organized Health Care Education/Training Program
DX: M06.09 Rheumatoid arthritis without rheumatoid factor, multiple sites (principal)
CPT/HCPCS: 36415; 80053; 85025; 85652; 86140

== ENCOUNTER 2025-04-03 13:28 | Outpatient (AMB) | payer OTHER, SELFPAY ==
--- NOTE | 2025-04-03 13:34 | A.OFFVIS_ITS ---
Vital Signs 04/03/25 13:40 Height 5 ft 2 in Weight 146 lb 9.718 oz BMI 26.8 BP 134/78 Blood Pressure Location Lt brachial Position Sitting Pulse 83 Pulse Source Pulse Oximeter Pulse Oximetry (%) 98 Oxygen Delivery Method Room Air Intake Visit Reasons: follow up Intake Note: Patient presents for RA follow up. Allergies erythromycin base Allergy (Intermediate, Verified 04/03/25 13:39) Vomiting Seasonal Allergies Allergy (Intermediate, Verified 04/03/25 13:39) Runny Nose codeine (CODEINE) Allergy (Unknown, Verified 04/03/25 13:39) NAUSEA Medication List - Last Reconciled 04/03/25 by Genie Lopes MD calcium carbonate-vitamin D3 500 mg-10 mcg (400 unit) (Calcium 500 With D) 1 tab PO BID famotidine 20 mg PO BID folic acid 4 mg (4 x 1 mg) PO DAILY 90 days ibuprofen 200 mg PO Q6H PRN insulin syringe-needle U-100 Use once weekly with methotrexate methotrexate sodium (PF) 15 mg (0.6 mL) subcut QWEEK HPI Comments Details: Patient is a 74-year-old female with nonrheumatic aortic stenosis, polyarticular osteoarthritis, GERD, osteopenia and rheumatoid arthritis here today for follow up Interval History: Patient last seen 12/20/24 with me - On Methotrexate 25mg SC every week and folic acid 4 mg daily - Doing well - knee injections helped but they started wearing off a couple weeks ago - Improved GI sx with Mtx Today - On Methotrexate 25mg SC every week and folic acid 4 mg daily - Bilateral knee pain. Lasted about 3 months - Return of GI sx Rheumatologic History: Onset May 2021 +++RF+++CCP January,: Methotrexate started. 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 Rheumatoid arthritis (~2020) Osteopenia IBS (irritable bowel syndrome) Personal history of nicotine dependence Periodontal disease Anemia, iron deficiency Intermittent pain and swelling of hand Surgical History History of basal cell carcinoma (BCC) excision History of colonoscopy History of eye surgery History of cataract surgery History of tonsillectomy S/P breast biopsy, right Family History Mother Anemia Breast cancer Hypertension Father Rheumatoid arthritis Lung cancer Hypertension Daughter Thyroid cancer Sister Parkinsons disease Social History Household Members Other:: lives alone Housing: House Are you a primary animal daycare provider to a significant other at home: No Do you presently have visiting nurse or other home services: No 75 years or older and lives alone: No Alcohol intake: current Alcohol intake frequency: holidays/special occasions only Alcohol type: hard liquor Patient Tobacco Use Status: Former Tobacco user Years Smoked: (onset 17yo, 1ppd x 51yrs, 50pyh - quit 03/2019) e-Cigarette/Vaping Use: Never Used service: No Current occupational status: retired 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 Current occupational exposures/hazards: No Cognitive needs: No Hearing needs: Yes (some hearing loss) Vision needs: Yes (glasses) Review of Systems Narrative Review of Systems Constitutional: Denies fever, chills, weight loss ENT: Denies vision changes, eye pain or eye redness, dental caries, dry mouth GI: Denies nausea, vomiting, diarrhea, abdominal pain, change in BM Pulm: Denies SOB, MALIK, hemoptysis, wheezing Cards: Denies chest pain, palpitations Skin: Denies Raynaud's, rash, nail changes, photosensitivity, [employer] SERVICE MANAGER: Denies headaches, weakness, paresthesias, recurrent falls MSK: as per HPI All other systems reviewed and are unremarkable except noted above Physical Exam Exam Exam: Vital signs reviewed Physical Examination CONSTITUITIONAL Patient alert and cooperative. Well appearing and in no apparent painful distress MSK Hands * Right Hand: Able to make a fist. No swelling or tenderness to palpation of the MCPs, PIPs or DIPs. * Left Hand: Able to make a fist. No swelling or tenderness to palpation of the MCPs, PIPs or DIPs. * Herbedens nodes noted bilaterally Wrists * Right Wrist: Full ROM to flexion and extension. No swelling or TTP * Left Wrist: Full ROM to flexion and extension. No swelling or TTP Elbows * Right Elbow: Full ROM. No swelling or TTP. No TTP of the medial epicondyle. No TTP of the lateral epicondyle * Left Elbow: Full ROM. No swelling or TTP. No TTP of the medial epicondyle. No TTP of the lateral epicondyle Shoulders * Right shoulder: Full ROM. No swelling noted. No TTP of the AC joint. No TTP of the subacromial bursa. No TTP of the posterior shoulder * Left shoulder: Full ROM. No swelling noted. No TTP of the AC joint. No TTP of the subacromial bursa. No TTP of the posterior shoulder Knees * Right knee: Full ROM. No swelling noted. No TTP of the knee joint line. No TTP of pes anserine bursa * Left knee: Full ROM. No swelling noted. No TTP of the knee joint line. No TTP of pes anserine bursa. * Crepitations felt bilaterally Ankles * Right ankle: Good ankle dorsiflexion and plantar flexion. No swelling. No TTP of the ankle joint * Left ankle: Good ankle dorsiflexion and plantar flexion. No swelling. No TTP of the ankle joint Feet * Right foot: Negative squeeze test * Left foot: Negative squeeze test Tender points? * No tenderness to palpation of the bilateral trapezius, supraspinatus, anterior costochondral junctions, bilateral suboccipital muscle insertions SKIN No rashes Vital Signs: Last Vital Signs Pulse 83 04/03/25 13:40 BP 134/78 04/03/25 13:40 Pulse Ox 98 04/03/25 13:40 Oxygen Delivery Method Room Air 04/03/25 13:40 BMI result Body Mass Index 26.8 Office Procedures AMB Joint Injection/Aspiration Joint Injection/Aspiration Details: Procedure was explained to the patient and informed consent was obtained. ? Risks associated with the procedure were discussed with the patient including but not limited to bleeding, infection, drug reactions and reactions to the topical anesthetic. Patient made aware of signs to look out for infectious complications. The area of interest was identified and confirmed with patient. ?This was subsequently cleaned with chlorhexidine x 2. ? The area was then anesthetized using ethyl chloride spray. 40 mg Kenalog with 1 cc 1% lidocaine was injected without issue. ?Minimal to no bleeding. ?Patient tolerated procedure. Primary Site: right knee Prep: site was prepped using aseptic technique and ethochloride spray was applied Injected: 40 mg of, Kenalog, with 1 mL of, 1% plain lidocaine and in the joint Approach Used: anterior Procedure: The patient tolerated the procedure well Coding 41419 - Large joint Procedure code (CPT) selection complete AMB Joint Injection/Aspiration Joint Injection/Aspiration Details: Procedure was explained to the patient and informed consent was obtained. ? Risks associated with the procedure were discussed with the patient including but not limited to bleeding, infection, drug reactions and reactions to the topical anesthetic. Patient made aware of signs to look out for infectious complications. The area of interest was identified and confirmed with patient. ?This was subsequently cleaned with chlorhexidine x 2. ? The area was then anesthetized using ethyl chloride spray. 40 mg Kenalog with 1 cc 1% lidocaine was injected without issue. ?Minimal to no bleeding. ?Patient tolerated procedure. Primary Site: left knee Prep: site was prepped using aseptic technique and ethochloride spray was applied Injected: 40 mg of, Kenalog, with 1 mL of, 1% plain lidocaine and in the joint Approach Used: anterior Procedure: The patient tolerated the procedure well Coding 23789 - Large joint Procedure code (CPT) selection complete Office Meds lidocaine (PF) 10 mg/mL (1 %) injection solution Performing Provider: Genie Lopes MD Performing Location: [facility] Administered by: Philip Loaiza RN on 04/03/25 14:50 Dose Route Admin Location Dispensed Lot Number Expiration Date [facility] Labor Standards Director 1 mL Infiltration right knee 2 mL [id number] 11/03/26 13649-324-25 FR [employer] Total Dispensed Waste 2 mL 50 % Kenalog 40 mg/mL suspension for injection Performing Provider: Genie Lopes MD Performing Location: [facility] Administered by: Philip Loaiza RN on 04/03/25 14:50 Dose Route Admin Location Dispensed Lot Number Expiration Date [facility] Labor Standards Director 40 mg intra-articular right knee 1 mL [id number] 12/03/26 [address]- 1 [employer] Total Dispensed Waste 1 mL 0 % lidocaine (PF) 10 mg/mL (1 %) injection solution Performing Provider: Genie Lopes MD Performing Location: [facility] Administered by: Philip Loaiza RN on 04/03/25 14:50 Dose Route Admin Location Dispensed Lot Number Expiration Date [facility] Labor Standards Director 1 mL Infiltration left knee 2 mL [id number] 11/03/26 83288-262-99 [employer] Total Dispensed Waste 2 mL 50 % Kenalog 40 mg/mL suspension for injection Performing Provider: Genie Lopes MD Performing Location: [facility] Administered by: Philip Loaiza RN on 04/03/25 14:50 Dose Route Admin Location Dispensed Lot Number Expiration Date [employer] Labor Standards Director 40 mg intra-articular left knee 1 mL [id number] 12/03/26 [address]-2 [employer] Total Dispensed Waste 1 mL 0 % Results Reviewed Results Reviewed: Laboratory Tests 12/12/24 03/15/25 13:30 10:00 WBC 7.4 RBC 3.49 L Hgb 10.8 L Hct 32.8 L Plt Count 391 ESR 36 H Sodium 141 Potassium 3.7 Chloride 106 Carbon Dioxide 29 BUN 9 Creatinine 0.62 AST 22 ALT 22 C-Reactive Protein 0.23 0.71 H Immunology labs 01/13/22 11:14 Rheumatoid Factor 362.0 H Cycl Citrul Peptide IgG >250 H Infectious serologies 11/21/23 08:12 Hepatitis A IgM Ab Nonreactive Hep Bs Antigen Negative Hep Bs Antibody NONREACTIVE Hep B Core Total Ab Nonreactive Hepatitis C Ab (EIA) Nonreactive TB Test (T-Spot) Com Negative DEXA 12/2023 FINDINGS: LEFT FEMUR, NECK: BMD 0.862 g/cm2, Z-score 0.5, T-score -1.3, osteopenia. LEFT FEMUR, TOTAL: BMD 0.899 g/cm2, Z-score 0.7, T-score -0.9, normal. AP SPINE L1-L4: BMD 0.892 g/cm2, Z-score -0.7, T-score -2.4, osteopenia. FRAX: Major osteoporotic fracture (clinical spine, forearm, hip or shoulder) 12.9%. Hip fracture 2.1%. Assessment & Plan Assessment & Plan (1) Rheumatoid arthritis: Onset Date: ~2020 Comment: Onset May 2021 +++RF+++CCP January,: Methotrexate started. changed to SQ 01/2024 Code(s): M06.9 - Rheumatoid arthritis, unspecified Category: Medical Qualifiers: Rheumatoid arthritis location: multiple sites Rheumatoid factor presence: without rheumatoid factor Qualified Code(s): M06.09 - Rheumatoid arthritis without rheumatoid factor, multiple sites Plan: #Seropositive RA Patient is a 74-year-old female with seropositive rheumatoid arthritis currently in remission on methotrexate subcutaneous injections every week. Recurrence of the GI sx. We will decrease and monitor Plan - Methotrexate 15mg SC every week - Folic acid 4mg every day - RTC 4 months - Labs before visit: CBC, CMP, ESR, CRP (2) Osteopenia: Comment: DEXA 12/2023. AP Spine -2.4, Left femur neck -1.3, Left femur total -0.9. FRAX 12.9/2.1 Code(s): M85.80 - Other specified disorders of bone density and structure, unspecified site Category: Medical Qualifiers: Osteopenia location: multiple sites Qualified Code(s): M85.89 - Other specified disorders of bone density and structure, multiple sites Plan: #Osteopenia Patient with osteopenia with low FRAX score. Encouraged weight-bearing exercises, vitamin-D supplementation and eating calcium rich foods Plan - Continue ca-Vit D supplement (3) Bilateral primary osteoarthritis of knee: Comment: Bilateral knee injections 08/2024, 12/2024 Code(s): M17.0 - Bilateral primary osteoarthritis of knee Category: Medical Plan: #Bilateral Knee OA Steroid injections not lasting as long as they were previously Recommended viscosupplementation (4) Encounter for methotrexate monitoring: Code(s): Z51.81 - Encounter for therapeutic drug level monitoring; Z79.631 - watermaster (current) use of antimetabolite agent Plan: #Long-term Current Use of Methotrexate Discussed with patient the benefits and risks of methotrexate for managing their rheumatic condition Benefits include reduced pain, reduced mortality, maintenance of remission and reduction of flares Risks include oral ulcers, photosensitivity, hepatotoxicity, hematologic toxicity, pneumonitis, flu-like symptoms (especially day after administration), nodulosis, lymphomas ? Limit alcohol and avoid Bactrim ? Monitoring: CBC, BMP, LFTs every 3-4 months and hepatitis serologies as needed Plan I spent 30 minutes reviewing the record and labs, taking a history, examining the patient, discussing the treatment plan, ordering diagnostic work up and documenting in the medical record Orders: Orders AMB Joint Injection/Aspiration Today M17.0 - Bilateral primary osteoarthritis of knee AMB Joint Injection/Aspiration Today M17.0 - Bilateral primary osteoarthritis of knee Medications: Changed From methotrexate sodium (PF) 25 mg subcut QWEEK 8 mL 4RF M06.09 - Rheumatoid arthritis without rheumatoid factor, multiple sites To methotrexate sodium (PF) 15 mg (0.6 mL) subcut QWEEK 10 mL 1RF M06.09 - Rheumatoid arthritis without rheumatoid factor, multiple sites Refilled folic acid 4 mg (4 x 1 mg) PO DAILY 360 tabs 1RF 90 days M06.9 - Rheumatoid arthritis, unspecified Coding Level of Care Code Est Pt Level 4 (68284) Complex EM visit Add On G2211 Diagnoses Rheumatoid arthritis of multiple sites with negative rheumatoid factor M06.09 Rheumatoid arthritis location: multiple sites Rheumatoid factor presence: without rheumatoid factor Osteopenia of multiple sites M85.89 Osteopenia location: multiple sites Bilateral primary osteoarthritis of knee M17.0 Encounter for methotrexate monitoring Z51.81; Z79.631 CPT Codes Coding - 09444 Large joint: 31885 - Large joint ([id number]) Coding - 87670 Large joint: 97687 - Large joint ([id number])
[2025-04-03 13:40] VITALS: BP 134/78; PULSE 83; O2SAT 98; BMI 26.8
== END 2025-04-03 14:33 | disposition home or self-care (01) ==
LOC: HO.RHES 13:29
PROVIDERS: PCP Physician Assistant; Visit Provider Student in an Organized Health Care Education/Training Program
DX: M06.09 Rheumatoid arthritis without rheumatoid factor, multiple sites (principal); M85.89 Other specified disorders of bone density and structure, multiple sites; M17.0 Bilateral primary osteoarthritis of knee; Z51.81 Encounter for therapeutic drug level monitoring; Z79.631 Long term (current) use of antimetabolite agent
CPT/HCPCS: 20610; 99214

== ENCOUNTER → 2025-04-03 13:28 | Outpatient (BNVA) | payer OTHER, SELFPAY | PROVIDERS: PCP Physician Assistant; Visit Provider Student in an Organized Health Care Education/Training Program | DX: M85.89 Other specified disorders of bone density and structure, multiple sites (principal); M17.0 Bilateral primary osteoarthritis of knee; Z51.81 Encounter for therapeutic drug level monitoring; Z79.631 Long term (current) use of antimetabolite agent; Z79.899 Other long term (current) drug therapy | CPT/HCPCS: 20610; J2003; J3301 ==

== ENCOUNTER 2025-04-29 11:11 | Outpatient (REF) | payer OTHER, SELFPAY ==
--- NOTE | ~2025-04-29 | XR_ITS ---
EXAMINATION: X-ray bilateral knees CLINICAL INFORMATION: Osteoarthritis COMPARISON: None TECHNIQUE: Right knee 3 views. Left knee 4 views. FINDINGS: Right knee: No visible acute fracture, dislocation or suspicious bony lesion. Joint spaces are maintained. Trace suprapatellar joint fluid. No abnormal soft tissue calcification. Left knee: Severe medial compartment arthritis. Genu varus. Mild lateral and patellofemoral arthritis. No visible acute fracture or dislocation. Small effusion. 8 mm chronic appearing calcification/ossification projected along the anterior aspect of the proximal tibia. XR/XR knee RT 3V IMPRESSION: Right knee: No acute findings Left knee: Tricompartment arthritis. Severe medial compartment arthritis. Small effusion. Electronically signed by: Frederick Mccloud MD 04/29/2025 01:01 PM [facility]
--- NOTE | ~2025-04-29 | XR_ITS ---
EXAMINATION: X-ray bilateral knees CLINICAL INFORMATION: Osteoarthritis COMPARISON: None TECHNIQUE: Right knee 3 views. Left knee 4 views. FINDINGS: Right knee: No visible acute fracture, dislocation or suspicious bony lesion. Joint spaces are maintained. Trace suprapatellar joint fluid. No abnormal soft tissue calcification. Left knee: Severe medial compartment arthritis. Genu varus. Mild lateral and patellofemoral arthritis. No visible acute fracture or dislocation. Small effusion. 8 mm chronic appearing calcification/ossification projected along the anterior aspect of the proximal tibia. XR/XR knee LT 3V IMPRESSION: Right knee: No acute findings Left knee: Tricompartment arthritis. Severe medial compartment arthritis. Small effusion. Electronically signed by: Frederick Mccloud MD 04/29/2025 01:01 PM [facility]
== END 2025-04-29 11:12 | disposition home or self-care (01) ==
LOC: HO.XRAY 11:11
PROVIDERS: PCP Internal Medicine; Visit Provider Student in an Organized Health Care Education/Training Program
DX: M17.0 Bilateral primary osteoarthritis of knee (principal)
CPT/HCPCS: 73562

== ENCOUNTER → 2025-04-29 11:19 | Outpatient (BNV) | payer OTHER, SELFPAY | PROVIDERS: PCP Internal Medicine; Visit Provider Radiology Diagnostic Ultrasound | DX: M17.0 Bilateral primary osteoarthritis of knee (principal) | CPT/HCPCS: 73562 ==

== ENCOUNTER 2025-05-14 09:49 | Outpatient (REF) | payer OTHER, SELFPAY ==
--- NOTE | ~2025-05-14 | CT_ITS ---
EXAMINATION: CT LUNG SCREENING HISTORY: Z87.891 - Personal history of nicotine dependence TECHNIQUE: Low dose axial images were obtained from the sternal notch to upper abdomen without IV contrast per standard departmental protocol. Sagittal and coronal reformatted images were also obtained and reviewed. One or more of the following techniques was used for dose reduction: Automated exposure control, adjustment of the mA and/or kV according to patient size, use of iterative reconstruction technique. DLP: 43 mGy-cm COMPARISON: Comparison is made with the prior examination dated 04/06/2024. FINDINGS: Lung nodules: Again seen are scattered 2-3 mm nodules in the right upper lobe (series 5, images 35 and 41), in the right middle lobe (series 5, image 76), and in the left upper lobe (series 5, image 63). No suspicious pulmonary nodules are identified. Emphysema: mild Coronary Calcification: moderate Aortic Arch Calcification: mild Potentially Significant Incidentals : none Additional Chest Findings: There is no pleural or pericardial effusion. No mediastinal or axillary lymphadenopathy is identified. There is a small hiatal hernia. Visualized upper abdomen: The visualized portions of the liver, spleen, and adrenals have an unremarkable unenhanced appearance. CT/CT lung screening IMPRESSION: No suspicious pulmonary nodules are identified. LUNG-RADS ASSESSMENT: Lung-RADS 2: Benign MANAGEMENT: Continue annual screening with LDCT in 12 months Category S: N/A Electronically signed by: Clarence Barrera MD 05/14/2025 10:34 AM [facility] [place]
== END 2025-05-14 09:50 | disposition home or self-care (01) ==
LOC: HO.CT 09:49
PROVIDERS: PCP Internal Medicine; Visit Provider Physician Assistant Medical
DX: Z87.891 Personal history of nicotine dependence (principal)
CPT/HCPCS: 71271

== ENCOUNTER → 2025-05-14 09:51 | Outpatient (BNV) | payer OTHER, SELFPAY | PROVIDERS: PCP Internal Medicine; Visit Provider Radiology Diagnostic Radiology | DX: Z12.2 Encounter for screening for malignant neoplasm of respiratory organs (principal); Z87.891 Personal history of nicotine dependence | CPT/HCPCS: 71271 ==